=== PATIENT | female | born 1940 | race Caucasian/White ===

== ENCOUNTER 2022-10-10 14:39 | Outpatient (CLI) | payer MEDICARE, SELFPAY ==
--- NOTE | 2022-10-10 15:00 | CRLHL7_ITS ---
For Patients: As a result of the Century Cures Act, medical imaging exams and procedure reports are released immediately into your electronic medical record. You may view this report before your referring provider. If you have questions, please contact your health care provider. INDICATION: HX OF ABNORMAL THYROID ULTRASOUND COMPARISON: No priors are available. TECHNIQUE: Garner scale and color Doppler images were acquired of the thyroid gland. FINDINGS: The thyroid gland demonstrates heterogeneous echogenicity and has a smooth outer contour. The right lobe measures 5.0 x 1.9 x 2.4 cm and the left lobe measures 4.7 x 1.7 x 2.0 cm in size. The isthmus measures 2 millimeters. Hypoechoic nodule within the upper pole of the left thyroid lobe measures 1.1 x 0.9 x 1.0 cm. Sponge like nodule present within the midportion of the left thyroid lobe measuring 1.1 x 0.8 x 1.1 cm. There is a heterogeneous solid and cystic nodule within the lower pole of the right thyroid lobe measuring approximately 3.0 x 1.9 x 2.0 cm although the margins are difficult to ascertain. The color Doppler images demonstrate normal vascularity. There is no evidence of cervical lymphadenopathy or parathyroid mass. IMPRESSION: Bilateral nodules. Given that there is a history of outside thyroid ultrasounds, would recommend obtaining these studies if available. Alternatively, if these do not become available or are not available a follow-up in 1 year is recommended. Dictated by Tan Hay MD @ 10/13/2022 12:03:02 PM (Electronically Signed)
== END 2022-10-10 14:40 | disposition home or self-care (01) ==
PROVIDERS: PCP Family Medicine; Visit Provider Family Medicine
DX: R93.89 Abnormal findings on diagnostic imaging of other specified body structures (principal)
CPT/HCPCS: 76536

== ENCOUNTER 2022-10-24 11:48 | Outpatient (CLI) | payer MEDICARE, SELFPAY | END 2022-10-24 11:49 | disposition home or self-care (01) | LOC: OP CLINIC 11:49 | PROVIDERS: PCP Family Medicine; Visit Provider Internal Medicine | DX: K22.70 Barrett's esophagus without dysplasia (principal) | CPT/HCPCS: 43200; J2250; J3010 ==

== ENCOUNTER 2022-10-26 18:38 | Emergency (ER) | payer MEDICARE, SELFPAY ==
[2022-10-26 19:04] VITALS: BP 159/86; PULSE 84; RESP 18; TEMP 35.9; O2SAT 97; BMI 25.8
--- NOTE | 2022-10-26 19:17 | ED.GENADULT ---
HPI - General Adult General Chief complaint: Ear/Nose/Throat Problem Stated complaint: severe throat and ear pain Time Seen by Provider: 10/26/22 18:41 History of Present Illness HPI narrative: Patient is a pleasant 82 white female lives in [place] here with her daughter. She had an endoscopy attempted couple days ago and the tube was unable to pass there was thought to be some anxiety, some mucus involved. Patient reports she has had pain in her left side of her jaw area and into her ear since that happen. She has had a lot of mucus in her throat, is able to swallow and eat but not without complete discomfort she has no bleeding noticed no blood in her stool no vomiting blood no vomiting or nausea no chest pain breathing problem. Related Data Previous Rx's Medication Instructions Recorded clonazepam 1 mg tablet 1 mg PO BID PRN anxiety #60 tabs 09/10/22 fluoxetine 20 mg capsule 20 mg PO QDAY #90 caps 09/10/22 fluoxetine 40 mg capsule 40 mg PO QDAY #90 caps 09/10/22 gabapentin 300 mg capsule 300 - 600 mg PO TID #360 caps 09/10/22 metformin 500 mg tablet,extended 500 mg PO QDAY #90 tabs 09/10/22 release 24 hr omeprazole 20 mg capsule,delayed 20 mg PO QDAY #90 caps 09/10/22 release oxybutynin chloride 5 mg tablet 5 mg PO BID #180 tabs 09/10/22 Allergies Allergy/AdvReac Type Severity Reaction Status Date / Time Sulfa (Sulfonamide Allergy Mild Itching Verified 09/10/22 10:27 Antibiotics) cholecalciferol (vitamin D3) Allergy Unknown Hives Verified 09/24/22 12:48 ergocalciferol (vitamin D2) Allergy Unknown Verified 09/24/22 12:48 Review of Systems Status of ROS: Reports: 6 or more systems reviewed and unremarkable except as noted in History and below [facility] Medical History History of breast cancer ?Z85.3 - Personal history of malignant neoplasm of breast (ICD-10) Surgical History H/O esophagogastroduodenoscopy (2010) ?Z98.890 - Other specified postprocedural states (ICD-10) H/O mastectomy (1986) ?Z90.10 - Acquired absence of unspecified breast and nipple (ICD-10) History of carpal tunnel surgery of left wrist (2013) ?Z98.890 - Other specified postprocedural states (ICD-10) History of foot surgery (1979) ?Z98.890 - Other specified postprocedural states (ICD-10) History of phacoemulsification of cataract of both eyes with intraocular lens implantation (2007) ?Z98.41 - Cataract extraction status, right eye (ICD-10) ?Z98.42 - Cataract extraction status, left eye (ICD-10) ?Z96.1 - Presence of intraocular lens (ICD-10) Hx of tonsillectomy (1945) ?Z90.89 - Acquired absence of other organs (ICD-10) Family History Mother Alzheimers disease Stroke Father Stroke Social History Smoking Status: Never smoker Do you use any of these nicotine containing products: None Second hand tobacco smoke exposure: No How often do you have a drink containing alcohol: never AUDIT-C Alcohol total score: 0 Non-prescribed substance use: denies use Little interest or pleasure in doing things: several days Feeling down, depressed, or hopeless: several days service: No Exam Narrative: Exam Narrative: Objective: Vital signs look largely unremarkable O2 sats excellent Patient is alert or x3 somewhat anxious HEENT is unremarkable mouth is clear, no redness no bleeding Left TM shows some mild pinkness and prep some fluid behind the left ear. Const: Vital Signs, click to edit/add: Vital Signs - 24 hr 10/26/22 19:04 Temperature 96.7 F L Pulse Rate [Right Pulse Oximeter] 84 Respiratory Rate 18 Blood Pressure [Ri ght Upper Arm] 159/86 H Pulse Oximetry 97 Oxygen Delivery Me thod Room Air Course Vital Signs Vital signs: Initial Vital Signs Temperature 96.7 F L 10/26/22 19:04 Temperature Source Temporal Artery Scan 10/26/22 19:04 Pulse Rate 84 10/26/22 19:04 Respiratory Rate 18 10/26/22 19:04 Blood Pressure 159/86 H 10/26/22 19:04 Blood Pressure Mean 110 H 10/26/22 19:04 Blood Pressure Position Sitting 10/26/22 19:04 Pulse Oximetry 97 10/26/22 19:04 Oxygen Delivery Method Room Air 10/26/22 19:04 Vital Signs Temperature 96.7 F L 10/26/22 19:04 Pulse Rate 84 10/26/22 19:04 Respiratory Rate 18 10/26/22 19:04 Blood Pressure 159/86 H 10/26/22 19:04 Pulse Oximetry 97 10/26/22 19:04 Oxygen Delivery Method Room Air 10/26/22 19:04 Temperature 96.7 F L 10/26/22 19:04 Pulse Rate 84 10/26/22 19:04 Respiratory Rate 18 10/26/22 19:04 Blood Pressure 159/86 H 10/26/22 19:04 Pulse Oximetry 97 10/26/22 19:04 Oxygen Delivery Method Room Air 10/26/22 19:04 Medical Decision Making MDM Narrative Medical decision making narrative: 82-year-old female who has got a history of anxiety and had and Moreno's esophagus diagnostic scope scheduled and difficulty with 2 passage. At this point she has got some evidence of eustachian tube dysfunction, perhaps mild otitis media on the left I think be mckee to try antibiotics and pain medication. The patient was offered CT scanning of the neck to make sure there is no bleeding or mass or other concern and she declined this. I think in the next couple of days she continued as symptoms I would perform CT with IV contrast of her neck I did suggest she could do this today and she wished to defer try antibiotics and pain medication. She will recheck sooner problems or concerns Discharge Plan Discharge Clinical Impression: Dysfunction of eustachian tube, Pain in throat, Acute ear pain Patient Disposition: Home w/ Parent or Adult Condition: Stable Additional Instructions: Light diet, antibiotic and pain medicine as needed. Recheck with primary care in 2-3 days not improving changes concerns worsening return to ED in consider CT scanning of the neck. Return sooner problems or concerns. Activity Level: Light activity Discharge Diet: Full Liquid Prescriptions: No Action clonazepam 1 mg tablet 1 mg PO BID PRN (Reason: anxiety) Qty: 60 0RF fluoxetine 20 mg capsule 20 mg PO QDAY Qty: 90 1RF Rx Instructions: total dose 60mg daily fluoxetine 40 mg capsule 40 mg PO QDAY Qty: 90 1RF Rx Instructions: total dose 60mg daily gabapentin 300 mg capsule 300 - 600 mg PO TID Qty: 360 1RF Rx Instructions: take 600mg in AM, 300mg in afternoon, 300mg at bedtime metformin 500 mg tablet extended release 24 hr 500 mg PO QDAY Qty: 90 3RF omeprazole 20 mg capsule,delayed release(DR/EC) 20 mg PO QDAY Qty: 90 1RF oxybutynin chloride 5 mg tablet 5 mg PO BID Qty: 180 1RF Follow Up/Referrals: Shubham Frankel MD [Primary Care Provider] - Stand Alone Forms: [employer] Info Instructions
== END 2022-10-26 19:41 | disposition home or self-care (01) ==
LOC: ED 19:25
PROVIDERS: Emergency Provider Family Medicine; PCP Family Medicine
DX: H92.02 Otalgia, left ear (principal); H69.80 Other specified disorders of Eustachian tube, unspecified ear; R07.0 Pain in throat
CPT/HCPCS: 99282; 99283; 99284

== ENCOUNTER 2022-10-28 08:57 | Emergency (ER) | payer MEDICARE, SELFPAY ==
[2022-10-28 09:17] VITALS: BP 147/60; PULSE 93; RESP 18; TEMP 36.1; O2SAT 96; BMI 25.4
--- NOTE | 2022-10-28 10:49 | CRLHL7_ITS ---
For Patients: As a result of the Century Cures Act, medical imaging exams and procedure reports are released immediately into your electronic medical record. You may view this report before your referring provider. If you have questions, please contact your health care provider. INDICATION: Chest and neck pain post endoscopy. TECHNIQUE: CT chest without contrast. COMPARISON: None. FINDINGS: Lungs and pleura: Few scattered small, sub 6 millimeter pulmonary nodules (for example 2 millimeter left lower lobe nodule series 4, image 70). No airspace consolidation. No pleural effusions, pleural thickening, or pneumothorax. Heart and vasculature: Heart size is normal. Thoracic aorta and pulmonary artery are normal in caliber. Moderate coronary artery and aortic calcifications. Mitral annular calcifications. Lymph nodes/mediastinum: No mediastinal, hilar, or axillary adenopathy. Air-filled, mildly distended esophagus. No focal esophageal lesion evident. No evidence of perforation. No pneumomediastinum. Chest wall: Right breast implant. No suspicious chest wall aspect. Upper abdomen: Slight low-density nodular thickening of the left adrenal gland, compatible wi with hyperplasia or small adenoma. Bones: Unremarkable for age. IMPRESSION: Air-filled, slightly distended esophagus. No focal esophageal lesion. No findings of esophageal perforation or paraesophageal inflammation. No pneumomediastinum or pneumothorax. Please note that all CT scans at this facility use dose modulation, iterative reconstruction, and/or weight-based dosing when appropriate to reduce radiation dose to as low as reasonably achievable. Dictated by Kwabena Fish MD @ 10/28/2022 12:01:37 PM (Electronically Signed)
--- NOTE | 2022-10-28 10:49 | CRLHL7_ITS ---
For Patients: As a result of the 21st Century Cures Act, medical imaging exams and procedure reports are released immediately into your electronic medical record. You may view this report before your referring provider. If you have questions, please contact your health care provider. Indication: Post upper endoscopy, neck chest and ear pain on the left side, incomplete) DOS copy Technique: Volumetric multidetector CT images of the cervical soft tissues were obtained before and after the administration of low osmolar intravenous contrast. 81 cc Isovue 370 low osmolar intravenous contrast Comparison: None available. Findings: The partially visualized brain parenchyma is normal in attenuation without evidence of abnormal enhancement. The orbits and their contents are within normal limits. The paranasal sinuses are clear. The mastoid air cells are clear. The nasopharynx is unremarkable. The fossae of Rosenmuller are clear. There is minimal mucosal prominence within the oropharynx without evidence of mass. Evaluation is mildly limited due to beam hardening artifact. There is demonstration of a somewhat bulky appearance of the left hypopharynx with effacement of the left piriform sinus and thickening of the epiglottis and aryepiglottic folds. This is best appreciated on series 6, image 36. There is demonstration of focal low-density mass versus marked thickening of the proximal esophagus seen best on series 6, image 54 measuring 1.8 centimeters in greatest dimension. There is effacement of the posterior trachea at this level. There is prominence of the right laryngeal ventricle and lateralization of the vocal fold which may represent vocal fold paralysis. There is a bulky thyroid gland again seen with multiple nodules. There are somewhat pathologic appearing lymph nodes in the left infraclavicular space on series 6, image 49 measuring 1.2 centimeters in greatest dimension. The jugular veins are patent. There is severe atherosclerotic calcification of the left greater than right carotid bifurcations with likely high-grade stenosis of the left carotid artery. There is additional likely 50 percent stenosis of the proximal right internal carotid artery. The distal internal carotid arteries are otherwise patent. The lung apices demonstrate mild interstitial prominence which may represent minimal bronchial thickening versus pulmonary vascular congestion. There is a somewhat patulous esophagus appreciated with multiple lymph nodes in the prevascular space. The cervical vertebral body heights are grossly maintained with moderate to severe degenerative disc disease with disc height loss and marginal osteophyte formation. There is anterolisthesis of C3 on C4 and C4 on C5. There is degenerative change of the atlantoaxial joint and severe facet arthrosis. Impression: Somewhat bulky appearance of the hypo pharyngeal mucosa with effacement of the left piriform sinus and epiglottis without obvious discrete mass. Finding may represent moderate edema. Demonstration of a circumscribed mass lesion within the visualized proximal esophagus with rim enhancement best seen on series 6, image 54. This finding could represent an esophageal mass lesion versus focal stricture. Correlate with recent failed endoscopy. Somewhat pathologic appearance of left infraclavicular lymph nodes. 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 Please note that all CT scans at this facility use dose modulation, iterative reconstruction, and/or weight-based dosing when appropriate to reduce radiation dose to as low as reasonably achievable. Dictated by Sunil Islas MD @ 10/28/2022 12:10:32 PM (Electronically Signed)
[2022-10-28 11:04] LABS: Troponin, Point-of-Care* 0.01 ng/ml (0.01-0.04)
[2022-10-28 11:07] LABS: Lactate* 1.1 mmol/L (0.5-1.9)
[2022-10-28 11:15] LABS: Basophils Absolute Auto 0.04 K/uL (0.00-0.30); Basophils Percent Auto 0.5 % (0.0-3.0); Eosinophils Absolute Auto 0.09 K/uL (0.00-0.50); Eosinophils Percent Auto 1.1 % (0.0-7.0); Hematocrit 40.3 % (33.0-51.0); Hemoglobin* 13.2 gm/dL (12.0-16.0); Lymphocytes Percent Auto 17.2 % (20-44); Mean Corpuscular HGB Conc 33 gm/dL (32-36); Mean Corpuscular Hemoglobin 30 pg (26-34); Mean Corpuscular Volume 90 fL (80-100); Monocytes Percent Auto 8.4 % (0.0-11.0); Neutrophils Percent Auto 72.8 % (42.0-72.0); Platelet Count* 221 K/uL (140-440); RDW Coefficient of Variation % 13.6 % (11.5-15.5); Red Blood Count 4.47 m/uL (4.00-5.20); White Blood Count* 8.57 K/uL (4.50-11.00)
[2022-10-28] MEDS: HYDROmorphone 0.5 mg/0.5 ml inj IVP (11:25)
[2022-10-28] MEDS: 0.9 % SODIUM CHLORIDE 1000 ml 1,000 ML IV (11:25)
[2022-10-28] MEDS: PANTOPRAZOLE SODIUM 40 MG INJ IVP (11:26)
[2022-10-28 11:37] LABS: Chloride* 105 mmol/L (96-114)
[2022-10-28 11:38] LABS: Albumin* 4.5 g/dL (3.3-5.0); D Dimer Quantitative* 1.66 ug/ml (0.00-0.50); Sodium* 138 mmol/L (135-149)
[2022-10-28 11:40] LABS: Amylase* 54 U/L (18-89); Slide Review Reflex No
[2022-10-28 11:41] LABS: Alkaline Phosphatase* 55 U/L (40-150); Aspartate Amino Transferase* 20 U/L (12-35); Bilirubin Direct* 0.3 mg/dL (0.0-0.5); Bilirubin Total* 0.9 mg/dL (0.1-1.5); Blood Urea Nitrogen* 19 mg/dL (7-30); Carbon Dioxide* 23 mmol/L (20-32); Creatinine* 0.8 mg/dL (0.5-1.5); Est. Creatinine Clearance* 43.75; Estimated Glomerular Filt Rate 74 ml/min; Glucose* 121 mg/dL (60-115); Lipase* 38 U/L (23-300); Total Protein* 8.2 g/dL (6.0-8.3)
[2022-10-28 11:42] LABS: Alanine Aminotransferase* 13 U/L (4-35); Calcium* 9.8 mg/dL (8.4-10.6)
[2022-10-28 11:44] LABS: C Reactive Protein* 3.2 mg/dL (0.5-1.0)
[2022-10-28 11:54] LABS: PCR FLU A Negative PCR FLU A (Negative); PCR FLU B Negative PCR FLU B (Negative); PCR RSV Negative PCR RSV (Negative)
[2022-10-28 12:05] LABS: SARS PCR* Negative SARS-CoV-2 (Negative)
--- NOTE | 2022-10-28 16:37 | ED_ITS ---
HPI - General Adult General Chief complaint: Ear/Nose/Throat Problem Stated complaint: Endoscopy complications Time Seen by Provider: 10/28/22 10:47 Source: patient and family Mode of arrival: ambulatory Limitations: no limitations History of Present Illness HPI narrative: Patient is the 82-year-old female who underwent a upper endoscopy for the primary indication of follow-up parents, on Thursday since then she has been out tough time swallowing, it painful it goes up into her left ear, she was seen in the emergency room, started on antibiotics, and was offered a CT scan but she declined. She is back in today issues been no further improvement. Denies any fevers chills or sweats, no weight loss, denies any chest pain shortness of breath abdominal pain has been able to drink small amounts okay. Related Data Previous Rx's Medication Instructions Recorded clonazepam 1 mg tablet 1 mg PO BID PRN anxiety #60 tabs 09/10/22 fluoxetine 20 mg capsule 20 mg PO QDAY #90 caps 09/10/22 fluoxetine 40 mg capsule 40 mg PO QDAY #90 caps 09/10/22 gabapentin 300 mg capsule 300 - 600 mg PO TID #360 caps 09/10/22 metformin 500 mg tablet,extended 500 mg PO QDAY #90 tabs 09/10/22 release 24 hr omeprazole 20 mg capsule,delayed 20 mg PO QDAY #90 caps 09/10/22 release oxybutynin chloride 5 mg tablet 5 mg PO BID #180 tabs 09/10/22 Allergies Allergy/AdvReac Type Severity Reaction Status Date / Time Sulfa (Sulfonamide Allergy Mild Itching Verified 09/10/22 10:27 Antibiotics) cholecalciferol (vitamin D3) Allergy Unknown Hives Verified 09/24/22 12:48 ergocalciferol (vitamin D2) Allergy Unknown Verified 09/24/22 12:48 Review of Systems Status of ROS: Reports: 10 or more systems reviewed and unremarkable except as noted in History and below PFSH PFS Medical History History of breast cancer ?Z85.3 - Personal history of malignant neoplasm of breast (ICD-10) Surgical History H/O esophagogastroduodenoscopy (2010) ?Z98.890 - Other specified postprocedural states (ICD-10) H/O mastectomy (1986) ?Z90.10 - Acquired absence of unspecified breast and nipple (ICD-10) History of carpal tunnel surgery of left wrist (2013) ?Z98.890 - Other specified postprocedural states (ICD-10) History of foot surgery (1979) ?Z98.890 - Other specified postprocedural states (ICD-10) History of phacoemulsification of cataract of both eyes with intraocular lens implantation (2007) ?Z98.41 - Cataract extraction status, right eye (ICD-10) ?Z98.42 - Cataract extraction status, left eye (ICD-10) ?Z96.1 - Presence of intraocular lens (ICD-10) Hx of tonsillectomy (1945) ?Z90.89 - Acquired absence of other organs (ICD-10) Family History Mother Alzheimers disease Stroke Father Stroke Social History Smoking Status: Never smoker Do you use any of these nicotine containing products: None Second hand tobacco smoke exposure: No How often do you have a drink containing alcohol: never AUDIT-C Alcohol total score: 0 Non-prescribed substance use: denies use Little interest or pleasure in doing things: several days Feeling down, depressed, or hopeless: several days service: No Exam Narrative: Exam Narrative: Patient is seen and stabilization room 2, she is in no apparent distress, her pupils are equal round reactive to light, there is no scleral icterus redness or TMs are normal, oropharynx is normal, and seems with no masses bleeding, chest is clear bilaterally the wheezing crackles noted heart sounds are normal, abdomen is soft, there is no guarding, no organomegaly, no tenderness to palpation, neck reveals no tenderness to palpation, no obvious masses, Const: Vital Signs, click to edit/add: Vital Signs - 24 hr 10/28/22 09:17 Temperature 96.9 F L Pulse Rate [Right Pulse Oximeter] 93 Respiratory Rate 18 Blood Pressure [Ri ght Upper Arm] 147/60 H Pulse Oximetry 96 Oxygen Delivery Me thod Room Air Documenting provider has reviewed patient's vital signs: yes Course Course Hospital Course: Patient is remains stable here, can not swallow small amount of fluids, findings from the CT did not show any evidence of perforation or air perforation there is no significant abscess, but there was a mass, laboratory work here was reassuring also cough. I did bring in her primary care physician and endoscopy past Dr. Harrell to see the patient, he thought the barium swallow would be helpful tomorrow, but she would likely need to see [facility] for further delineation. Some prednisone, along with the concurrent antibiotics, and Prilosec will be the medications going out with. He was comfortable this, we went over signs symptoms of worsening where she should re-presented. Vital Signs Vital signs: Initial Vital Signs Temperature 96.9 F L 10/28/22 09:17 Temperature Source Temporal Artery Scan 10/28/22 09:17 Pulse Rate 93 10/28/22 09:17 Respiratory Rate 18 10/28/22 09:17 Blood Pressure 147/60 H 10/28/22 09:17 Blood Pressure Mean 89 10/28/22 09:17 Blood Pressure Position Sitting 10/28/22 09:17 Pulse Oximetry 96 10/28/22 09:17 Oxygen Delivery Method Room Air 10/28/22 09:17 Vital Signs Temperature 96.9 F L 10/28/22 09:17 Pulse Rate 93 10/28/22 09:17 Respiratory Rate 18 10/28/22 09:17 Blood Pressure 147/60 H 10/28/22 09:17 Pulse Oximetry 96 10/28/22 09:17 Oxygen Delivery Method Room Air 10/28/22 09:17 Temperature 96.9 F L 10/28/22 09:17 Pulse Rate 93 10/28/22 09:17 Respiratory Rate 18 10/28/22 09:17 Blood Pressure 147/60 H 10/28/22 09:17 Pulse Oximetry 96 10/28/22 09:17 Oxygen Delivery Method Room Air 10/28/22 09:17 Medical Decision Making MDM Narrative Medical decision making narrative: During this diagnosis I considered multiple diagnosis such as perforation, cancer, tonsillitis, retropharyngeal abscess, Raman's angina, strep the coccus tonsillitis, viral tonsillitis, Medical Records Medical records reviewed: Yes I reviewed the patient's medical records Lab Data Lab results reviewed: Yes I reviewed the patient's lab results Labs: Lab Results 10/28/22 10/28/22 Range/Units 10:30 10:50 WBC 8.57 (4.50-11.00) K/uL RBC 4.47 (4.00-5.20) m/uL Hgb 13.2 (12.0-16.0) gm/dL Hct 40.3 (33.0-51.0) % MCV 90 (80-100) fL MCH 30 (26-34) pg MCHC 33 (32-36) gm/dL RDW Coeff of Ruthie 13.6 (11.5-15.5) % Plt Count 221 (140-440) K/uL Neut % (Auto) 72.8 H (42.0-72.0) % Lymph % (Auto) 17.2 L (20-44) % Dupage % (Auto) 8.4 (0.0-11.0) % Eos % (Auto) 1.1 (0.0-7.0) % Baso % (Auto) 0.5 (0.0-3.0) % Neut # (Auto) 6.20 (1.7-7.0) K/uL Lymph # (Auto) 1.50 (0.90-2.90) K/uL Dupage # (Auto) 0.70 (0.00-0.90) K/UL Eos # (Auto) 0.09 (0.00-0.50) K/uL Baso # (Auto) 0.04 (0.00-0.30) K/uL D-Dimer Quant (PE/DVT) 1.66 H (0.00-0.50) ug/ml Sodium 138 (135-149) mmol/L Potassium 4.0 (3.6-5.1) mmol/L Chloride 105 (96-114) mmol/L Carbon Dioxide 23 (20-32) mmol/L BUN 19 (7-30) mg/dL Creatinine 0.8 (0.5-1.5) mg/dL Estimated Creat Clear 43.75 Estimated GFR 74 ml/min Glucose 121 H (60-115) mg/dL Lactate 1.1 (0.5-1.9) mmol/L Calcium 9.8 (8.4-10.6) mg/dL Total Bilirubin 0.9 (0.1-1.5) mg/dL Direct Bilirubin 0.3 (0.0-0.5) mg/dL AST 20 (12-35) U/L ALT 13 (4-35) U/L Alkaline Phosphatase 55 (40-150) U/L C-Reactive Protein 3.2 H (0.5-1.0) mg/dL Total Protein 8.2 (6.0-8.3) g/dL Albumin 4.5 (3.3-5.0) g/dL Amylase 54 (18-89) U/L Lipase 38 (23-300) U/L SARS-CoV-2 (PCR) Negative SARS-CoV-2 (Negative) Influenza Type A (PCR) Negative PCR FLU A (Negative) Influenza Type B (PCR) Negative PCR FLU B (Negative) RSV (PCR) Negative PCR RSV (Negative) POC Troponin I 0.01 (0.01-0.04) ng/ml Imaging Data CT Chest/Ab/Pelvis: Radiologist's impression: atient: BRENTON KEATING Facility:?[facility] Patient ID:?[id number] Site Patient ID:?[id number]. Site :?[id number] Study:?CT ST Neck W/ and W/O Cont 81ML ISOVUE 370-10/28/2022 11:38:05 AM Ordering Physician:Pancho Bertrand Final Report: Indication: Post upper endoscopy, neck chest and ear pain on the left side, incomplete) DOS copy Technique: Volumetric multidetector CT images of the cervical soft tissues were obtained before and after the administration of low osmolar intravenous contrast. 81 cc Isovue 370 low osmolar intravenous contrast Comparison: None available. Findings: The partially visualized brain parenchyma is normal in attenuation without evidence of abnormal enhancement. The orbits and their contents are within normal limits. The paranasal sinuses are clear. The mastoid air cells are clear. The nasopharynx is unremarkable. The fossae of Rosenmuller are clear. There is minimal mucosal prominence within the oropharynx without evidence of mass. Evaluation is mildly limited due to beam hardening artifact. There is demonstration of a somewhat bulky appearance of the left hypopharynx with effacement of the left piriform sinus and thickening of the epiglottis and aryepiglottic folds. This is best appreciated on series 6, image 36. There is demonstration of focal low-density mass versus marked thickening of the proximal esophagus seen best on series 6, image 54 measuring 1.8 centimeters in greatest dimension. There is effacement of the posterior trachea at this level. There is prominence of the right laryngeal ventricle and lateralization of the vocal fold which may represent vocal fold paralysis. There is a bulky thyroid gland again seen with multiple nodules. There are somewhat pathologic appearing lymph nodes in the left infraclavicular space on series 6, image 49 measuring 1.2 centimeters in greatest dimension. The jugular veins are patent. There is severe atherosclerotic calcification of the left greater than right carotid bifurcations with likely high-grade stenosis of the left carotid artery. There is additional likely 50 percent stenosis of the proximal right internal carotid artery. The distal internal carotid arteries are otherwise patent. The lung apices demonstrate mild interstitial prominence which may represent minimal bronchial thickening versus pulmonary vascular congestion. There is a somewhat patulous esophagus appreciated with multiple lymph nodes in the prevascular space. The cervical vertebral body heights are grossly maintained with moderate to severe degenerative disc disease with disc height loss and marginal osteophyte formation. There is anterolisthesis of C3 on C4 and C4 on C5. There is degenerative change of the atlantoaxial joint and severe facet arthrosis. Impression: Somewhat bulky appearance of the hypo pharyngeal mucosa with effacement of the left piriform sinus and epiglottis without obvious discrete mass. Finding may represent moderate edema. Demonstration of a circumscribed mass lesion within the visualized proximal e sophagus with rim enhancement best seen on series 6, image 54. This finding could represent an esophageal mass lesion versus focal stricture. Correlate with recent failed endoscopy. Somewhat pathologic appearance of left infraclavicular lymph nodes. 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 Please note that all CT scans at this facility use dose modulation, iterative reconstruction, and/or weight-based dosing when appropriate to reduce radiation dose to as low as reasonably achievable. Dictated by Sunil Islas MD @ 10/28/2022 12:10:32 PM (Electronic Signature) Discharge Plan Discharge Clinical Impression: Carotid artery stenosis, Hypopharyngeal mass Patient Disposition: Home w/ Parent or Adult Condition: Stable Additional Instructions: Patient will be discharged, clear fluid diet, prednisone antibiotics pain medications, follow-up tomorrow for upper GI swallow, return here if increasing nausea vomiting inability to swallow. Prescriptions: No Action clonazepam 1 mg tablet 1 mg PO BID PRN (Reason: anxiety) Qty: 60 0RF fluoxetine 20 mg capsule 20 mg PO QDAY Qty: 90 1RF Rx Instructions: total dose 60mg daily fluoxetine 40 mg capsule 40 mg PO QDAY Qty: 90 1RF Rx Instructions: total dose 60mg daily gabapentin 300 mg capsule 300 - 600 mg PO TID Qty: 360 1RF Rx Instructions: take 600mg in AM, 300mg in afternoon, 300mg at bedtime metformin 500 mg tablet extended release 24 hr 500 mg PO QDAY Qty: 90 3RF omeprazole 20 mg capsule,delayed release(DR/EC) 20 mg PO QDAY Qty: 90 1RF oxybutynin chloride 5 mg tablet 5 mg PO BID Qty: 180 1RF Follow Up/Referrals: Shubham Frankel MD [Primary Care Provider] - Stand Alone [facility]: [facility]
== END 2022-10-28 13:39 | disposition home or self-care (01) ==
PROVIDERS: Emergency Provider Family Medicine; PCP Family Medicine
DX: J39.2 Other diseases of pharynx (principal); I65.29 Occlusion and stenosis of unspecified carotid artery
CPT/HCPCS: 36415; 70492; 71250; 80048; 80076; 81001; 82150; 83605; 83690; 84484; 85025; 85379; 86140; 87631; 93005; 96374; 96375; 99284; 99285; C9113; J1170; J7030; Q9967

== ENCOUNTER 2022-10-29 10:53 | Outpatient (CLI) | payer MEDICARE, SELFPAY ==
--- NOTE | 2022-10-29 11:15 | CRLHL7_ITS ---
For Patients: As a result of the Century Cures Act, medical imaging exams and procedure reports are released immediately into your electronic medical record. You may view this report before your referring provider. If you have questions, please contact your health care provider. INDICATION: 82 year-old female. Pharyngeal edema. Recent attempted upper endoscopy approximately 6 days ago. Reportedly the endoscope could not be passed beyond the cervical esophagus. The patient relates feeling much improved over the last 1-2 days and was actually able to eat some food last night without any significant difficulty. TECHNIQUE : Single-contrast esophagram. COMPARISON: Correlation is made with a soft tissue neck CT and chest CT October 28, 2022. FINDINGS: There is mild narrowing of the upper most cervical esophagus possibly related to edema. The appearance is not convincing for a malignant stricture. There is no obstruction or holdup of barium at any point during the evaluation. There was minor penetration of barium to the level of the vocal cords seen initially on the initial lateral view. No aspiration. The mid to distal esophagus was somewhat patulous throughout with some tertiary contractions toward the end of the examination. There was incomplete emptying of the with the patient in the right lateral decubitus position which was partly cleared when the patient was returned upright. Questionable very small sliding-type esophageal hiatal hernia. The stomach is unremarkable. Small duodenal diverticulum arising from the 2nd portion of the duodenum. 3 minutes 58 seconds stressful time utilized. These findings were discussed in detail with the patient`s daughter who was present for the examination. IMPRESSION: 1. Mild narrowing of the upper cervical esophagus possibly related to postinflammatory narrowing. Consider clinical correlation and short-term follow-up/repeat of this study in 3 months unless upper endoscopy is contemplated again. 2. Mild presbyesophagus. No obstruction. 3. Questionable small sliding-type hiatal hernia without obvious reflux. 4. Mild penetration of barium to the vocal cords at the beginning of the examination. No hilda aspiration. Dictated by Cosme Sofia MD @ 10/29/2022 3:50:41 PM (Electronically Signed)
== END 2022-10-29 10:54 | disposition home or self-care (01) ==
PROVIDERS: PCP Family Medicine; Visit Provider Family Medicine
DX: R13.10 Dysphagia, unspecified (principal); K44.9 Diaphragmatic hernia without obstruction or gangrene
CPT/HCPCS: 74220

== ENCOUNTER 2024-12-11 18:31 | Emergency (ER) | payer MEDICARE, SELFPAY ==
[2024-12-11] VITALS (14 sets, daily range): BP systolic 184–219; BP diastolic 71–98; PULSE 78–91; RESP 8–40; TEMP 36.4; O2SAT 94–97
--- OUTSIDE RECORDS SUMMARY | 2024-12-11 18:32 | XMS_ITS | Clinical Summary ---
Author Organization [facility] Address [address] [place] [id number] Care Team Providers Care Carpet Installer Name Role Phone Franklin Espinoza MD Primary Care P rovider Allergies Active Allergy Reactions Criticality Noted Date Comments Sulfa (Sulfonamide Antibiotics) Itching 10/04 Medications medication order composer Take 3 Capfuls by mouth once daily. Nitric Oxide 0 03/23/20 Active loperamide (IMODIUM) 2 mg tablet Take 4 tablets as needed by oral route. Active Sodium Fluoride (PreviDent 5000 Dry Mouth) 1.1 % pste Use a pea size amount to brush teeth nightly. Expectorate. Do not rinse Active mirabegron EXTENDED-release (MYRBETRIQ) 25 mg tabletIndications: Overactive bladder Take 1 Tablet (25 mg) by mouth once daily. 90 Tablet 3 04/27/20 23 Active Additional Information Patient taking differently:25 mg Oral DAILY,prn, Reported on 11/11/2024 omeprazole (PRILOSEC) 20 mg Delayed-Release capsuleIndications :Chronic GERD,History of Moreno's esophagus Take 1 Capsule (20 mg) by mouth once daily before a meal. 90 Capsule 3 07/24/19 24 Active gabapentin 300 mg capsuleIndications :Peripheral polyneuropathy Take 1 Capsule (300 mg) by mouth once daily. 90 Capsule 3 10/05/19 25 Active Additional Information Patient taking differently:300 mg Oral DAILY,PRN, Reported on 11/11/2024 FLUoxetine 40 mg capsuleIndications :Generalized anxiety disorder,Depressio n, recurrent Take 1 Capsule (40 mg) by mouth once daily. 90 Capsule 3 11/12/19 25 Active FLUoxetine 20 mg capsuleIndications :Generalized anxiety disorder,Depressio n, recurrent Take 1 Capsule (20 mg) by mouth once daily. with a 40 mg capsule for a total of 60 mg. 90 Capsule 3 11/12/19 25 Active clonazePAM 0.5 mg tabletIndications: Generalized anxiety disorder,Insomnia, idiopathic Take 0.5-1 Tablets (0.25-0.5 mg) by mouth once daily if needed (severe anxiety). Maximum of 30 per 90 days. Further refills will be prescribed during an appointment, no sooner than 02/11/2025 30 Tablet 11/12/19 25 Active naltrexone 50 mg tabletIndications: Alcohol use disorder Take 1 Tablet (50 mg) by mouth once daily. 60 Tablet 11/12/19 25 Active lisinopriL 5 mg tabletIndications: HTN (hypertension) Take 1 Tablet (5 mg) by mouth once daily. 45 Tablet 11/12/19 25 Active Active Problems Problem Noted Date Diagnosed Date Stage 3a chronic kidney disease 11/11/2024 Alcohol use disorder, moderate, dependence 04/27 Depression, recurrent 12/04/2022 Peripheral polyneuropathy 12/04/2022 History of Moreno's esophagus 12/04/2022 Primary osteoarthritis of both knees 12/04/2022 Overview (12/05/2024): Severe on XR 11/2024 Type 2 diabetes mellitus wit h diabetic polyneuropathy, without long-term current use of insulin 12/04/2022 Hyperlipidemia 12/04/2022 Chronic bilateral low back pain 12/04/2022 Bilateral foot pain 12/04/2022 Multiple thyroid nodules 12/04/2022 Overview (12/04/2022): Needs repeat thyroid ultrasound September 2023. Known bilateral nodules. Last US through [facility] Overactive bladder 12/04/2022 History of breast cancer 12/04/2022 Overview (10/14/2023): S/p bilateral mastectomy 2010, followed by 5 years of Letrozole Osteopenia of neck of left femur 12/04/2022 Overview (12/04/2022): Needs repeat DEXA Apr 2023 Resolved Problems Problem Noted Date Diagnosed Date Resolved Date Malignant neoplasm of female breast, unspecified estrogen receptor status, unspecified laterality, unspecified site of breast 04/27/2023 10/14/2023 Encounters Date Type Department Care Team Description 12/05/[address] [address] Franklin Espinoza MD Results 12/02/2024 2:00 PM CDT Ancillary Procedure [address] [address] 12/02/2024 Travel 11/25/2024 Nurse Triage [address] [address] Franklin Espinoza MD Dizziness 11/14/2024 Telephone [facility] [phone] Matthew Watts MD Lab (Test cancellation/) 11/14/[address] [address] Franklin Espinoza MD Results 11/11/2024 3:05 PM CDT Office Visit [address] [address] Franklin Espinoza MD Establish Care 11/11/2024 10:00 AM CDT Office Visit [address] [address] Matthew Watts MD Mental Health Intake 11/11/2024 Travel 11/03/[address] [address] Matthew Watts MD Pre-Visit Intake 10/03/[address] [address] Saumya Dumont, DO Refill Request (FLUoxetine (PROZAC) 20 mg tablet; gabapentin (NEURONTIN) 300 mg capsule) 09/22/[address] [address] Saumya Dumont DO Follow Up 09/16/2024 1:45 PM CDT Office Visit [facility] [address] [place] [address] Saumya Dumont DO Diabetes (6 month check); Medication Management (Review/renew - feels she needs more Clonopin); Anxiety (Increase in symptoms, social anxiety, insomnia, reports falling from withdrawal) 09/16/2024 Travel from Last 3 Months Immunizations Immunization Administration Dates Next Due COVID-19 vaccine (Moderna 100mcg/0.5mL) PF, MDV 10/25/2021 COVID-19 vaccine (NOWBOX-Bio NTech 30mcg/0.3mL) 12YO+ BIVALENT PF, MDV 04/09/2022 COVID-19 vaccine (Pfizer-Bio NTech 30mcg/0.3mL) 12YO+ JULI-SUCROSE PF, MDV 05/15/2021,09/12/2020,08/20/2020 COVID-19 vaccine (NOWBOX-Bio NTech 30mcg/0.3mL) PF, MDV 05/15/2021 Influenza Virus, Unspecified 04/09/2022, 04/25/2020,08/06/2017,05/26 Influenza, High-dose Quadriv alent Inactivated 04/28/2023 Influenza, IIV3 (Age >=3 years) 04/07/2016 Influenza, Inactivated IIV3 (Age 65+ Years) Preserv Free 04/16/2024,04/15/2024 Pneumococcal Poly,23-Valent (Pneumovax) 08/27/2012 Pneumococcal conj 13-Valent (Prevnar 13) 04/25/2020 RSV, Bivalent Vaccine Recons tituted (Abrysvo 120MCG/0.5mL) 08/11/2023 Td (Age >=7 Years) 03/12/2022 Tdap 03/12/2022 Zoster (Zostavax-ZVL, live) 12/18/2013 Social History Tobacco Use Types Packs/Day Years Used Date Smoking Tobacco: Never Smokeless Tobacco: Never Tobacco Cessation:Counseling Given: Yes Alcohol Use Standard Drinks/Week Comments Not Asked 14 (1 standard drink = 0.6 oz pure alcohol) 1-2 drinks per night, wine to relax, whiskey for pain PHQ-2 Answer Date Recorded PHQ-2 TOTAL SCORE 1 11/11/2024 Social Connections Answer Date Recorded Do you often feel lonely or isolated from those around you? 0 09/16/2024 Financial Resource Strain Answer Date R ecorded Difficulty of Paying Living Expenses 3 09/16/2024 Difficulty of Paying Living Expenses Not on file 09/16/2024 Food Insecurity Answer Date Recorded Do you worry your food will run out before you are able to buy more? 1 09/16/2024 Transportation Needs Answer Date Record ed Does lack of transportation keep you from medica l appointments? 1 09/16/2024 Does lack of transportation keep you from work, meetings or getting things that you need? 1 09/16/2024 Housing Stability Answer Date Recorded What is your housing situation today? 1 09/16/2024 Utilities Answer Date Recorded Do you have trouble paying f or utilities (for example, heat, electricity, water, phone)? 1 09/16/2024 Comments No Sex and Gender Information Value Date Recorded Sex Assigned at Not on file Legal Sex Female 10:54 AM [employer] Gender Identity Not on file Sexual Orientation Not on file Obstetrics History Last Filed Vital Signs Vital Sign Reading Time Taken Comments Blood Pressure 155/74 11/11/2024 4:04 PM CDT Pulse 87 11/11/2024 2:47 PM CDT Temperature - - Respiratory Rate - - Oxygen Saturation 96% 11/11/2024 2:47 PM CDT Inhaled Oxygen Concentration - - Weight 89.8 kg (198 lb) 11/11/2024 2:47 PM CDT Height 170.2 cm (5' 7) 11/11/2024 2:47 PM CDT Body Mass Index 31.01 11/11/2024 2:47 PM CDT Plan of Treatment Upcoming Encounters Date Type Department Care Team (Late st Contact Info) Description 12/16/2024 1:00 PM CDT Office Visit [facility] [address] [place] [address] Franklin Espinoza MD [address] [place] [address] 12/26/2024 12:30 PM CDT Office Visit [facility] [address] [place] [address] Matthew Watts MD [address] [place] [address] 01/30/2025 2:00 PM CDT Office Visit [facility] [address] [place] [address] Matthew Watts MD [address] [place] [address] 02/27/2025 2:00 PM CDT Office Visit [facility] [address] [place] [address] Matthew Watts MD [address] [place] [address] 04/03/2025 2:00 PM CDT Office Visit [facility] [address] [place] [address] Matthew Watts MD [address] [place] [address] Health Maintenance Due Date Last Done Comments Zoster (shingles) series for age 50+ (2 of 3) 02/12/2014 12/18/2013 Medicare Wellness for age 65+ 07/24/2024 07/24/2023 COVID-19 vaccine series ( season) 2024 05/18/2024, 05/22/2023, 04/09/2022, Additional history exists BMI (ht and wt on same day) for age 18+ 11/11/2025 11/11/2024, 11/11/2024, 07/24/2023, Additional history exists Depression screening for age 12+ 11/14/2025 11/14/2024, 11/14/2024, 11/11/2024, Additional history exists Tetanus booster 03/12/2032 03/12/2022, 03/12/2022 Pneumococcal series for age 50+ Completed 04/25/2020, 08/27/2012 Tdap Completed 03/12/2022 DEXA/DXA scan for age 65+ Completed 07/27/2023 RSV vaccine for adults or Completed 08/11/2023 Influenza Vaccine Completed 04/16/2024, , 04/09/2022, Additional history exists Hepatitis B series for 19+ Aged Out N o longer eligible based on patient's age to complete this topic Procedures Procedure Name Priority Date/Time Associated Diagnosis Comments XR KNEE WB 2 VIEWS BILATERAL AND 1 VIEW BILATERAL Routine 12/02/2024 2:01 PM CDT Chronic pain of both knees HEPATIC FUNCTION PANEL Routine 11/11/2024 4:32 PM CDT Alcohol use disorder XR DXA BONE DENSITY 2 SITES AXIAL Routine 07/27/2023 3:42 PM [employer] Postmenopausal Osteopenia of neck of left femur from Last 3 Months or Most Recently Relevant to Health Maintenance Results * XR KNEE WB 2 VIEWS BILATERAL AND 1 VIEW BILATERAL (12/02/2024 2:01 PM CDT) Anatomical Region Laterality Modality KNEES Computed Radiogr aphy 12/04/2024 5:38 PM CDT Narrative 12/04/2024 5:38 PM CDT For Patients: As a result of the Cures Act, medical imaging exams and procedure reports are released immediately into your electronic medical record. You may view this report before your referring provider. If you have questions, please contact your health care provider. Indication: Chronic bilateral knee pain. Technique: Three views of the right knee and three views of the left knee. Comparison: None. Findings: Right knee: Severe osteoarthritis of the tibiofemoral and patellofemoral joints. Small knee joint effusion. Multiple intra-articular loose bodies. Chondrocalcinosis. Osteopenia. No fracture or osteonecrosis. Left knee: Severe osteoarthritis of the tibiofemoral and patellofemoral joints. Chondrocalcinosis. Osteopenia. No fracture or osteonecrosis. Possible small intra-articular loose body within the suprapatellar pouch. Trace joint effusion. Normal soft tissues. Impression: Bilateral knee osteoarthritis and chondrocalcinosis. Dictated by Venkat Lam MD @ 12/04/2024 5:38:14 PM (Electronically Signed) Procedure Note Venkat Lam MD - 12/04/2024 For Patients: As a result of the Cures Act, medical imagingexams and procedure reports are released immediately into your electronicmedical record. You may view this report before your referring provider.If you have questions, please contact your health care provider. Indication: Chronic bilateral knee pain. Technique: Three views of the right knee and three views of the left knee. Comparison: None. Findings: Right knee: Severe osteoarthritis of the tibiofemoral and patellofemoraljoints. Small knee joint effusion. Multiple intra-articular loose bodies.Chondrocalcinosis. Osteopenia. No fracture or osteonecrosis. Left knee: Severe osteoarthritis of the tibiofemoral and patellofemoraljoints. Chondrocalcinosis. Osteopenia. No fracture or osteonecrosis.Possible small intra-articular loose body within the suprapatellar pouch.Trace joint effusion. Normal soft tissues. Impression: Bilateral knee osteoarthritis and chondrocalcinosis. Dictated by Venkat Lam MD @ 12/04/2024 5:38:14 PM (Electronically Signed) Franklin Espinoza MD GENERAL IMAGING Final Result * (ABNORMAL) LIVER PANEL (HEPATIC FUNCTION PANEL) (11/11/2024 4:32 PM CDT) PROTEIN, TOTAL 7.8 6.1 - 8.1 g/dL [facility] ALBUMIN 4.7 3.6 - 5.1 g/dL [facility] GLOBULIN 3.1 1.9 - 3.7 g/dL (calc) [facility] ALBUMIN/GLOBULIN RATIO 1.5 1.0 - 2.5 (calc) [facility] BILIRUBIN, TOTAL 0.9 0.2 - 1.2 mg/dL [facility] BILIRUBIN, DIRECT 0.2 < OR = 0.2 mg/dL [facility] BILIRUBIN, INDIRECT 0.7 0.2 - 1.2 mg/dL (calc) [facility] ALKALINE PHOSPHATASE 69 37 - 153 U/L [facility] AST 87(H) 10 - 35 U/L [facility] ALT 58(H) 6 - 29 U/L [facility] Blood BLOOD SPECIMEN / Unknown 11/11/2024 4:32 PM CDT 11/11/2024 4:33 PM CDT us Franklin Espinoza MD CHEMISTRY Final Result [facility] [address] [place] [address], [facility] [address] [place] [address] * (ABNORMAL) XR DXA BONE DENSITY 2 SITES AXIAL [26322.1] (07/27/2023 3:42 PM [employer] [facility]) Anatomical Region Laterality Modality Spine, HIPS, HIPL, HIPR Other Impressions 08/04/2023 2:29 PM [employer] Osteopenia. RECOMMENDATIONS: The National Osteoporosis Foundation recommends pharmacologic treatment for patients with T-scores of -2.5 or less, patients with prior history of fragility fractures, or patients with 10-year probability of greater than 3% at hips or greater than 20% of suffering major osteoporotic fractures. Recommend continued optimization of calcium and vitamin D intake through dietary means and/or supplementation and regular exercise. Consider pharmacologic therapy for osteopenia with increased fracture risk. Follow-up bone density reading in 2 years if therapy initiated to assess therapeutic efficacy. Orly Hernandez PA-C [facility] 08/04/2023 Narrative 08/04/2023 2:29 PM [employer] For Patients: Results are automatically released to your [employer] ([employer]) account once available, in compliance with federal regulations. This means that you may see your results before your provider has had a chance to review them. Please allow 2-3 business days for your provider to comment on the results. XR DXA Bone Mineral Density (BMD) EXAM LOCATION: [facility] [address] [facility] [id number] PATIENT NAME: Vanessa Paris DATE OF : 1940 EXAM DATE: 07/27/2023 REQUESTING PROVIDER: Saumya Dumont DO GENDER AT : female HEIGHT: 5' 7.4 (07/24/2023) WEIGHT: 191 lb 14.4 oz (07/24/2023) MENOPAUSAL STATUS: Postmenopausal RACE/ETHNICITY: White RISK FACTORS: Alcohol > 3 drinks/day (current), Alcohol > 3 drinks/day (prior), Aromatase Inhibitors (Arimidex, etc.), Cancer Treatment, History of Fragility Fracture (at a major site), and White Race CURRENT MEDICATION FOR BONE LOSS: NONE INDICATION: Post-Menopause COMPARISON DATE(S): None DXA scans are compared to prior studies for a patient only when the two (or more) studies were performed on the same scanner. It is not possible to compare data generated on one scanner to data from another because there are not standards in DXA equipment. This applies even if the two scanners are made by the same marine service operator. PROCEDURE: Dual-energy x-ray absorptiometry performed with routine technique. Reporting is completed in the form of a T-score. The T-score represents the standard deviation from peak bone mass based on young healthy adult. A Z-score is used for diagnosis in premenopausal women, and for men under the age of 50. FINDINGS: RESULT LUMBAR SPINE L1-L4 (EXCLUDE L2, L3) BMD: 1.344 g/cm2 T-Score: + 1.3 Z-Score: + 2.5 Change from prior: None RESULTS FEMUR Left femoral neck BMD: 0.783 g/cm2 T-Score: - 1.8 Z-Score: + 0.0 Change from prior: None Right femoral neck BMD: 0.818 g/cm2 T-Score: - 1.6 Z-Score: + 0.2 Change from prior: None Left hip BMD: 0.891 g/cm2 T-Score: - 0.9 Z-Score: + 0.7 Change from prior: None Right hip BMD: 0.920 g/cm2 T-Score: - 0.7 Z-Score: + 0.9 Change from prior: None WHO criteria: Normal: T-score at or above -1 SD Osteopenia: T-score between -1.1 and -2.4 SD Osteoporosis: T-score at or below -2.5 SD FRAX RISK CALCULATION (USED FOR OSTEOPENIA ONLY): 10-year probability of major osteoporotic fracture: 25.7%. 10-year probability of hip fracture: 8.4%. us Saumya Paulina Shaqra DO DEXA Final Result from Last 3 Months or Most Recently Relevant to Health Maintenance Insurance [facility] [address] [facility] [place] [id number] [facility] MR Care Teams Carpet Installer Relationship Specialty Start Date End Date Franklin Espinoza MD [address] [place] [address] PCP - General Family Practice 11/11/24
--- NOTE | 2024-12-11 18:51 | ED.GENADULT ---
HPI - General Adult General Chief complaint: Hypertension Stated complaint: Lightheaded, high BP Time Seen by Provider: 12/11/24 18:51 History of Present Illness HPI narrative: Arrives with complaints of lightheadedness and HTN that started this AM as well as 2 weeks of feeling a clogged throat like she has phlegm in her throat. Alert and oriented, denies pain, ABCs intact. 84-year-old woman presenting to the emergency department with concern lightheadedness and blood pressure being elevated. She has been recommended check her blood pressures at home. Over the last 3 or 4 months has been checking twice daily blood pressures. She was started on lisinopril few weeks ago. Normally takes 60 mg of fluoxetine daily but has not for the last few days. Does have p.r.n. clonazepam available as well but has not taken that over the last few days. Intermittent dosing of gabapentin for leg pain I think. Sounds like possibly neuropathy. Says she was also prescribed naltrexone but took 1 dose and did not like how it made her feel so she does not continue to take it. Last alcohol drink was yesterday. Has also had a sense of fullness or a ?clogged throat? was initially bilaterally yesterday and now more on the left side. No shortness of breath. No chest pain otherwise. Has also been belching a lot today. No abdominal pain. Does clarify when asked that is indeed lightheadedness more than dizziness. Related Data Previous Rx's ?Medication ?Instructions ?Recorded clonazepam 1 mg tablet 1 mg PO BID PRN anxiety #60 tabs 09/10/22 fluoxetine 20 mg capsule 20 mg PO QDAY #90 caps 09/10/22 fluoxetine 40 mg capsule 40 mg PO QDAY #90 caps 09/10/22 gabapentin 300 mg capsule 300 - 600 mg (1 - 2 x 300 mg) PO 09/10/22 TID #360 caps metformin 500 mg tablet,extended 500 mg PO QDAY #90 tabs 09/10/22 release 24 hr omeprazole 20 mg capsule,delayed 20 mg PO QDAY #90 caps 09/10/22 release oxybutynin chloride 5 mg tablet 5 mg PO BID #180 tabs 09/10/22 Allergies Allergy/AdvReac Type Severity Reaction Status Date / Time Sulfa (Sulfonamide Allergy Mild Itching Verified 12/11/24 18:41 Antibiotics) cholecalciferol (vitamin D3) Allergy Unknown Hives Verified 12/11/24 18:41 ergocalciferol (vitamin D2) Allergy Unknown Verified 12/11/24 18:41 Review of Systems Status of ROS: Reports: 6 or more systems reviewed and unremarkable except as noted in History and below [facility] Medical History History of breast cancer ?Z85.3 - Personal history of malignant neoplasm of breast (ICD-10) Surgical History H/O esophagogastroduodenoscopy (2010) ?Z98.890 - Other specified postprocedural states (ICD-10) H/O mastectomy (1986) ?Z90.10 - Acquired absence of unspecified breast and nipple (ICD-10) History of carpal tunnel surgery of left wrist (2013) ?Z98.890 - Other specified postprocedural states (ICD-10) History of foot surgery (1979) ?Z98.890 - Other specified postprocedural states (ICD-10) History of phacoemulsification of cataract of both eyes with intraocular lens implantation (2007) ?Z98.41 - Cataract extraction status, right eye (ICD-10) ?Z98.42 - Cataract extraction status, left eye (ICD-10) ?Z96.1 - Presence of intraocular lens (ICD-10) Hx of tonsillectomy (1945) ?Z90.89 - Acquired absence of other organs (ICD-10) Family History Mother Alzheimers disease Stroke Father Stroke Social History Smoking Status: Never smoker Do you use any of these nicotine containing products: None Second hand tobacco smoke exposure: No How often do you have a drink containing alcohol: never AUDIT-C Alcohol total score: 0 Non-prescribed substance use: denies use service: No Exam Narrative: Exam Narrative: Here with supportive daughter. Pleasant. Seems restless. Labored in her breathing. Lungs are clear. Heart in regular rate and rhythm. Strong peripheral pulses. She is well-perfused peripherally without edema. Abdomen is overweight soft nontender. There is no pain to palpation over the upper chest Const: Vital Signs, click to edit/add: Vital Signs - 24 hr 12/11/24 18:47 12/11/24 20:06 12/11/24 20:07 Temperature 97.5 F L Pulse Rate 79 Pulse Rate [Pulse Oximeter] 80 Pulse Rate [orthos tatic lying Right Pulse Oximeter] Pulse Rate [orthos tatic sitting Righ t Pulse Oximeter] Pulse Rate [orthos tatic standing Rig ht Pulse Oximeter] Respiratory Rate 20 11 L 8 L Blood Pressure 206/97 H Blood Pressure [Ri ght Upper Arm] 184/71 H Blood Pressure [or thostatic lying Le ft Arm] Blood Pressure [or thostatic sitting Left Arm] Blood Pressure [or thostatic standing Left Arm] Pulse Oximetry 97 [facility] 12/11/24 20:10 12/11/24 20:15 12/11/24 20:16 Temperature Pulse Rate 87 84 Pulse Rate [Pulse Oximeter] Pulse Rate [orthos tatic lying Right Pulse Oximeter] 78 Pulse Rate [orthos tatic sitting Righ t Pulse Oximeter] 79 Pulse Rate [orthos tatic standing Rig ht Pulse Oximeter] 89 Respiratory Rate 12 8 L Blood Pressure 207/92 H Blood Pressure [Ri ght Upper Arm] Blood Pressure [or thostatic lying Le ft Arm] 188/89 H Blood Pressure [or thostatic sitting Left Arm] 194/87 H Blood Pressure [or thostatic standing Left Arm] 206/97 H Pulse Oximetry 95 97 Oxygen Delivery Me thod 12/11/24 20:33 12/11/24 20:36 12/11/24 20:45 Temperature Pulse Rate 91 88 85 Pulse Rate [Pulse Oximeter] Pulse Rate [orthos tatic lying Right Pulse Oximeter] Pulse Rate [orthos tatic sitting Righ t Pulse Oximeter] Pulse Rate [orthos tatic standing Rig ht Pulse Oximeter] Respiratory Rate 34 H 19 19 Blood Pressure 219/98 H Blood Pressure [Ri ght Upper Arm] Blood Pressure [or thostatic lying Le ft Arm] Blood Pressure [or thostatic sitting Left Arm] Blood Pressure [or thostatic standing Left Arm] Pulse Oximetry 94 97 97 Oxygen Delivery Me thod 12/11/24 20:46 12/11/24 21:00 12/11/24 21:02 Temperature Pulse Rate 86 85 86 Pulse Rate [Pulse Oximeter] Pulse Rate [orthos tatic lying Right Pulse Oximeter] Pulse Rate [orthos tatic sitting Righ t Pulse Oximeter] Pulse Rate [orthos tatic standing Rig ht Pulse Oximeter] Respiratory Rate 10 L 40 H 16 Blood Pressure 213/98 H 202/92 H Blood Pressure [Ri ght Upper Arm] Blood Pressure [or thostatic lying Le ft Arm] Blood Pressure [or thostatic sitting Left Arm] Blood Pressure [or thostatic standing Left Arm] Pulse Oximetry 97 97 97 Oxygen Delivery Me thod 12/11/24 21:19 12/11/24 21:30 Temperature Pulse Rate 84 Pulse Rate [Pulse Oximeter] Pulse Rate [orthos tatic lying Right Pulse Oximeter] Pulse Rate [orthos tatic sitting Righ t Pulse Oximeter] Pulse Rate [orthos tatic standing Rig ht Pulse Oximeter] Respiratory Rate 21 16 Blood Pressure Blood Pressure [Ri ght Upper Arm] Blood Pressure [or thostatic lying Le ft Arm] Blood Pressure [or thostatic sitting Left Arm] Blood Pressure [or thostatic standing Left Arm] Pulse Oximetry 97 Oxygen Delivery Me thod Documenting provider has reviewed patient's vital signs: yes Course Vital Signs Vital signs: Initial Vital Signs Temperature 97.5 F L 12/11/24 18:47 Temperature Source Temporal Artery Scan 12/11/24 18:47 Pulse Rate 80 12/11/24 18:47 Respiratory Rate 20 12/11/24 18:47 Blood Pressure 184/71 H 12/11/24 18:47 Blood Pressure Mean 108 H 12/11/24 18:47 Pulse Oximetry 97 12/11/24 18:47 Oxygen Delivery Method Room Air 12/11/24 18:47 Vital Signs Temperature 97.5 F L 12/11/24 18:47 Pulse Rate 80 12/11/24 18:47 Respiratory Rate 20 12/11/24 18:47 Blood Pressure 184/71 H 12/11/24 18:47 Pulse Oximetry 97 12/11/24 18:47 Oxygen Delivery Method Room Air 12/11/24 18:47 Temperature 97.5 F L 12/11/24 18:47 Pulse Rate 84 12/11/24 21:30 Respiratory Rate 16 12/11/24 21:30 Blood Pressure 202/92 H 12/11/24 21:02 Pulse Oximetry 97 12/11/24 21:30 Oxygen Delivery Method Room Air 12/11/24 18:47 Medications Administered Medications: Discontinued Medications Generic Name Dose Route Start Last Admin Trade Name Severo BAILEY Reason Stop Dose Admin Diazepam 5 mg 12/11/24 19:11 12/11/24 19:24 Diazepam 5 Mg/Ml Inj IV 12/11/24 19:12 5 mg ONCE ONE Administration Sodium Chloride 1,000 mls @ 1,000 mls/hr 12/11/24 19:11 12/11/24 21:00 0.9 % Sodium Chloride 1000 Ml IV 12/11/24 20:10 Infused .Q1H ONE Infusion Medical Decision Making MDM Narrative Medical decision making narrative: Constellation of symptoms. I suspect that this is combination of anxiety and alcohol abuse; likely more intake than noted. Will check labs though looking for evidence of electrolyte abnormalities. Look for potential pneumonia. Hypertensive related labs. Will begin IV fluids. 1 L of normal saline given. I did give a dose of diazepam. Diazepam did result in calming. Labs notable for sodium of 129 an alcohol level 0.04. Further conversation revealed lifelong history of anxiety. She notes how she used to take prescribed daily benzodiazepine and she did really well then. Has since been weaned from this. Now she has continued trouble sleeping. Sounds like also otherwise with poor nutrition. It is good to see supportive daughter here today. Does not have any regular primary care. Blood pressures remained elevated during time in emergency department. Otherwise appeared improved. We did discuss going to detox or even treatment. Does not sound as if she is quite ready for that. Would encourage close follow-up as outpatient. See patient discharge plan for further discussion Please make a follow-up appointment in primary care to establish regular visits. Do what you can to decrease or stop drinking alcohol. You might consider attending AA. Treating your underlying anxiety of course will help. Please discuss this in primary care follow-up. Do try to get in little exercise even just an amble, ideally outdoors, every day. You might need more treatment, even temporary, of your blood pressure. This might include medication like amlodipine as both your high and low numbers were recently high here in the emergency department. Please take your prescribed medications as prescribed, regularly. Maybe you need to set an alarm and/or have them in a pillbox. Medical Records Medical records reviewed: Yes I reviewed the patient's medical records Lab Data Labs: Lab Results 12/11/24 12/11/24 12/11/24 Range/Units 19:12 19:20 20:35 WBC 7.63 (4.50-11.00) K/uL RBC 4.36 (4.00-5.20) m/uL Hgb 14.6 (12.0-16.0) gm/dL Hct 40.8 (33.0-51.0) % MCV 94 (80-100) fL MCH 34 (26-34) pg MCHC 36 (32-36) gm/dL RDW Coeff of Ruthie 12.4 (11.5-15.5) % Plt Count 220 (140-440) K/uL Neut % (Auto) 79.0 H (42.0-72.0) % Lymph % (Auto) 13.0 L (20-44) % Mason % (Auto) 7.5 (0.0-11.0) % Eos % (Auto) 0.1 (0.0-7.0) % Baso % (Auto) 0.3 (0.0-3.0) % Neut # (Auto) 6.00 (1.7-7.0) K/uL Lymph # (Auto) 1.00 (0.90-2.90) K/uL Mason # (Auto) 0.60 (0.00-0.90) K/UL Eos # (Auto) 0.01 (0.00-0.50) K/uL Baso # (Auto) 0.02 (0.00-0.30) K/uL Abs Immat Gran (auto) 0.01 (0.00-0.30) K/uL Imm/Tot Granulo (auto) 0.1 % Sodium 129 L (135-149) mmol/L Potassium 4.3 (3.6-5.1) mmol/L Chloride 95 L (96-114) mmol/L Carbon Dioxide 17 L (20-32) mmol/L Anion Gap 17 H (7-15) mEq/L BUN 8 (7-30) mg/dL Creatinine 0.8 (0.5-1.5) mg/dL Estimated GFR 73 ml/min Glucose 112 (60-115) mg/dL Calcium 9.5 (8.4-10.6) mg/dL Total Bilirubin 0.7 (0.1-1.5) mg/dL Direct Bilirubin 0.3 (0.0-0.5) mg/dL AST 78 H (12-35) U/L ALT 46 H (4-35) U/L Alkaline Phosphatase 68 (40-150) U/L Troponin I < 0.01 (0.01-0.04) ng/mL NT-Pro-B Natriuret Pep 166 (See Note) pg/mL Total Protein 7.9 (6.0-8.3) g/dL Albumin 4.8 (3.3-5.0) g/dL Urine Color Yellow (Yellow) Urine Appearance Clear (Clear) Urine pH 5.5 (5.0-8.5) Ur Specific [place] 1.010 (1.000-1.030) Urine Protein Negative (Negative) Urine Glucose (UA) Negative (Negative) Urine Ketones 1+ A (Negative) Urine Blood Negative (Negative) Urine Nitrite Negative (Negative) Urine Bilirubin Negative (Negative) Urine Urobilinogen 0.2 (0.2-1.0) Ur Leukocyte Esterase Negative (Negative) Urine RBC 0-2 (0-2) Urine WBC 0-2 (0-5) Ur Squamous Epith Cells Few (None-Few) Urine Bacteria None (None) Urine Opiates Screen Negative (Negative) Ur Oxycodone Screen Negative (Negative) Urine Methadone Screen Negative (Negative) Ur Barbiturates Screen Negative (Negative) U Tricyclic Antidepress Negative (Negative) Ur Phencyclidine Scrn Negative (Negative) Ur Amphetamines Screen Negative (Negative) U Methamphetamines Scrn Negative (Negative) U Benzodiazepines Scrn Negative (Negative) Urine Cocaine Screen Negative (Negative) U Marijuana (THC) Screen Negative (Negative) Ur Drug Screen Comment See Note Ethyl Alcohol 0.04 H (0.01-0.03) % POC Troponin I 0.01 (0.01-0.04) ng/ml ECG Data Attestation: I personally reviewed and interpreted this ECG as follows: (normal sinus rhythm. rate of 74) Discharge Plan Discharge Clinical Impression: Hypertension, Alcohol abuse, Malnutrition Patient Disposition: Home w/ Parent or Adult Condition: Improved Additional Instructions: Please make a follow-up appointment in primary care to establish regular visits. Do what you can to decrease or stop drinking alcohol. You might consider attending AA. Treating your underlying anxiety of course will help. Please discuss this in primary care follow-up. Do try to get in little exercise even just an amble, ideally outdoors, every day. You might need more treatment, even temporary, of your blood pressure. This might include medication like amlodipine as both your high and low numbers were recently high here in the emergency department. Please take your prescribed medications as prescribed, regularly. Maybe you need to set an alarm and/or have them in a pillbox. Prescriptions: No Action clonazepam 1 mg tablet 1 mg PO BID PRN (Reason: anxiety) Qty: 60 0RF fluoxetine 20 mg capsule 20 mg PO QDAY Qty: 90 1RF Rx Instructions: total dose 60mg daily fluoxetine 40 mg capsule 40 mg PO QDAY Qty: 90 1RF Rx Instructions: total dose 60mg daily gabapentin 300 mg capsule 300 - 600 mg PO TID Qty: 360 1RF Rx Instructions: take 600mg in AM, 300mg in afternoon, 300mg at bedtime metformin 500 mg tablet extended release 24 hr 500 mg PO QDAY Qty: 90 3RF omeprazole 20 mg capsule,delayed release(DR/EC) 20 mg PO QDAY Qty: 90 1RF oxybutynin chloride 5 mg tablet 5 mg PO BID Qty: 180 1RF Follow Up/Referrals: Shubham Frankel MD [Staff Physician, Family Practice] Stand Alone Forms: Clinked Info Instructions
--- NOTE | 2024-12-11 19:11 | CRLHL7_ITS ---
For Patients: As a result of the Century Cures Act, medical imaging exams and procedure reports are released immediately into your electronic medical record. You may view this report before your referring provider. If you have questions, please contact your health care provider. INDICATION: Chest pain. TECHNIQUE: Chest 1 views. COMPARISON: None. FINDINGS: Cardiovascular and mediastinum: Heart size and vasculature are normal in caliber and appearance. Lungs and pleural spaces: Lungs are clear. No sign of infiltrate or mass. No sign of pleural effusion. No pneumothorax. Bones and soft tissues: Right breast implant. Chronic left rib deformities. No significant findings. IMPRESSION: No acute or significant findings. Dictated by Kam Melendez MD @ 12/11/2024 7:53:26 PM (Electronically Signed)
[2024-12-11] MEDS: 0.9 % SODIUM CHLORIDE 1000 ml 1,000 ML IV (19:24)
[2024-12-11] MEDS: diazePAM 5 MG/ML inj IV (19:24)
[2024-12-11 19:33] LABS: Basophils Absolute Auto 0.02 K/uL (0.00-0.30); Basophils Percent Auto 0.3 % (0.0-3.0); Eosinophils Absolute Auto 0.01 K/uL (0.00-0.50); Eosinophils Percent Auto 0.1 % (0.0-7.0); Hematocrit 40.8 % (33.0-51.0); Hemoglobin* 14.6 gm/dL (12.0-16.0); Immature Granulocytes Abs Auto 0.01 K/uL (0.00-0.30); Immature Granulocytes Pct Auto 0.1 %; Mean Corpuscular HGB Conc 36 gm/dL (32-36); Mean Corpuscular Hemoglobin 34 pg (26-34); Mean Corpuscular Volume 94 fL (80-100); Monocytes Percent Auto 7.5 % (0.0-11.0); Platelet Count* 220 K/uL (140-440); RDW Coefficient of Variation % 12.4 % (11.5-15.5); Red Blood Count 4.36 m/uL (4.00-5.20); Slide Review Reflex No; White Blood Count* 7.63 K/uL (4.50-11.00)
[2024-12-11 19:47] LABS: Albumin* 4.8 g/dL (3.3-5.0); Chloride* 95 mmol/L (96-114); Potassium* 4.3 mmol/L (3.6-5.1); Sodium* 129 mmol/L (135-149)
[2024-12-11 19:49] LABS: Blood Urea Nitrogen* 8 mg/dL (7-30); Creatinine* 0.8 mg/dL (0.5-1.5); Estimated Glomerular Filt Rate 73 ml/min
[2024-12-11 19:50] LABS: Alanine Aminotransferase* 46 U/L (4-35); Alkaline Phosphatase* 68 U/L (40-150); Anion Gap 17 mEq/L (7-15); Aspartate Amino Transferase* 78 U/L (12-35); Bilirubin Direct* 0.3 mg/dL (0.0-0.5); Bilirubin Total* 0.7 mg/dL (0.1-1.5); Calcium* 9.5 mg/dL (8.4-10.6); Carbon Dioxide* 17 mmol/L (20-32); Glucose* 112 mg/dL (60-115); Total Protein* 7.9 g/dL (6.0-8.3)
[2024-12-11 19:51] LABS: Ethanol* 0.04 % (0.01-0.03)
[2024-12-11 20:00] LABS: NT Pro B Type NatriureticPept* 166 pg/mL (See Note)
[2024-12-11 20:03] LABS: Troponin I* < 0.01 ng/mL (0.01-0.04)
[2024-12-11 20:43] LABS: Appearance Urine Clear (Clear); Bilirubin Urine Negative (Negative); Blood Urine Negative (Negative); Color Urine Yellow (Yellow); Glucose Urine Negative (Negative); Ketones Urine 1+ (Negative); Leukocyte Esterase Urine Negative (Negative); Nitrite Urine Negative (Negative); Protein Urine Negative (Negative); Urobilinogen Urine 0.2 (0.2-1.0); pH Urine 5.5 (5.0-8.5)
[2024-12-11 20:44] LABS: Troponin, Point-of-Care* 0.01 ng/ml (0.01-0.04)
[2024-12-11 20:48] LABS: RBC Urine 0-2 (0-2); Squamous Epithelial Cell Urine Few (None-Few); WBC Urine 0-2 (0-5)
[2024-12-11 20:49] LABS: Amphetamine Screen Urine Negative (Negative); Barbiturate Screen Urine Negative (Negative); Benzodiazepines Screen Urine Negative (Negative); Cannabinoid Screen Urine Negative (Negative); Cocaine Screen Urine Negative (Negative); Methadone Screen Urine Negative (Negative); Methamphetamines Screen Urine Negative (Negative); Opiate Screen Urine Negative (Negative); Oxycodone Screen Urine Negative (Negative); Phencyclidine Screen Urine Negative (Negative); Tricyclic Antidepressant Urine Negative (Negative)
== END 2024-12-11 22:01 | disposition home or self-care (01) ==
PROVIDERS: Emergency Provider Family Medicine; PCP Student in an Organized Health Care Education/Training Program
DX: I10 Essential (primary) hypertension (principal); F10.10 Alcohol abuse, uncomplicated; E46 Unspecified protein-calorie malnutrition; Z51.81 Encounter for therapeutic drug level monitoring
CPT/HCPCS: 36415; 71045; 80048; 80076; 80306; 81001; 82077; 83880; 84484; 85025; 93005; 96374; 99284; J3360; J7030

== ENCOUNTER 2024-12-24 03:53 | Outpatient (CLI) | payer MEDICARE, SELFPAY ==
--- OUTSIDE RECORDS SUMMARY | 2024-12-27 00:32 | XMS_ITS | Clinical Summary ---
Author Organization [employer] [facility] [employer] Address [address] [place] [id number] Care Team Providers Care Digital Marketing Intern Name Role Phone Franklin Espinoza MD Primary [...] Additional Information Patient taking differently:25 mg Oral DAILY,As needed, Reported on 12/12/2024 omeprazole (PRILOSEC) 20 mg Delayed-Release capsuleIndications :Chronic GERD,History of Moreno's esophagus Take 1 Capsule (20 mg) by mouth once daily before a meal. 90 Capsule 3 07/24/19 24 Active gabapentin 300 mg capsuleIndications :Peripheral polyneuropathy Take 1 Capsule (300 mg) by mouth once daily. 90 Capsule 3 10/05/19 25 Active FLUoxetine 40 mg capsuleIndications :Generalized anxiety disorder,Depressio [...] once daily. 60 Tablet 11/12/19 25 Active Additional Information Patient not taking.Reported on 12/12/2024 lisinopriL 5 mg tabletIndications: HTN (hypertension) Take 1 Tablet (5 mg) by mouth once daily. 45 Tablet 11/12/19 25 Active Active Problems Problem Noted Date Diagnosed Date HTN (hypertension) 12/12/2024 Stage 3a chronic kidney disease 11/11/2024 Alcohol [...] 2023. Known bilateral nodules. Last US through [facility] Overactive bladder 12/04/2022 History of breast cancer [...] Encounters Date Type Department Care Team Description 12/24/2024 1:00 PM CDT Ancillary Procedure [facility] [address] [place] [address] Arrived 12/12/2024 3:05 PM CDT Office Visit [facility] [address] [place] [address] Franklin Espinoza MD ER Follow up ([place], hypertension, 12/11/24); Concerns (Light headed, on and off for several weeks, no appetite, SOB, throat feels plugged) 12/12/2024 Travel 12/11/2024 Orders Only [facility] Scanner 1 scan: (1-Ord) [place], ABNORMAL ECG, 12/11/2024 12/11/2024 Orders Only [facility] Scanner 1 scan: (1-Ord) [facility], XR CHEST 1V PORTABLE, 12/11/2024 12/05/2024 Telephone [facility] [address] [place] [address] Franklin Espinoza MD Results 12/02/2024 2:00 PM CDT Ancillary Procedure [facility] [address] [place] [address] 12/02/2024 Travel 11/25/2024 Nurse Triage [facility] [address] [place] [address] Franklin Espinoza MD Dizziness 11/14/2024 Telephone [facility] [phone] Matthew Watts MD Lab (Test cancellation/) 11/14/2024 Telephone [facility] [address] [place] [address] Franklin Espinoza MD Results 11/11/2024 3:05 PM CDT Office Visit [facility] [address] [facility] [place] [address] Franklin Espinoza MD Establish Care 11/11/2024 10:00 AM CDT Office Visit [facility] [address] [place] [address] Matthew Watts MD Mental Health Intake 11/11/2024 Travel 11/03/2024 Telephone [facility] [address] [place] [address] Matthew Watts MD Pre-Visit Intake 10/03/2024 Refill [facility] [address] [place] [address] Saumya Dumont DO Refill Request (FLUoxetine (PROZAC) 20 mg tablet; gabapentin (NEURONTIN) 300 mg capsule) from Last 3 Months Immunizations Immunization Administration Dates Next Due COVID-19 vaccine (Moderna 100mcg/0.5mL) PF, MDV 10/25/2021 COVID-19 vaccine ([employer] 30mcg/0.3mL) 12YO+ BIVALENT PF, MDV 04/09/2022 COVID-19 vaccine ([employer] 30mcg/0.3mL) 12YO+ JULI-SUCROSE PF, MDV 05/15/2021,09/12/2020,08/20/2020 COVID-19 vaccine ([employer] 30mcg/0.3mL) PF, MDV 05/15/2021 Influenza Virus, [...] Given: Yes Alcohol Use Standard Drinks/Week Comments Yes 14 (1 standard drink = 0.6 oz [...] on file Legal 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 Gender Identity Not on file Sexual Orientation Not on file Obstetrics History Last Filed Vital Signs Vital Sign Reading Time Taken Comments Blood Pressure 125/64 12/12/2024 3:06 PM CDT Pulse 97 12/12/2024 3:06 PM CDT Temperature 36.8 C (98.3 F) 12/12/2024 3:06 PM CDT Respiratory Rate - - Oxygen Saturation 97% 12/12/2024 3:06 PM CDT Inhaled Oxygen Concentration - - Weight 86.3 kg (190 lb 4.8 oz) 12/12/2024 3:06 P M CDT Height 170.2 cm (5' 7) 11/11/2024 2:47 PM CDT Body Mass Index 29.81 11/11/2024 2:47 PM CDT Plan of Treatment Upcoming Encounters Date Type Department Care Team (Late st Contact Info) Description 01/13/2025 1:25 PM CDT Office Visit [facility] [address] [place] [address] Franklin Espinoza MD [address] [place] [address] 01/30/2025 2:00 PM CDT Office Visit [facility] [address] [place] [address] Matthew Watts MD [address] [place] [address] 02/27/2025 2:00 PM CDT Office Visit [facility] [address] [place] [address] Matthew Watts MD [address] [place] [address] 04/03/2025 2:00 PM CDT Office Visit [facility] [address] [place] [address] Matthew Watts MD [address] [place] [address] Health Maintenance Due Date Last Done Comments [...] Procedure Name Priority Date/Time Associated Diagnosis Comments ECHO TTE COMPLETE WO CONTRAST Routine 12/24/2024 2:44 PM CDT Murmur Preop examination SCAN-ELECTROCARDIOG ZAID EKG 12/11/2024 12:00 AM CDT SCAN-RADIOLOGY REPORT 12/11/2024 12:00 AM CDT XR KNEE WB 2 VIEWS BILATERAL AND 1 VIEW BILATERAL Routine 12/02/2024 2:01 PM CDT Chronic pain of both knees HEPATIC FUNCTION PANEL Routine 11/11/2024 4:32 PM CDT Alcohol use disorder XR DXA BONE DENSITY 2 SITES AXIAL Routine 07/27/2023 3:42 PM BEHAVIORAL HEALTH CASE MANAGER Postmenopausal Osteopenia of neck of left femur from Last 3 Months or Most Recently Relevant to Health Maintenance Results * ECHO TTE COMPLETE WO CONTRAST (12/24/2024 2:44 PM CDT) AORTIC VALVE MEAN PG 6 mmHg EJECTION FRACTION 80 % PEAK TR VELOCITY 3.3 m/s LVEDD 4.7 cm Anatomical Region Laterality Modality Ultrasound 12/24/2024 1:30 PM CDT Narrative 12/24/2024 7:35 PM CDT ECHOCARDIOGRAM VANESSA KEATING : 1940 84 years Study Date: 12/24/2024 1:30:00 PM Gender: F BP: 156/72 mmHg Height: 170.00 cm BSA: 1.96 m Weight: 84.00 kg Tech: SARA Referring MD: KEVIN RIBERA Site: [facility] Reading Location: [facility]- Patient Location: Inpatient. Procedure: 2D, Color Doppler and Spectral Doppler. Indication for study: Murmur; Preop examination Cardiac Rhythm: Regular.Study quality: Good. Imaging limitations: This study was subject to imaging limitations due to lying in a supine position. Final Impressions: 1. Normal left ventricular size, normal wall thickness, hyperdynamic global systolic function, calculated EF of 80 %. 2. Right ventricular cavity size is normal, global systolic RV function is normal. 3. The aortic valve is trileaflet and sclerotic, no stenosis and mild regurgitation. 4. Tricuspid valve is normal,at least mild-moderate tricuspid regurgitation, in some vues appears moderate. 5. Mildly increased estimated pulmonary pressures by tricuspid regurgitation velocity and right atrial pressure (44 mmHg plus RAP). 6. No pericardial effusion. Comparison There are no prior studies on this patient for comparison purposes. Chamber Sizes and Function Normal left ventricular size, normal wall thickness, hyperdynamic global systolic function, calculated EF of 80 %. Regional wall motion assessment not well- visualized. Left atrial size is normal. Left atrial pressure is normal. Right ventricular cavity size is normal, global systolic RV function is normal. RV wall thickness is normal. The right atrium is normal. Right atrial volume index is 11 ml/m . Right atrial area is 12 cm . The pulmonary artery is of normal size and origin. The sinus of Valsalva is normal sized. The ascending aorta is normal sized. Valves, RV Pressures and Diastolic Function The aortic valve is trileaflet and sclerotic, no stenosis and mild regurgitation. The mitral valve is normal in structure, trace mitral regurgitation. Mitral annular calcification is present. Normal diastolic function for age. The tricuspid valve is normal in structure, mild-moderate tricuspid regurgitation. The tricuspid regurgitant velocity is 3.3 m/s, the estimated right ventricular systolic pressure is 44 mmHg plus right atrial pressure. There is mildly increased estimated pulmonary pressure by tricuspid regurgitation velocity and right atrial pressure. The pulmonic valve is normal. Mild pulmonary regurgitation. Masses, Effusion, Shunts There is no pericardial effusion. The inferior vena cava is normal sized, respiratory size variation not well visualized. No left to right shunting was detected by limited color flow Doppler interrogation of the interatrial septum. MEASUREMENTS AND CALCULATIONS 2-D Measurements and LV Function: LVID (d) 4.7 cm Planimetered EF 80 % LVID (s) 2.4 cm LV FS% (2D) 50 % IVS (d) 1.0 cm LVOT diameter 2.0 cm LVPW (d) 0.9 cm HR 80 bpm Ao Sinus 3.3 cm LA Vol index 26 ml/m2 Ao Sinus ULN 3.8 cm * RA Vol index 11 ml/m2 Asc Ao 3.4 cm RA area 12 cm Asc Ao ULN 4.1 cm * RV Basal Diam 2.9 cm * Input BSA and age are outside of ranges, reported RV Mid Diam 2.2 cm values correspond to BSA = 1.9 and Age = 80 Diastology: Mitral Tissue Doppler E Peak 0.7 m/s e', Septum 0.06 m/s A Peak 1.1 m/s e', Lateral 0.07 m/s E/A 0.6 E/e' Average 9.87 DT 216 msec Aortic Valve: Vmax 1.6 m/s JAIDA (V) 1.80 cm VTI 0.35 m JAIDA (I) 1.59 cm LVOT V max 1.0 m/s Max PG 11 mmHg LVOT VTI 0.18 m Mean PG 6 mmHg SV 55 ml Dim Index 0.52 SV index 28 ml/m CO 4.4 l/min CI 2.3 l/min/m Mitral Valve: MVA 3.5 cm MV P 1/2 63 msec MV Mean G 2 mmHg MV VTI 0.22 m Tricuspid Valve and estimated PA pressures: TR Vmax 3.3 m/s TAPSE 3.3 cm TR maxG 44 mmHg Pulmonic Valve: PIEDV 1.0 m/s . This study was interpreted by an [facility] accredited facility. CC: [facility] (med records) [facility], Med/Surg - IP [facility]. Final Procedure Note Allyssa Haque MD - 12/24/2024 ECHOCARDIOGRAM VANESSA KEATING : 1940 84 years Study Date: 12/24/2024 1:30:00 PM Gender: F BP: 156/72 mmHg Height: 170.00 cm BSA: 1.96 m Weight: 84.00 kg Tech: SARA Referring MD: KEVIN RIBERA Site: [facility] Reading Location: [facility]- Patient Location: Inpatient. Procedure: 2D, Color Doppler and Spectral Doppler. Indication for study: Murmur; Preop examination Cardiac Rhythm: Regular.Study quality: Good. Imaging limitations: This study was subject to imaging limitations due tolying in a supine position. Final Impressions: 1. Normal left ventricular size, normal wall thickness, hyperdynamicglobal systolic function, calculated EF of 80 %. 2. Right ventricular cavity size is normal, global systolic RV functionis normal. 3. The aortic valve is trileaflet and sclerotic, no stenosis and mildregurgitation. 4. Tricuspid valve is normal,at least mild-moderate tricuspidregurgitation, in some vues appears moderate. 5. Mildly increased estimated pulmonary pressures by tricuspidregurgitation velocity and right atrial pressure (44 mmHg plus RAP). 6. No pericardial effusion. Comparison There are no prior studies on this patient for comparison purposes. Chamber Sizes and Function Normal left ventricular size, normal wall thickness, hyperdynamic globalsystolic function, calculated EF of 80 %. Regional wall motion assessmentnot well- visualized. Left atrial size is normal. Left atrial pressure isnormal. Right ventricular cavity size is normal, global systolic RVfunction is normal. RV wall thickness is normal. The right atrium isnormal. Right atrial volume index is 11 ml/m . Right atrial area is 12cm . The pulmonary artery is of normal size and origin. The sinus ofValsalva is normal sized. The ascending aorta is normal sized. Valves, RV Pressures and Diastolic Function The aortic valve is trileaflet and sclerotic, no stenosis and mildregurgitation. The mitral valve is normal in structure, trace mitralregurgitation. Mitral annular calcification is present. Normal diastolicfunction for age. The tricuspid valve is normal in structure,mild-moderate tricuspid regurgitation. The tricuspid regurgitant velocityis 3.3 m/s, the estimated right ventricular systolic pressure is 44 mmHgplus right atrial pressure. There is mildly increased estimated pulmonarypressure by tricuspid regurgitation velocity and right atrial pressure.The pulmonic valve is normal. Mild pulmonary regurgitation. Masses, Effusion, Shunts There is no pericardial effusion. The inferior vena cava is normal sized,respiratory size variation not well visualized. No left to right shuntingwas detected by limited color flow Doppler interrogation of theinteratrial septum. MEASUREMENTS AND CALCULATIONS 2-D Measurements and LV Function: LVID (d) 4.7 cm Planimetered EF 80% LVID (s) 2.4 cm LV FS% (2D) 50% IVS (d) 1.0 cm LVOT diameter2.0 cm LVPW (d) 0.9 cm HR 80bpm Ao Sinus 3.3 cm LA Vol index 26ml/m2 Ao Sinus ULN 3.8 cm * RA Vol index 11ml/m2 Asc Ao 3.4 cm RA area 12cm Asc Ao ULN 4.1 cm * RV Basal Diam2.9 cm * Input BSA and age are outside of ranges, reported RV Mid Diam2.2 cm values correspond to BSA = 1.9 and Age = 80 Diastology: Mitral Tissue Doppler E Peak 0.7 m/s e', Septum 0.06 m/s A Peak 1.1 m/s e', Lateral 0.07 m/s E/A 0.6 E/e' Average 9.87 DT 216 msec Aortic Valve: Vmax 1.6 m/s JAIDA (V) 1.80 cm VTI 0.35 m JAIDA (I) 1.59 cm LVOT V max 1.0 m/s Max PG 11 mmHg LVOT VTI 0.18 m Mean PG 6 mmHg SV 55 ml Dim Index 0.52 SV index 28 ml/m CO 4.4 l/min CI 2.3 l/min/m Mitral Valve: MVA 3.5 cm MV P 1/2 63 msec MV Mean G 2 mmHg MV VTI 0.22 m Tricuspid Valve and estimated PA pressures: TR Vmax 3.3 m/s TAPSE 3.3 cm TR maxG 44 mmHg Pulmonic Valve: PIEDV 1.0 m/s . This study was interpreted by an [facility] accredited facility. CC: [facility] (med [facility]) [facility] Med/Surg - IP [facility]. Final us Joseph Mitchell MD ECHO ORD Final Result * SCAN-RADIOLOGY REPORT (12/11/2024 12:00 AM CDT) Anatomical Region Laterality Modality Other us Scanner OTHER Final Result * SCAN-ELECTROCARDIOGRAM EKG (12/11/2024 12:00 AM CDT) us Scanner OTHER Final Result * XR KNEE WB 2 VIEWS BILATERAL [...] 4:32 PM CDT 11/11/2024 4:33 PM CDT Franklin Espinoza MD CHEMISTRY Final Result [facility] [address] [place] [address], [place] [phone] [facility] [address] [place] [address] * (ABNORMAL) XR DXA BONE DENSITY 2 SITES AXIAL [67616.1] (07/27/2023 3:42 PM BEHAVIORAL HEALTH CASE MANAGER) Anatomical Region Laterality Modality Spine, HIPS, HIPL, HIPR Other Impressions 08/04/2023 2:29 PM BEHAVIORAL HEALTH CASE MANAGER Osteopenia. RECOMMENDATIONS: The National Osteoporosis Foundation recommends [...] to assess therapeutic efficacy. Orly Hernandez PA-C [facility] 08/04/2023 Narrative 08/04/2023 2:29 PM BEHAVIORAL HEALTH CASE MANAGER For Patients: Results are automatically released to your [employer] account once available, in compliance with federal regulations. This means that you may see your results before your provider has had a chance to review them. Please allow 2-3 business days for your provider to comment on the results. XR DXA Bone Mineral Density (BMD) EXAM LOCATION: [facility] [address] [facility] [address] PATIENT NAME: Vanessa Keating DATE OF : 1940 EXAM DATE: 07/27/2023 [...] two scanners are made by the same pants cutter. PROCEDURE: Dual-energy x-ray absorptiometry performed with routine [...] Recently Relevant to Health Maintenance Insurance [phone] [facility] [place] [id number] [facility] Care Teams Digital Marketing Intern Relationship Specialty Start Date End Date [place] [address] [place] [address] PCP - General Family Practice 11/11/24
== END 2024-12-24 03:54 | disposition home or self-care (01) ==
LOC: AMB 12-26 10:41
PROVIDERS: PCP Student in an Organized Health Care Education/Training Program; Visit Provider Family Medicine
DX: S79.911A Unspecified injury of right hip, initial encounter (principal); W01.0XXA Fall on same level from slipping, tripping and stumbling without subsequent striking against object, initial encounter; Y92.039 Unspecified place in apartment as the place of occurrence of the external cause
CPT/HCPCS: A0425; A0427

== ENCOUNTER 2024-12-24 04:33 | Inpatient (IN) | payer MEDICARE, SELFPAY ==
[2024-12-24] VITALS (44 sets, daily range): BP systolic 147–188; BP diastolic 63–99; PULSE 72–91; RESP 14–20; TEMP 36.6–36.9; O2SAT 87–98; BMI 29.0
--- NOTE | 2024-12-24 05:07 | CRLHL7_ITS ---
For Patients: As a result of the Century Cures Act, medical imaging exams and procedure reports are released immediately into your electronic medical record. You may view this report before your referring provider. If you have questions, please contact your health care provider. Indication: Trauma, fall with pain. Technique: Pelvis and right hip 3 views. Comparison: None. Findings/Impression: Bones: Acute moderately angulated intertrochanteric fracture of the right femur. No other focal osseous abnormality. Joint spaces: Moderate bilateral hip joint arthritis. Soft tissues: Unremarkable. Dictated by Jaylan Roque MD @ 12/24/2024 6:57:54 AM (Electronically Signed)
--- NOTE | 2024-12-24 05:15 | ED_ITS ---
HPI - General Adult General Chief complaint: Hip Injury/Pain Stated complaint: hip pain Time Seen by Provider: 12/24/24 04:59 Source: patient Mode of arrival: ambulatory Limitations: no limitations History of Present Illness HPI narrative: 84-year-old female presents to the emergency department for evaluation of hip pain post fall. Patient fell at approximately 12:30 p.m. and had to crawl towards her phone, reaching this around 3:00 a.m.. She was able to call her daughter who came over and eventually called 911 with concern that the patient seemed to have injury from the fall, was unable to stand and bear weight. EMS noted right leg to be shortened and externally rotated. They administered Zofran and fentanyl and transported patient to ED. Patient reports that this was a mechanical-type fall. She went to stand to go to bed and tripped over her own feet. She has a history of neuropathy and admits that this does happen sometimes. Review of the records does show a history of frequent falls and pe ripheral neuropathy as well as a history of alcohol abuse but denies any alcohol acutely. She does have a prescription for gabapentin for neuropathy which does not use every night but did take tonight she also has a prescription for Klonopin her daughter reports which she did not take tonight but does use a few times per month. No fever or recent acute illness. No chest pain or shortness of breath today. She is not noticing any focal neurological changes besides the pain in the right hip since the fall. No head injury or loss of consciousness. No history of coronary artery disease or heart failure. Past medical history notable for diabetes but reports that she is no longer on medication for this since her A1c has been around 5 consistently. Prior history of peripheral neuropathy, prior asthma, a anxiety and frequent falls. Prior alcohol abuse. No Prior tobacco use. ROS is notable for the right hip pain only, otherwise denies times 12 systems today. Related Data Previous Rx's ?Medication ?Instructions ?Recorded clonazepam 1 mg tablet 1 mg PO BID PRN anxiety #60 tabs 09/10/22 fluoxetine 20 mg capsule 20 mg PO QDAY #90 caps 09/10 fluoxetine 40 mg capsule 40 mg PO QDAY #90 caps 09/10 gabapentin 300 mg capsule 300 - 600 mg (1 - 2 x 300 mg ) PO 09/10/22 TID #360 caps metformin 500 mg tablet,extended 500 mg PO QDAY #90 ta bs 09/10/22 release 24 hr omeprazole 20 mg capsule,delayed 20 mg PO QDAY #90 cap s 09/10/22 release oxybutynin chloride 5 mg tablet 5 mg PO BID #180 tabs 09/10/22 Allergies Allergy/AdvReac Type Severity Reaction Status Date / Time Sulfa (Sulfonamide Allergy Mild Itching Verified 12/24/24 04:39 Antibiotics) cholecalciferol (vitamin D3) Allergy Unknown Hives Verified 12/11/24 18:41 ergocalciferol (vitamin D2) Allergy Unknown Verified 12/11/24 18:41 [facility] Medical History History of breast cancer ?Z85.3 - Personal history of malignant neoplasm of breast (ICD-10) Surgical History History of carpal tunnel surgery of left wrist (2013) ?Z98.890 - Other specified postprocedural states (ICD-10) History of foot surgery (1979) ?Z98.890 - Other specified postprocedural states (ICD-10) History of phacoemulsification of cataract of both eyes with intraocular lens implantation (2007) ?Z98.41 - Cataract extraction status, right eye (ICD-10) ?Z98.42 - Cataract extraction status, left eye (ICD-10) ?Z96.1 - Presence of intraocular lens (ICD-10) H/O esophagogastroduodenoscopy (2010) ?Z98.890 - Other specified postprocedural states (ICD-10) H/O mastectomy (1986) ?Z90.10 - Acquired absence of unspecified breast and nipple (ICD-10) Hx of tonsillectomy (1945) ?Z90.89 - Acquired absence of other organs (ICD-10) Family History Mother Alzheimers disease Stroke Father Stroke Social History Smoking Status: Never smoker Do you use any of these nicotine containing products: None Second hand tobacco smoke exposure: No How often do you have a drink containing alcohol: never AUDIT-C Alcohol total score: 0 Non-prescribed substance use: denies use service: No Exam Const: Vital Signs, click to edit/add: Vital Signs - 24 hr 12/24/24 04:36 12/24/24 05:22 12/24/24 05:24 Temperature 98.0 F Pulse Rate 72 Pulse Rate [Pulse Oximeter] 76 Respiratory Rate 20 Blood Pressure Blood Pressure [Ri ght Upper Arm] 188/99 H Pulse Oximetry 98 98 98 Oxygen Delivery Me thod Room Air 12/24/24 05:50 12/24/24 06:00 12/24/24 06:01 Temperature Pulse Rate 74 91 86 Pulse Rate [Pulse Oximeter] Respiratory Rate 16 Blood Pressure 171/63 H Blood Pressure [Ri ght Upper Arm] Pulse Oximetry 95 94 92 Oxygen Delivery Me thod 12/24/24 06:13 12/24/24 06:15 12/24/24 06:16 Temperature Pulse Rate 79 81 82 Pulse Rate [Pulse Oximeter] Respiratory Rate Blood Pressure 172/87 H 169/82 H Blood Pressure [Ri ght Upper Arm] Pulse Oximetry 93 92 94 Oxygen Delivery Me thod Documenting provider has reviewed patient's vital signs: yes Common normals: no apparent distress General appearance: cooperative Other: Comfortable at rest but tenderness with movement of course. Right leg is notably externally rotated and shortened. No signs of intoxication, does seem to be a good historian. HENMT: Common normals: normocephalic, head/scalp atraumatic, oropharynx normal and dentition normal Head and scalp: normocephalic and atraumatic Mouth: oral and palatal mucosa normal Throat: posterior oropharynx normal Eye: Common normals: PERRL and EOMs intact bilaterally Pupil: PERRL Other: Eyes blink asymmetrically which she states is chronic for her. Neck & C-Spine: Common normals: full ROM and no lymphadenopathy General: normal visual inspection Cervical spine: cervical ROM normal Chest: Common normals: palpation of chest normal Resp: Common normals: normal respiratory effort, no use of accessory muscles and clear to auscultation bilaterally Effort & inspection: able to speak in complete sentences Auscultation: clear to auscultation bilaterally Cardio: Common normals: regular rate, regular rhythm, S1 normal heart sound, S2 normal heart sound and no murmurs Rate: regular rate Rhythm: regular rhythm Heart sounds: S1 normal and S2 normal GI: Common normals: Normal to inspection, nondistended, normoactive bowel sounds present, soft to palpation, non-tender, no hepatosplenomegaly and no masses Palpation: soft and no hepatosplenomegaly Extremity: Other: Normal dorsalis pedis pulses bilaterally. Both feet and ankles have normal range of motion, no swelling or deformity. Both knees with no swelling, deformity. No point bony tenderness. Left hip normal to palpation. Right hip with point tenderness to palpation all along the hip joint with swelling noted. Manipulation not attempted of right hip. Psych: Attitude: engaged Activity/motor behavior: appropriate eye contact Mood and affect: euthymic mood Insight: insight good Judgement: judgment good Skin: Common normals: no rashes or lesions noted General skin exam: no rashes or lesions noted Course Course ED Course: 84-year-old female with fall at home, no signs of sepsis, cardiac event, syncope or seizure leading to fall. Does seem mechanical, fall from standing height onto carpeted surface. Suspect right hip fracture. Patient still reporting pain even after the fentanyl given by EMS. Will give according mg Dilaudid, obtain EKG, place Coughlin catheter, typical preoperative labs including a troponin due to her age. Chest and right hip x-rays, heads up given to supervisor cook house for likely admission. Reevaluation(s) Time of Reevaluation #1: 06:05 Reevaluation #1: Plain film x-rays reviewed, clear right hip fracture noted. Labs showing patient is quite intoxicated, double legal limit. Counseled patient and her daughter regarding this. Daughter does not seem terribly surprised but clearly has had some experience with her mother's alcohol drinking. Daughter very reasonable with this conversation. Patient feigning such the prostate is about her alcohol level, somewhat humorous. Will place Coughlin. Nursing team letting me know that I will have bed available at 8:00 a.m.. Patient is too intoxicated to consent to surgery now, will have to be later today or even tomorrow but depending on surgical discretion. I will keep her NPO and bolus 500 mL of normal saline while we await ortho callback. Time of Reevaluation #2: 06:35 Reevaluation #2: Spoke with Orthopedics, planning for surgery tomorrow. Patient will need to sober up 1st prior to consenting for surgery. Chances are she quit drinking about 6 hours prior to the blood draw, it could take quite a while for her to sober up. She certainly would be at risk for alcohol withdrawal which may complicate her postoperative course. Will admit to the hospitalist team and await additional recommendations for surgical team. Based on the fact that this is a fall from standing height onto a carpeted surface and does not meet any criteria for high velocity or high risk neck injury, I do not recommend a C- spine imaging since she has no tenderness and is freely moving the neck and head in all directions. Hospitalist has accepted admission. Vital Signs Vital signs: Initial Vital Signs Temperature 98.0 F 12/24/24 04:36 Temperature Source Temporal Artery Scan 12/24/24 04:36 Pulse Rate 76 12/24/24 04:36 Respiratory Rate 20 12/24/24 04:36 Blood Pressure 188/99 H 12/24/24 04:36 Blood Pressure Mean 128 H 12/24/24 04:36 Blood Pressure Position Sitting 12/24/24 04:36 Pulse Oximetry 98 12/24/24 04:36 Oxygen Delivery Method Room Air 12/24/24 04:36 Vital Signs Temperature 98.0 F 12/24/24 04:36 Pulse Rate 76 12/24/24 04:36 Respiratory Rate 20 12/24/24 04:36 Blood Pressure 188/99 H 12/24/24 04:36 Pulse Oximetry 98 12/24/24 04:36 Oxygen Delivery Method Room Air 12/24/24 04:36 Temperature 98.0 F 12/24/24 04:36 Pulse Rate 82 12/24/24 06:16 Respiratory Rate 16 12/24/24 06:01 Blood Pressure 169/82 H 12/24/24 06:16 Pulse Oximetry 94 12/24/24 06:16 Oxygen Delivery Method Room Air 12/24/24 04:36 Medications Administered Medications: Generic Name Dose Route Start Last Admin Trade Name Freq PRN Reason Stop Dose Admin Sodium Chloride 1,000 mls @ 125 mls/hr 12/24/24 05:56 12/24/24 06:05 0.9 % Sodium Chloride 1000 Ml IV 125 mls/hr .Q8H JOSE Administration Discontinued Medications Generic Name Dose Route Start Last Admin Trade Name Freq PRN Reason Stop Dose Admin Hydromorphone HCl 0.25 mg 12/24/24 05:07 12/24/24 05:16 Hydromorphone 0.5 Mg/0.5 Ml Inj IVP 12/24/24 05:08 0.25 mg ONCE ONE Administration Sodium Chloride 500 mls @ 500 mls/hr 12/24/24 05:56 12/24/24 06:06 0.9 % Sodium Chloride 500 Ml IV 12/24/24 06:55 500 mls/hr .Q1H JOSE Administration Medical Decision Making Lab Data Lab results reviewed: Yes I reviewed the patient's lab results Lab results narrative: Troponins normal, alcohol intoxication noted. Mild leukocytosis of uncertain etiology. No anemia. Sodium low at 128, does appear to be near her baseline. Normal renal function. Labs: Lab Results 12/24/24 12/24/24 12/24/24 Range/Units 05:20 05:23 06:17 WBC 13.10 H (4.50-11.00) K/uL RBC 4.21 (4.00-5.20) m/uL Hgb 14.2 (12.0-16.0) gm/dL Hct 40.7 (33.0-51.0) % MCV 97 (80-100) fL MCH 34 (26-34) pg MCHC 35 (32-36) gm/dL RDW Coeff of Ruthie 12.6 (11.5-15.5) % Plt Count 211 (140-440) K/uL Neut % (Auto) 87.0 H (42.0-72.0) % Lymph % (Auto) 7.9 L (20-44) % [place] % (Auto) 4.4 (0.0-11.0) % Eos % (Auto) 0.1 (0.0-7.0) % Baso % (Auto) 0.2 (0.0-3.0) % Neut # (Auto) 11.40 H (1.7-7.0) K/uL Lymph # (Auto) 1.00 (0.90-2.90) K/uL [facility] # (Auto) 0.60 (0.00-0.90) K/UL Eos # (Auto) 0.00 (0.00-0.50) K/uL Baso # (Auto) 0.00 (0.00-0.30) K/uL Abs Immat Gran (auto) 0.10 (0.00-0.30) K/uL Imm/Tot Granulo (auto) 0.4 % Sodium 128 L (135-149) mmol/L Potassium 4.4 (3.6-5.1) mmol/L Chloride 94 L (96-114) mmol/L Carbon Dioxide 18 L (20-32) mmol/L Anion Gap 16 H (7-15) mEq/L BUN 18 (7-30) mg/dL Creatinine 1.0 (0.5-1.5) mg/dL Estimated Creat Clear 40.72 Estimated GFR 56 ml/min Glucose 170 H (60-115) mg/dL Calcium 9.6 (8.4-10.6) mg/dL Urine Color Yellow (Yellow) Urine Appearance Clear (Clear) Urine pH 5.5 (5.0-8.5) Ur Specific [place] 1.020 (1.000-1.030) Urine Protein 1+ A (Negative) Urine Glucose (UA) Negative (Negative) Urine Ketones Negative (Negative) Urine Blood Negative (Negative) Urine Nitrite Negative (Negative) Urine Bilirubin Negative (Negative) Urine Urobilinogen 0.2 (0.2-1.0) Ur Leukocyte Esterase Negative (Negative) Urine RBC 0-2 (0-2) Urine WBC 0-2 (0-5) Ur Squamous Epith Cells None (None-Few) Urine Bacteria None (None) Ethyl Alcohol 0.15 H (0.01-0.03) % POC Troponin I 0.02 (0.01-0.04) ng/ml Imaging Data Chest x-ray: Attestation: I have reviewed the pertinent imaging results. My impression: Rib fractures, pneumothorax, pleural effusion or cardiac enlargement Radiologist's impression: FINDINGS: Cardiovasculature and mediastinum: Heart size is normal. Unremarkable mediastinum. Lungs and pleural spaces: Lungs are clear. No sign of infiltrate or mass. No sign of pleural effusion. No pneumothorax. Bones and soft tissues: No significant findings. IMPRESSION: Negative chest. Dictated by Jaylan Roque MD @ 12/24/2024 6:56:40 AM Right hip x-ray: Attestation: I have reviewed the pertinent imaging results. My impression: Intertrochanteric fracture noted Radiologist's impression: Findings/Impression: Bones: Acute moderately angulated intertrochanteric fracture of the right femur. No other focal osseous abnormality. Joint spaces: Moderate bilateral hip joint arthritis. Soft tissues: Unremarkable. Dictated by Jaylan Roque MD @ 12/24/2024 6:57:54 AM (Electronic Signature) ECG Data Attestation: I personally reviewed and interpreted this ECG as follows: Prior ECG tracings: available for review Interpretation: Comparison EKG 12/12/2024. Patient currently in sinus rhythm with a rate of 76. Slightly prolonged MO interval, intervals otherwise normal. Normal axis. Since last EKG, T-waves have flattened the knee come somewhat inverted in the lateral leads but no obvious acute ischemic changes today. Discharge Plan Discharge Clinical Impression: Closed fracture of right hip, Acute alcohol intoxication Patient Disposition: Admitted As Inpatient
[2024-12-24] MEDS: HYDROmorphone 0.5 mg/0.5 ml inj 0.25 MG IVP (05:16)
--- NOTE | 2024-12-24 05:25 | CRLHL7_ITS ---
For Patients: As a result of the Century Cures Act, medical imaging exams and procedure reports are released immediately into your electronic medical record. You may view this report before your referring provider. If you have questions, please contact your health care provider. INDICATION: Cough. Preop examination. TECHNIQUE: Chest 1 views. COMPARISON: December 11, 2024. FINDINGS: Cardiovasculature and mediastinum: Heart size is normal. Unremarkable mediastinum. Lungs and pleural spaces: Lungs are clear. No sign of infiltrate or mass. No sign of pleural effusion. No pneumothorax. Bones and soft tissues: No significant findings. IMPRESSION: Negative chest. Dictated by Jaylan Roque MD @ 12/24/2024 6:56:40 AM (Electronically Signed)
[2024-12-24 05:26] LABS: Basophils Percent Auto 0.2 % (0.0-3.0); Eosinophils Percent Auto 0.1 % (0.0-7.0); Hematocrit* 40.7 % (33.0-51.0); Hemoglobin* 14.2 gm/dL (12.0-16.0); Immature Granulocytes Pct Auto 0.4 %; Lymphocytes Percent Auto 7.9 % (20-44); Mean Corpuscular HGB Conc 35 gm/dL (32-36); Mean Corpuscular Hemoglobin 34 pg (26-34); Mean Corpuscular Volume 97 fL (80-100); Monocytes Percent Auto 4.4 % (0.0-11.0); Platelet Count* 211 K/uL (140-440); RDW Coefficient of Variation % 12.6 % (11.5-15.5); Red Blood Count* 4.21 m/uL (4.00-5.20)
[2024-12-24 05:30] LABS: Slide Review Reflex No
[2024-12-24 05:33] LABS: Troponin, Point-of-Care* 0.02 ng/ml (0.01-0.04)
[2024-12-24 05:39] LABS: Chloride* 94 mmol/L (96-114); Potassium* 4.4 mmol/L (3.6-5.1); Sodium* 128 mmol/L (135-149)
[2024-12-24 05:42] LABS: Anion Gap 16 mEq/L (7-15); Blood Urea Nitrogen* 18 mg/dL (7-30); Calcium* 9.6 mg/dL (8.4-10.6); Carbon Dioxide* 18 mmol/L (20-32); Est. Creatinine Clearance* 40.72; Estimated Glomerular Filt Rate 56 ml/min; Glucose* 170 mg/dL (60-115)
[2024-12-24 05:43] LABS: Ethanol* 0.15 % (0.01-0.03)
[2024-12-24] MEDS: 0.9 % SODIUM CHLORIDE 1000 ml 1,000 ML 125 ML IV (06:05)
[2024-12-24] MEDS: 0.9 % SODIUM CHLORIDE 500 ML 500 ML IV (06:06)
[2024-12-24 06:20] LABS: Appearance Urine Clear (Clear); Bilirubin Urine Negative (Negative); Blood Urine Negative (Negative); Color Urine Yellow (Yellow); Glucose Urine Negative (Negative); Ketones Urine Negative (Negative); Leukocyte Esterase Urine Negative (Negative); Nitrite Urine Negative (Negative); Protein Urine 1+ (Negative); Urobilinogen Urine 0.2 (0.2-1.0); pH Urine 5.5 (5.0-8.5)
[2024-12-24 06:21] LABS: RBC Urine 0-2 (0-2); WBC Urine 0-2 (0-5)
[2024-12-24] MEDS: HYDROmorphone 0.5 mg/0.5 ml inj IVP ×4 (08:40→19:40)
--- NOTE | 2024-12-24 10:17 | PM.IMHP1 ---
Assessment and Plan Assessment and plan (1) Acute alcohol intoxication: Problem comment: - above the driving legal limit - this likely contributed to her fall last night - not able to consent for surgery at this time, recheck in the morning Status: Acute (2) Frequent falls: Problem comment: Acute on chronic. EtOH and neuropathy are factors. Status: Acute (3) Closed fracture of right hip: Problem comment: - orthopedics is aware. From a medical standpoint she will be clear for surgery by morning if her medical blood alcohol level is under the legal limit so that she may consent and if she does not start to go through severe alcohol withdrawal Status: Acute (4) Hypertension: Problem comment: Continue lisinopril Status: Chronic (5) Alcohol abuse: Problem comment: [facility] protocol Status: Chronic (6) Malnutrition: Problem comment: Protein calorie malnutrition, moderate, alcohol use likely contributing to this Will start nutritional supplements Status: Chronic (7) Diabetes mellitus, type II: Problem comment: Diet controlled. Hemoglobin A1c today is 5.6%. Monitor with the daily labs. Status: Chronic (8) Mitral regurgitation: Problem comment: - at 1st I could not find information about this and the patient was unaware of the murmur. I ordered an echocardiogram for this and her complaint of shortness of breath, which was done today. Preliminary results of echocardiogram are reassuring. No further workup prior to surgery. Status: Chronic (9) Dyspnea: Problem comment: I suspect this is likely secondary to alcohol use and deconditioning. Echocardiogram completed today, reassuring Status: Acute (10) Ascending aortic aneurysm: Problem comment: On preliminary echo this is 3.4 cm today Status: Acute Hospitalist- H&P: HPI History of Present Illness Time Seen by Provider: 09:58 Date Seen: 12/24/24 Chief complaint: hip pain Narrative: Vanessa Paris is a 84 year old female with a history of anxiety, alcoholism, hypertension, thyroid nodules, to different breast cancers, Moreno's esophagus, diet-controlled type 2 diabetes mellitus and osteopenia who presented through the emergency department today for inability to get up after a fall. She tells me that she must of had quite a bit to drink last night, but can not tell me how much. She got up to go to bed around midnight when she got her feet tangled under her and fell over. She was then unable to get up. After several hours she was able to crawl to the phone. She was found to have a right hip fracture for which Orthopedics was contacted and is hoping to do surgery tomorrow. Vanessa's medical blood alcohol level was also elevated this morning, so she was unable to consent for surgery. Megan tells me that she has been drinking for 66 years, at times more and at times less. She started drinking more heavily in May. She used to drink whiskey, but switched to wine at least 2-3 weeks ago. She is unable to tell me how much drinks currently or used to drink. It appears from reading the notes from [facility] that her previous primary care provider was trying to wean her off of clonazepam since she continued to drink alcohol, but she did not like that and switched providers. She tells me that she has been having intermittent dyspnea, she does not or know of anything that makes it better or worse and can not think of anything that causes it to happen. She is unaware of any heart murmurs. She wanted me to call her daughter who lives in town, so I called Rasheeda Tomas, [phone]. This went to a confidential voicemail, so I left a message asking her to give us a call. Review of Systems Status of ROS: Reports: 10 or more systems reviewed and unremarkable except as noted in History and below Medical Decision Making Medical Decision Making Code Status: DNR/DNI Has patient completed a Health Care Directive: Yes During This Stay, Who Would You Like To Make Decisions For You In The Event You Are Unable To Make Them For Yourself?: Daughter Relevant situational information: Medical blood alcohol level just a few hours ago was 0.15, but she is oriented to situation and able to tell me clearly which she would like and why with regards to code status. [facility] Medical History (Updated 12/24/24 @ 16:18 by Cara Freire MD) Alcohol abuse ?F10.10 - Alcohol abuse, uncomplicated (ICD-10) Frequent falls ?R29.6 - Repeated falls (ICD-10) Hypercholesterolemia ?E78.00 - Pure hypercholesterolemia, unspecified (ICD-10) Carpal tunnel syndrome, right ?G56.01 - Carpal tunnel syndrome, right upper limb (ICD-10) Dry eye syndrome ?H04.129 - Dry eye syndrome of unspecified lacrimal gland (ICD-10) Environmental allergies ?Z91.09 - Other allergy status, other than to drugs and biological substances (ICD-10) Urinary incontinence ?R32 - Unspecified urinary incontinence (ICD-10) Nontoxic multinodular goiter (2019) ?E04.2 - Nontoxic multinodular goiter (ICD-10) Nonproliferative diabetic retinopathy ?E11.3299 - Type 2 diabetes mellitus with mild nonproliferative diabetic retinopathy without macular edema, unspecified eye (ICD-10) Mitral regurgitation ?I34.0 - Nonrheumatic mitral (valve) insufficiency (ICD-10) Depression ?F32.A - Depression, unspecified (ICD-10) Asthma ?J45.909 - Unspecified asthma, uncomplicated (ICD-10) Anxiety ?F41.9 - Anxiety disorder, unspecified (ICD-10) OAB (overactive bladder) ?N32.81 - Overactive bladder (ICD-10) Peripheral neuropathy ?G62.9 - Polyneuropathy, unspecified (ICD-10) Osteoarthritis of knees, bilateral ?M17.0 - Bilateral primary osteoarthritis of knee (ICD-10) Barretts esophagus ?K22.70 - Moreno's esophagus without dysplasia (ICD-10) Hypertension ?I10 - Essential (primary) hypertension (ICD-10) Malnutrition ?E46 - Unspecified protein-calorie malnutrition (ICD-10) History of breast cancer ?Z85.3 - Personal history of malignant neoplasm of breast (ICD-10) Surgical History History of carpal tunnel surgery of left wrist (2013) ?Z98.890 - Other specified postprocedural states (ICD-10) History of foot surgery (1979) ?Z98.890 - Other specified postprocedural states (ICD-10) History of phacoemulsification of cataract of both eyes with intraocular lens implantation (2007) ?Z98.41 - Cataract extraction status, right eye (ICD-10) ?Z98.42 - Cataract extraction status, left eye (ICD-10) ?Z96.1 - Presence of intraocular lens (ICD-10) H/O esophagogastroduodenoscopy (2010) ?Z98.890 - Other specified postprocedural states (ICD-10) H/O mastectomy (1986) ?Z90.10 - Acquired absence of unspecified breast and nipple (ICD-10) Hx of tonsillectomy (1945) ?Z90.89 - Acquired absence of other organs (ICD-10) Family History Mother Alzheimers disease Stroke Father Stroke Social History (Updated 12/24/24 @ 16:05 by Cara Freire MD) Narrative: Lives independently. Denies tobacco use. + 66 years of alcohol use, unclear how much each day, 2-5 drinks or more, denies recreational drug use. What is your current living situation?: I presently have a place to live Problems where you live: no known problems Problems where you live details: na In the past 12 months, utilities in danger of being shut off: no In past 12 months, lack of transportation kept you from medical appts, meetings, work, or getting things needed for daily living: no In the past 12 mos, have been you worried that your food would run out before you had money to buy more?: never true In the past 12 mos, the food you bought just didn't last and you didn't have money to buy more?: never true Highest level of school completed/degree received: Master's degree Smoking Status: Never smoker Do you use any of these nicotine containing products: None Second hand tobacco smoke exposure: No How often do you have a drink containing alcohol: 4 or more times a week Alcohol type: wine Alcohol type details: 2-4 gLASSES a day How many standard drinks containing alcohol do you have on a typical day: 3 or 4 How often do you have six or more drinks on one occasion: Daily or almost daily AUDIT-C Alcohol total score: 9 Non-prescribed substance use: denies use Caffeine: No How often does anyone, including family, friends and others, physically hurt you: never How often does anyone, including family, friends and others, insult or talk down to you: never How often does anyone, including family, friends and others, threaten you with harm: never How often does anyone, including family, friends and others, scream or curse at you: never service: No Meds Home Medications and Allergies Home Medications ?Medication ?Instructions ?Recorded ?Confirmed ?Type clonazepam 0.5 mg tablet 0.25 - 0.5 mg PO DAILY PRN anxiety 12/24/24 12/24/24 History attack fluoxetine 20 mg capsule 60 mg PO DAILY 12/24/24 12/24/24 History gabapentin 300 mg capsule 300 mg PO DAILY PRN 12/24/24 12/24/24 History lisinopril 5 mg tablet 5 mg PO DAILY 12/24/24 12/24/24 History loperamide 2 mg capsule 2 mg PO Q6H PRN 12/24/24 12/24/24 History (Anti-Diarrheal (loperamide)) mirabegron 25 mg tablet,extended 25 mg PO DAILY PRN 12/24/24 12/24/24 History release 24 hr (Myrbetriq) omeprazole 20 mg capsule,delayed 20 mg PO DAILY PRN 12/24/24 12/24/24 History release sugar defender 12/24/24 History Allergies Allergy/AdvReac Type Severity Reaction Status Date / Time Sulfa (Sulfonamide Allergy Mild Itching Verified 12/24/24 04:39 Antibiotics) cholecalciferol (vitamin D3) Allergy Unknown Hives Verified 12/11/24 18:41 ergocalciferol (vitamin D2) Allergy Unknown Verified 12/11/24 18:41 Exam Narrative: Exam Narrative: General: No acute distress. Awake alert oriented x3. Some of her answers are a bit off, but generally she is able to answer well. HEENT: Normocephalic atraumatic, pupils equally round and reactive to light and accommodation. Oropharynx clear. Mucous membranes are moist. No cervical lymphadenopathy, thyromegaly or carotid bruits. No JVD. Cardiovascular: Regular rate and rhythm. Grade 2/6 systolic murmur loudest at the left lower sternal border. Chest: No increased work of breathing. Clear to auscultation bilaterally. No crackles or wheezes. Abdomen: Bowel sounds present. Soft, nondistended, nontender. No hepatosplenomegaly or masses. Extremities: Right lower extremity is shortened and externally rotated. No ecchymosis noted over the right hip. No edema of the lower extremities. There are some toe deformities bilaterally, few hammertoes on the left and the 2nd toe on the right is deviated upward and there is no movement of the joint. Skin: No jaundice, no pallor, no rashes. Neuro: Grossly intact. No focal deficits. Const: Vital Signs, click to edit/add: Vital Signs - 24 hr 12/24/24 04:36 12/24/24 05:22 12/24/24 05:24 Temperature 98.0 F Pulse Rate 72 Pulse Rate [Left R adial] Pulse Rate [Pulse Oximeter] 76 Respiratory Rate 20 Blood Pressure Blood Pressure [Ri ght Upper Arm] 188/99 H Pulse Oximetry 98 98 98 Oxygen Delivery Me thod Room Air Oxygen Flow Rate 12/24/24 05:50 12/24/24 06:00 12/24/24 06:01 Temperature Pulse Rate 74 91 86 Pulse Rate [Left R adial] Pulse Rate [Pulse Oximeter] Respiratory Rate 16 Blood Pressure 171/63 H Blood Pressure [Ri ght Upper Arm] Pulse Oximetry 95 94 92 Oxygen Delivery Me thod Oxygen Flow Rate 12/24/24 06:13 12/24/24 06:15 12/24/24 06:16 Temperature Pulse Rate 79 81 82 Pulse Rate [Left R adial] Pulse Rate [Pulse Oximeter] Respiratory Rate Blood Pressure 172/87 H 169/82 H Blood Pressure [Ri ght Upper Arm] Pulse Oximetry 93 92 94 Oxygen Delivery Me thod Oxygen Flow Rate 12/24/24 06:17 12/24/24 06:30 12/24/24 06:31 Temperature Pulse Rate 81 81 84 Pulse Rate [Left R adial] Pulse Rate [Pulse Oximeter] Respiratory Rate Blood Pressure 173/89 H Blood Pressure [Ri ght Upper Arm] Pulse Oximetry 95 95 95 Oxygen Delivery Me thod Oxygen Flow Rate 12/24/24 06:45 12/24/24 06:46 12/24/24 07:00 Temperature Pulse Rate 85 84 85 Pulse Rate [Left R adial] Pulse Rate [Pulse Oximeter] Respiratory Rate Blood Pressure 175/82 H Blood Pressure [Ri ght Upper Arm] Pulse Oximetry 91 90 87 L Oxygen Delivery Me thod Oxygen Flow Rate 12/24/24 07:01 12/24/24 07:15 12/24/24 07:16 Temperature Pulse Rate 89 86 88 Pulse Rate [Left R adial] Pulse Rate [Pulse Oximeter] Respiratory Rate Blood Pressure 165/80 H 157/78 H Blood Pressure [Ri ght Upper Arm] Pulse Oximetry 87 L 87 L 89 Oxygen Delivery Me thod Oxygen Flow Rate 12/24/24 07:30 12/24/24 07:31 12/24/24 07:37 Temperature Pulse Rate 80 79 Pulse Rate [Left R adial] Pulse Rate [Pulse Oximeter] Respiratory Rate Blood Pressure 162/77 H Blood Pressure [Ri ght Upper Arm] Pulse Oximetry 97 97 93 Oxygen Delivery Me thod Nasal Cannula Oxygen Flow Rate 2 12/24/24 07:45 12/24/24 07:46 12/24/24 08:00 Temperature Pulse Rate 85 87 86 Pulse Rate [Left R adial] Pulse Rate [Pulse Oximeter] Respiratory Rate Blood Pressure 158/78 H Blood Pressure [Ri ght Upper Arm] Pulse Oximetry 96 95 96 Oxygen Delivery Me thod Oxygen Flow Rate 12/24/24 08:01 12/24/24 08:15 12/24/24 08:16 Temperature Pulse Rate 87 85 86 Pulse Rate [Left R adial] Pulse Rate [Pulse Oximeter] Respiratory Rate Blood Pressure 166/83 H 163/79 H Blood Pressure [Ri ght Upper Arm] Pulse Oximetry 96 95 96 Oxygen Delivery Me thod Oxygen Flow Rate 12/24/24 08:30 12/24/24 08:31 12/24/24 09:06 Temperature 98.2 F Pulse Rate 86 85 Pulse Rate [Left R adial] 86 Pulse Rate [Pulse Oximeter] Respiratory Rate 14 Blood Pressure 168/80 H Blood Pressure [Ri ght Upper Arm] Pulse Oximetry 95 96 87 L Oxygen Delivery Me thod Room Air Oxygen Flow Rate 12/24/24 09:19 Temperature Pulse Rate Pulse Rate [Left R adial] Pulse Rate [Pulse Oximeter] Respiratory Rate Blood Pressure Blood Pressure [Ri ght Upper Arm] Pulse Oximetry 87 L Oxygen Delivery Me thod Room Air Oxygen Flow Rate Hospitalist - H&P: Result Labs Labs: Short CBC 12/24/24 Range/Units 05:23 WBC 13.10 H (4.50-11.00) K/uL Hgb 14.2 (12.0-16.0) gm/dL Hct 40.7 (33.0-51.0) % Plt Count 211 (140-440) K/uL BMP 12/24/24 05:23 Sodium 128 L Potassium 4.4 Chloride 94 L Carbon Dioxide 18 L BUN 18 Creatinine 1.0 Glucose 170 H Calcium 9.6 Urine 12/24/24 Range/Units 06:17 Urine Color Yellow (Yellow) Urine Appearance Clear (Clear) Urine pH 5.5 (5.0-8.5) Ur Specific [place] 1.020 (1.000-1.030) Urine Protein 1+ A (Negative) Urine Glucose (UA) Negative (Negative) Ordering Physician: Danitza Grimaldo M.D. Date of Service: 12/24/24 Procedure(s): XR chest 1V Accession Number(s): [id number] cc: Franklin Espinoza M.D.; Danitza Grimaldo M.D.~ For Patients: As a result of the Cures Act, medical imaging exams and procedure reports are released immediately into your electronic medical record. You may view this report before your referring provider. If you have questions, please contact your health care provider. INDICATION: Cough. Preop examination. TECHNIQUE: Chest 1 views. COMPARISON: December 11, 2024. FINDINGS: Cardiovasculature and mediastinum: Heart size is normal. Unremarkable mediastinum. Lungs and pleural spaces: Lungs are clear. No sign of infiltrate or mass. No sign of pleural effusion. No pneumothorax. Bones and soft tissues: No significant findings. IMPRESSION: Negative chest. Dictated by Jaylan Roque MD @ 12/24/2024 6:56:40 AM (Electronically Signed) Ordering Physician: Danitza Grimaldo M.D. Date of Service: 12/24/24 Procedure(s): XR hip RT min 2V Accession Number(s): [id number] cc: Franklin Espinoza M.D.; Danitza Grimaldo M.D.~ For Patients: As a result of the s Act, medical imaging exams and procedure reports are released immediately into your electronic medical record. You may view this report before your referring provider. If you have questions, please contact your health care provider. Indication: Trauma, fall with pain. Technique: Pelvis and right hip 3 views. Comparison: None. Findings/Impression: Bones: Acute moderately angulated intertrochanteric fracture of the right femur. No other focal osseous abnormality. Joint spaces: Moderate bilateral hip joint arthritis. Soft tissues: Unremarkable. Dictated by Jaylan Roque MD @ 12/24/2024 6:57:54 AM (Electronically Signed)
[2024-12-24 11:12] LABS: Amphetamine Screen Urine Negative (Negative); Barbiturate Screen Urine Negative (Negative); Benzodiazepines Screen Urine POSITIVE (Negative); Cannabinoid Screen Urine Negative (Negative); Cocaine Screen Urine Negative (Negative); Methadone Screen Urine Negative (Negative); Methamphetamines Screen Urine Negative (Negative); Opiate Screen Urine Negative (Negative); Oxycodone Screen Urine Negative (Negative); Phencyclidine Screen Urine Negative (Negative); Tricyclic Antidepressant Urine Negative (Negative)
[2024-12-24] MEDS: FOLIC ACID 1 MG TABLET PO (11:34)
[2024-12-24] MEDS: THIAMINE 100 MG TABLET 250 MG PO ×2 (11:34→20:47)
[2024-12-24] MEDS: MULTIVITAMIN/MINERALS 1 TABLET 1 TAB PO (11:34)
[2024-12-24] MEDS: ONDANSETRON ODT 4 MG TAB PO (11:35)
[2024-12-24 12:54] LABS: Hemoglobin A1C* 5.6 % (0-5.6)
[2024-12-24] MEDS: PHENobarbitaL 32.4 MG TABLET 129.6 MG PO (15:09)
[2024-12-24 17:28] LABS: Ethanol* < 0.01 % (0.01-0.03)
--- NOTE | 2024-12-24 18:13 | PC.NURSE ---
end of shift pt has been pleasant. she is alert x4. she has a fx right hip CIwa ordered, IV is patent,. she is on bed rest. she is getting IV pain meds. she was repositioned. she said no to scds, alarms are on. she is a fall risk.
[2024-12-24] MEDS: SODIUM CHLORIDE 0.9 % (FLUSH) 10 ML SYRINGE 5 ML IVF (19:40)
[2024-12-24] MEDS: LACTATED RINGERS 1000 ML 1,000 ML 75 ML IV (19:45)
[2024-12-25] VITALS (31 sets, daily range): BP systolic 90–176; BP diastolic 49–84; PULSE 75–105; RESP 14–18; TEMP 35.9–37.2; O2SAT 91–97
[2024-12-25] MEDS: HYDROmorphone 0.5 mg/0.5 ml inj IVP ×5 (02:06→19:52)
[2024-12-25] MEDS: SODIUM CHLORIDE 0.9 % (FLUSH) 10 ML SYRINGE 5 ML IVF (05:59)
--- NOTE | 2024-12-25 06:26 | PC.NURSE ---
End of shift note [id number]: Pt noted to be A&Ox4 and able to make needs known. Cough[place] cath in place due to hip fx. VSS- pt has been afebrile.?Pt on 1 LPM of oxygen via NC for most of shift as she was unable to maintain O2 sats per order after receiving PRN Dilaudid. PRN Dilaudid administered for 4-5/10 back/right hip pain which was effective upon followup. She has been declining ice packs when offered for pain control. Pt on bedrest d/t fx and has been NPO in prep for planned surgery today. SCDs worn to BLEs. CIWAs of 1. Tele in place with NSR noted. Bed alarm on for safety and call light within reach. ?
[2024-12-25 06:37] LABS: Basophils Absolute Auto 0.01 K/uL (0.00-0.30); Basophils Percent Auto 0.1 % (0.0-3.0); Eosinophils Absolute Auto 0.03 K/uL (0.00-0.50); Eosinophils Percent Auto 0.3 % (0.0-7.0); Hematocrit* 36.7 % (33.0-51.0); Hemoglobin* 12.5 gm/dL (12.0-16.0); Immature Granulocytes Abs Auto 0.02 K/uL (0.00-0.30); Immature Granulocytes Pct Auto 0.2 %; Lymphocytes Percent Auto 8.2 % (20-44); Mean Corpuscular HGB Conc 34 gm/dL (32-36); Mean Corpuscular Hemoglobin 33 pg (26-34); Mean Corpuscular Volume 98 fL (80-100); Monocytes Percent Auto 8.6 % (0.0-11.0); Neutrophils Percent Auto 82.6 % (42.0-72.0); Platelet Count* 152 K/uL (140-440); RDW Coefficient of Variation % 12.5 % (11.5-15.5); Red Blood Count* 3.75 m/uL (4.00-5.20)
[2024-12-25 06:45] LABS: Slide Review Reflex No
[2024-12-25 07:05] LABS: Albumin* 3.6 g/dL (3.3-5.0); Chloride* 94 mmol/L (96-114); Sodium* 126 mmol/L (135-149)
[2024-12-25 07:06] LABS: Potassium* 4.3 mmol/L (3.6-5.1)
[2024-12-25 07:08] LABS: Alanine Aminotransferase* 26 U/L (4-35); Alkaline Phosphatase* 57 U/L (40-150); Anion Gap 8 mEq/L (7-15); Aspartate Amino Transferase* 35 U/L (12-35); Bilirubin Total* 0.9 mg/dL (0.1-1.5); Blood Urea Nitrogen* 15 mg/dL (7-30); Calcium* 8.4 mg/dL (8.4-10.6); Carbon Dioxide* 24 mmol/L (20-32); Creatinine* 0.7 mg/dL (0.5-1.5); Est. Creatinine Clearance* 40.72; Estimated Glomerular Filt Rate 85 ml/min; Glucose* 136 mg/dL (60-115); Total Protein* 6.3 g/dL (6.0-8.3)
[2024-12-25 07:14] LABS: Ethanol* < 0.01 % (0.01-0.03)
[2024-12-25] MEDS: LACTATED RINGERS 1000 ML 1,000 ML 75 ML IV ×2 (09:10→19:15)
--- NOTE | 2024-12-25 11:00 | P.ORPRC_ITS ---
Procedure Note Date of procedure: 12/25/24 Procedure: PREOPERATIVE DIAGNOSIS: 1. Right intertrochanteric hip fracture, closed, displaced POSTOPERATIVE DIAGNOSES: 1. Right intertrochanteric hip fracture PROCEDURE: 1. Right intertrochanteric hip fracture reduction and fixation with cephalomedullary hip screw 2. 95139 - Intraoperative fluoroscopy up to 1 hour SURGEON: Delgado Ca MD DRAWING KILN OPERATOR: Oksana Jorge P.A.-C. An assistant plant controller was critical for this case to aid in patient positioning, leg manipulation, tissue retraction, instrument positioning, and wound closure. ANESTHESIA: Spinal IMPLANTS: Synthes short TFNA nail: 11 mm X 170 mm x 130 degrees]. Ninety-five mm leg screw. Single 5.0 mm distal interlocking screw EBL: 100 ml COMPLICATIONS: None evident INDICATIONS: Vanessa is an 84-year-old female who sustained a ground level fall yesterday morning which resulted in development of right hip pain and inability to bear weight. Patient was subsequently brought to the emergency department, where radiographic imaging revealed a right intertrochanteric hip fracture. Surgical stabilization of this fracture was recommended to allow for early mobilization and advancement of weight-bearing, decreased pain, and healing of the fracture. Prior to procedure, risks and benefits of the operative and non operative treatment were discussed with patient. After discussion of risks, benefits, and alternatives of surgery, informed consent was obtained and the operative hip was marked. FINDINGS: Displaced intertrochanteric fracture right hip PROCEDURE: After obtaining proper medical evaluation determining the patient was medically optimized for surgery, she was brought to the operating room and placed supine on the operating table. Induction of spinal anesthesia undertaken. 2 g IV Ancef was administered within 1 hr incision preoperatively. The patient was then positioned on the [place] table, and all bony prominences were well padded. Fluoroscopic imaging was utilized to obtain AP and lateral views of the hip and to confirm reduction of the fracture. The operative extremity was then prepped and draped in usual sterile fashion using ChloraPrep. A surgical time- out was performed confirming patient identity surgical site and surgical procedure. A longitudinal incision was made in line with the femur proximal to the greater trochanter. Incision was carried through subcutaneous tissues. Gluteal fascia was split in line with surgical incision. The tip of the greater trochanter was palpated and the guide pin was then placed into the medial tip of the greater trochanter and advanced into the proximal femur. Correct position of the guide pin was confirmed with fluoroscopy in both the AP and lateral planes. This was then overdrilled with the starting Reamer. The guide pin was then removed. A short TFNA nail was then placed into the intramedullary canal of the femur, however, we were unable to fully seat the nail secondary to tightness of the canal distally. Therefore, we proceeded to ream the proximal portion of the intramedullary canal to the depth of nail. A long ball-tipped guidewire was placed into the intramedullary canal, and the proximal canal was reamed sequentially from 10 mm to 12.5 mm. After reaming to 12.5 mm, the ball-tip guidewire was removed. The short TFNA nail was then placed into the medullary canal to the correct depth. Once correct depth was confirmed with fluoroscopic imaging, the triple trocar was then applied to the lateral femur, 10 blade incision through the skin and ITB band along the trocars to be opposed against the lateral cortex. This was confirmed fluoroscopically to be in appropriate position. The 3.2 mm guide pin was then placed and confirmed on AP and lateral views with the goal of center- center position in the subchondral bone of the femoral head. The guide pin measu red for a 95 lag screw. Guide pin was then overdrilled and a 95 lag screw was secured into position. Compression was then placed through the hip screw to further reduce the fracture. The proximal nail locking screw was tightened down to control screw rotation, and then backed off a 1/2 turn to allow for compression of the fracture. We then turned our attention to placement of the the distal interlock screw. The guide for the distal interlock screw was placed on the lateral cortex of the femur after making a small stab incision. The distal interlock hole was drilled with the 4.2 mm drill bit and filled with a distal interlock screw, which measured 38 mm. The guide was removed from the nail. Final fluoroscopic images of the proximal femur were obtained in AP and lateral planes confirming near anatomic reduction of the fracture and satisfactory placement of the nail and screws. At this stage, the wounds were thoroughly irrigated with normal saline. Wound closure was performed with 0 Vicryl for the deep gluteal fascia, and IT band. 2-0 Vicryl and 2-0 Stratafix were utilized for subcutaneous and subcuticular closure, respectively. After wound closure, sterile dressing were applied. The patient was then awoken from anesthesia and transferred to the PACU in stable condition. POSTOPERATIVE PLAN: 1. Patient will be readmitted to the hospitalist service for perioperative medical management. 2. Mobilize with physical therapy and occupational therapy. - Weight bear as tolerated right lower extremity. 3. Pain control: - Acetaminophen and Oxycodone for pain as needed. -IV pain medications for breakthrough pain -Ice for pain and swelling 4. Postoperative prophylactic antibiotics x2 doses 5. DVT prophylaxis: - Aspirin 81 mg b.i.d. for 35 days - SCDs bilateral lower extremities. 6. Follow-up with [facility] in 1-2 weeks for wound check. Follow-up with Dr. Ca in 6 weeks.
--- NOTE | 2024-12-25 11:27 | PM.ORCN ---
History of Present Illness HPI Date Seen: 12/25/24 Requesting physician: Cara Freire Chief complaint: hip pain Narrative: Vanessa is a 84 year old female with past medical history sigificant for anxiety, alcoholism, hypertension, thyroid nodules, breast cancer, Moreno's esophagus, diet-controlled type 2 diabetes mellitus and osteopenia who presented through the emergency department yesterday morning with right hip pain and inability to bear weight after sustaining a ground level fall. She denies any other injuries. Her blood alcohol level was elevated when she was 1st admitted, so surgery was delayed until today. She had no significant medical events overnight and this morning she states that her pain is adequately controlled. Prior to her injury, she lived independently. She used a walker for assistance with ambulation outside the home but did not use any assistive devices for ambulating within her home. [facility] Medical History (Updated 12/24/24 @ 16:18 by Cara Freire MD) Alcohol abuse ?F10.10 - Alcohol abuse, uncomplicated (ICD-10) Frequent falls ?R29.6 - Repeated falls (ICD-10) Hypercholesterolemia ?E78.00 - Pure hypercholesterolemia, unspecified (ICD-10) Carpal tunnel syndrome, right ?G56.01 - Carpal tunnel syndrome, right upper limb (ICD-10) Dry eye syndrome ?H04.129 - Dry eye syndrome of unspecified lacrimal gland (ICD-10) Environmental allergies ?Z91.09 - Other allergy status, other than to drugs and biological substances (ICD-10) Urinary incontinence ?R32 - Unspecified urinary incontinence (ICD-10) Nontoxic multinodular goiter (2020) ?E04.2 - Nontoxic multinodular goiter (ICD-10) Nonproliferative diabetic retinopathy ?E11.3299 - Type 2 diabetes mellitus with mild nonproliferative diabetic retinopathy without macular edema, unspecified eye (ICD-10) Mitral regurgitation ?I34.0 - Nonrheumatic mitral (valve) insufficiency (ICD-10) Depression ?F32.A - Depression, unspecified (ICD-10) Asthma ?J45.909 - Unspecified asthma, uncomplicated (ICD-10) Anxiety ?F41.9 - Anxiety disorder, unspecified (ICD-10) OAB (overactive bladder) ?N32.81 - Overactive bladder (ICD-10) Peripheral neuropathy ?G62.9 - Polyneuropathy, unspecified (ICD-10) Osteoarthritis of knees, bilateral ?M17.0 - Bilateral primary osteoarthritis of knee (ICD-10) Barretts esophagus ?K22.70 - Moreno's esophagus without dysplasia (ICD-10) Hypertension ?I10 - Essential (primary) hypertension (ICD-10) Malnutrition ?E46 - Unspecified protein-calorie malnutrition (ICD-10) History of breast cancer ?Z85.3 - Personal history of malignant neoplasm of breast (ICD-10) Surgical History History of carpal tunnel surgery of left wrist (2013) ?Z98.890 - Other specified postprocedural states (ICD-10) History of foot surgery (1979) ?Z98.890 - Other specified postprocedural states (ICD-10) History of phacoemulsification of cataract of both eyes with intraocular lens implantation (2007) ?Z98.41 - Cataract extraction status, right eye (ICD-10) ?Z98.42 - Cataract extraction status, left eye (ICD-10) ?Z96.1 - Presence of intraocular lens (ICD-10) H/O esophagogastroduodenoscopy (2010) ?Z98.890 - Other specified postprocedural states (ICD-10) H/O mastectomy (1986) ?Z90.10 - Acquired absence of unspecified breast and nipple (ICD-10) Hx of tonsillectomy (1945) ?Z90.89 - Acquired absence of other organs (ICD-10) Family History Mother Alzheimers disease Stroke Father Stroke Social History (Updated 12/24/24 @ 16:05 by Cara Freire MD) Narrative: Lives independently. Denies tobacco use. + 66 years of alcohol use, unclear how much each day, 2-5 drinks or more, denies recreational drug use. What is your current living situation?: I presently have a place to live Problems where you live: no known problems Problems where you live details: na In the past 12 months, utilities in danger of being shut off: no In past 12 months, lack of transportation kept you from medical appts, meetings, work, or getting things needed for daily living: no In the past 12 mos, have been you worried that your food would run out before you had money to buy more?: never true In the past 12 mos, the food you bought just didn't last and you didn't have money to buy more?: never true Highest level of school completed/degree received: Master's degree Smoking Status: Never smoker Do you use any of these nicotine containing products: None Second hand tobacco smoke exposure: No How often do you have a drink containing alcohol: 4 or more times a week Alcohol type: wine Alcohol type details: 2-4 gLASSES a day How many standard drinks containing alcohol do you have on a typical day: 3 or 4 How often do you have six or more drinks on one occasion: Daily or almost daily AUDIT-C Alcohol total score: 9 Non-prescribed substance use: denies use Caffeine: No How often does anyone, including family, friends and others, physically hurt you: never How often does anyone, including family, friends and others, insult or talk down to you: never How often does anyone, including family, friends and others, threaten you with harm: never How often does anyone, including family, friends and others, scream or curse at you: never service: No Meds Home Medications and Allergies Home Medications ?Medication ?Instructions ?Recorded ?Confirmed ?Type clonazepam 0.5 mg tablet 0.25 - 0.5 mg PO DAILY PRN anxiety 12/24/24 12/24/24 History attack fluoxetine 20 mg capsule 60 mg PO DAILY 12/24/24 12/24/24 History gabapentin 300 mg capsule 300 mg PO DAILY PRN 12/24/24 12/24/24 History lisinopril 5 mg tablet 5 mg PO DAILY 12/24/24 12/24/24 History loperamide 2 mg capsule 2 mg PO Q6H PRN 12/24/24 12/24/24 History (Anti-Diarrheal (loperamide)) mirabegron 25 mg tablet,extended 25 mg PO DAILY PRN 12/24/24 12/24/24 History release 24 hr (Myrbetriq) omeprazole 20 mg capsule,delayed 20 mg PO DAILY PRN 12/24/24 12/24/24 History release sugar defender 12/24/24 History Allergies Allergy/AdvReac Type Severity Reaction Status Date / Time Sulfa (Sulfonamide Allergy Mild Itching Verified 12/24/24 04:39 Antibiotics) cholecalciferol (vitamin D3) Allergy Unknown Hives Verified 12/11/24 18:41 ergocalciferol (vitamin D2) Allergy Unknown Verified 12/11/24 18:41 Ortho Exam Narrative Exam Narrative: General: Alert and oriented in no apparent distress. Musculoskeletal: Right lower extremity was noted to be shortened and externally rotated. Unable to move hip secondary to pain. Sensation was intact to light touch 1000 dorsal plantar aspects of the foot. EHL, tibialis anterior, gastrocnemius/soleus were intact. Foot was warm well perfused with 2+ DP and PT pulses. Const Vital Signs, click to edit/add: Vital Signs - 24 hr 12/24/24 11:42 12/24/24 15:00 12/24/24 15:15 Temperature 98.4 F 97.8 F Pulse Rate 79 Pulse Rate [Left Radial] 84 90 Respiratory Rate 14 18 Blood Pressure [Left Arm] 156/72 H 175/82 H Pulse Oximetry 95 94 Oxygen Delivery Method Nasal Cannula Nasal Cannula Oxygen Flow Rate 1 1 12/24/24 15:15 12/24/24 19:30 12/24/24 19:31 Temperature 98.1 F Pulse Rate Pulse Rate [Left Radial] 90 86 Respiratory Rate 18 18 Blood Pressure [Left Arm] 161/80 H Pulse Oximetry 93 93 Oxygen Delivery Method Nasal Cannula Oxygen Flow Rate 1 12/24/24 19:40 12/24/24 22:31 12/24/24 22:32 Temperature 98.1 F Pulse Rate 83 Pulse Rate [Left Radial] 86 Respiratory Rate 18 16 Blood Pressure [Left Arm] 161/80 H Pulse Oximetry 93 96 Oxygen Delivery Method Nasal Cannula Nasal Cannula Oxygen Flow Rate 1 1 12/24/24 22:33 12/24/24 22:49 12/24/24 23:00 Temperature 98.3 F 98.3 F Pulse Rate Pulse Rate [Left Radial] 86 86 86 Respiratory Rate 16 16 16 Blood Pressure [Left Arm] 147/63 H 147/63 H Pulse Oximetry 96 96 Oxygen Delivery Method Nasal Cannula Nasal Cannula Oxygen Flow Rate 1 1 12/25/24 02:40 12/25/24 03:00 12/25/24 03:00 Temperature 98.5 F 98.5 F Pulse Rate Pulse Rate [Left Radial] 88 88 Respiratory Rate 16 16 Blood Pressure [Left Arm] 161/78 H 161/78 H Pulse Oximetry 93 93 93 Oxygen Delivery Method Nasal Cannula Nasal Cannula Oxygen Flow Rate 1 1 12/25/24 07:07 12/25/24 08:03 12/25/24 08:03 Temperature 98.7 F Pulse Rate 91 Pulse Rate [Left Radial] 105 H Respiratory Rate 16 16 Blood Pressure [Left Arm] 176/84 H Pulse Oximetry 95 95 Oxygen Delivery Method Nasal Cannula Nasal Cannula Oxygen Flow Rate 1 1 12/25/24 08:05 12/25/24 11:00 12/25/24 11:00 Temperature 98.8 F Pulse Rate Pulse Rate [Left Radial] 105 H 98 Respiratory Rate 16 18 Blood Pressure [Left Arm] 165/75 H Pulse Oximetry 94 94 Oxygen Delivery Method Nasal Cannula Oxygen Flow Rate 1 Results Labs Labs: Laboratory Results - last 48 hr 12/24/24 12/24/24 12/24/24 05:20 05:23 06:17 WBC 13.10 H RBC 4.21 Hgb 14.2 Hct 40.7 MCV 97 MCH 34 MCHC 35 RDW Coeff of Ruthie 12.6 Plt Count 211 Neut % (Auto) 87.0 H Lymph % (Auto) 7.9 L [place] % (Auto) 4.4 Eos % (Auto) 0.1 Baso % (Auto) 0.2 Neut # (Auto) 11.40 H Lymph # (Auto) 1.00 [place] # (Auto) 0.60 Eos # (Auto) 0.00 Baso # (Auto) 0.00 Abs Immat Gran (auto) 0.10 Imm/Tot Granulo (auto) 0.4 Sodium 128 L Potassium 4.4 Chloride 94 L Carbon Dioxide 18 L Anion Gap 16 H BUN 18 Creatinine 1.0 Estimated Creat Clear 40.72 Estimated GFR 56 Glucose 170 H Hemoglobin A1c 5.6 Calcium 9.6 Total Bilirubin AST ALT Alkaline Phosphatase Total Protein Albumin Urine Color Yellow Urine Appearance Clear Urine pH 5.5 Ur Specific [place] 1.020 Urine Protein 1+ A Urine Glucose (UA) Negative Urine Ketones Negative Urine Blood Negative Urine Nitrite Negative Urine Bilirubin Negative Urine Urobilinogen 0.2 Ur Leukocyte Esterase Negative Urine RBC 0-2 Urine WBC 0-2 Ur Squamous Epith Cells None Urine Bacteria None Urine Opiates Screen Negative Ur Oxycodone Screen Negative Urine Methadone Screen Negative Ur Barbiturates Screen Negative U Tricyclic Antidepress Negative Ur Phencyclidine Scrn Negative Ur Amphetamines Screen Negative U Methamphetamines Scrn Negative U Benzodiazepines Scrn POSITIVE A Urine Cocaine Screen Negative U Marijuana (THC) Screen Negative Ur Drug Screen Comment See Note Ethyl Alcohol 0.15 H Lab Acknowledgement POC Troponin I 0.02 12/24/24 12/24/24 12/25/24 10:37 16:34 06:04 WBC 9.00 RBC 3.75 L Hgb 12.5 Hct 36.7 MCV 98 MCH 33 MCHC 34 RDW Coeff of Ruthie 12.5 Plt Count 152 Neut % (Auto) 82.6 H Lymph % (Auto) 8.2 L [place] % (Auto) 8.6 Eos % (Auto) 0.3 Baso % (Auto) 0.1 Neut # (Auto) 7.40 H Lymph # (Auto) 0.70 L [place] # (Auto) 0.80 Eos # (Auto) 0.03 Baso # (Auto) 0.01 Abs Immat Gran (auto) 0.02 Imm/Tot Granulo (auto) 0.2 Sodium 126 L Potassium 4.3 Chloride 94 L Carbon Dioxide 24 Anion Gap 8 BUN 15 Creatinine 0.7 Estimated Creat Clear 40.72 Estimated GFR 85 Glucose 136 H Hemoglobin A1c Calcium 8.4 Total Bilirubin 0.9 AST 35 ALT 26 Alkaline Phosphatase 57 Total Protein 6.3 Albumin 3.6 Urine Color Urine Appearance Urine pH Ur Specific [place] Urine Protein Urine Glucose (UA) Urine Ketones Urine Blood Urine Nitrite Urine Bilirubin Urine Urobilinogen Ur Leukocyte Esterase Urine RBC Urine WBC Ur Squamous Epith Cells Urine Bacteria Urine Opiates Screen Ur Oxycodone Screen Urine Methadone Screen Ur Barbiturates Screen U Tricyclic Antidepress Ur Phencyclidine Scrn Ur Amphetamines Screen U Methamphetamines Scrn U Benzodiazepines Scrn Urine Cocaine Screen U Marijuana (THC) Screen Ur Drug Screen Comment Ethyl Alcohol < 0.01 < 0.01 Lab Acknowledgement Test Added POC Troponin I Diagnostic results Additional Comments: X-rays of right hip and pelvis performed 12/24/2024 were reviewed. These demonstrated a displaced intertrochanteric right hip fracture. Moderate degenerative changes of both hips. Assessment and Plan Assessment and plan (1) Acute alcohol intoxication: Problem comment: - above the driving legal limit - this likely contributed to her fall last night - not able to consent for surgery at this time, recheck in the morning Status: Acute Total time spent: Total time spent is greater than 50% in coordination of care (as documented) at patient's floor/unit and/or counseling patient: (2) Frequent falls: Problem comment: Acute on chronic. EtOH and neuropathy are factors. Status: Acute Total time spent: Total time spent is greater than 50% in coordination of care (as documented) at patient's floor/unit and/or counseling patient: (3) Closed fracture of right hip: Problem comment: - orthopedics is aware. From a medical standpoint she will be clear for surgery by morning if her medical blood alcohol level is under the legal limit so that she may consent and if she does not start to go through severe alcohol withdrawal Status: Acute Total time spent: Total time spent is greater than 50% in coordination of care (as documented) at patient's floor/unit and/or counseling patient: (4) Hypertension: Problem comment: Continue lisinopril Status: Chronic Total time spent: Total time spent is greater than 50% in coordination of care (as documented) at patient's floor/unit and/or counseling patient: (5) Alcohol abuse: Problem comment: [facility] protocol Status: Chronic Total time spent: Total time spent is greater than 50% in coordination of care (as documented) at patient's floor/unit and/or counseling patient: (6) Malnutrition: Problem comment: Protein calorie malnutrition, moderate, alcohol use likely contributing to this Will start nutritional supplements Status: Chronic Total time spent: Total time spent is greater than 50% in coordination of care (as documented) at patient's floor/unit and/or counseling patient: (7) Diabetes mellitus, type II: Problem comment: Diet controlled. Hemoglobin A1c today is 5.6%. Monitor with the daily labs. Status: Chronic Total time spent: Total time spent is greater than 50% in coordination of care (as documented) at patient's floor/unit and/or counseling patient: (8) Mitral regurgitation: Problem comment: - at 1st I could not find information about this and the patient was unaware of the murmur. I ordered an echocardiogram for this and her complaint of shortness of breath, which was done today. Preliminary results of echocardiogram are reassuring. No further workup prior to surgery. Status: Chronic Total time spent: Total time spent is greater than 50% in coordination of care (as documented) at patient's floor/unit and/or counseling patient: (9) Dyspnea: Problem comment: I suspect this is likely secondary to alcohol use and deconditioning. Echocardiogram completed today, reassuring Status: Acute Total time spent: Total time spent is greater than 50% in coordination of care (as documented) at patient's floor/unit and/or counseling patient: (10) Ascending aortic aneurysm: Problem comment: On preliminary echo this is 3.4 cm today Status: Acute Total time spent: Total time spent is greater than 50% in coordination of care (as documented) at patient's floor/unit and/or counseling patient: Plan Patient has a displaced intertrochanteric fracture of the right hip. Risks and benefits of operative treatment and alternatives to surgery were discussed with patient today. Recommendation was subsequently made for surgical intervention consisting of right hip closed reduction internal fixation with a cephalomedullary hip screw to allow for early mobilization and advancement of weight-bearing, decreased pain, and healing of the fracture. Risks of surgery to include, but not limited to, infection, neurovascular injury, malunion, nonunion, hip avascular necrosis, deep vein thrombosis, pulmonary embolism, heart attack, stroke, and even were discussed with patient. All of her questions were answered. After discussion, she was in agreement with plan to proceed with surgery. Patient has been admitted to the hospitalist for perioperative medical management. She has been medically optimized and cleared for the planned surgical procedure . She is to remain on bedrest with plan for surgery this morning. She has been NPO since midnight for anticipated surgery.
--- NOTE | 2024-12-25 11:30 | CRLHL7_ITS ---
For Patients: As a result of the Cures Act, medical imaging exams and procedure reports are released immediately into your electronic medical record. You may view this report before your referring provider. If you have questions, please contact your health care provider. Indication: ORIF right hip Technique: Two fluoroscopic views right hip. Fluoroscopic time 1 minute 17.6 seconds. IMPRESSION: Fluoroscopic guidance for open reduction internal fixation of right proximal femoral fracture. Dictated by Tan Hay MD @ 12/26/2024 8:48:43 AM (Electronically Signed)
[2024-12-25] MEDS: CEFAZOLIN 1 GM inj IVP (12:05)
[2024-12-25] MEDS: BUPIVACAINE 0.5 %/EPI 1:200K 30 ML INJECTION (12:44)
--- NOTE | 2024-12-25 12:49 | P.NB_ITS ---
Nerve Block Nerve Block Time Seen by Provider: 12:00 Date Seen: 12/25/24 Type of block requested by surgeon for post-operative analgesia: ADI/LFCN Side: right Time out performed: Yes Verification of patient name: Yes Verification of date of : Yes Site marking: site marked Name of person performing procedure: mantyl Continuous monitoring Was continuous monitoring of O2 sat, B/P, conveyor monitor, recorded every 15 minutes?: Yes Procedure Checklist: sterile prep, needles and gloves Ultrasound guided. Images saved: Yes Medications given in 5ml increments after negative aspiration: Ropivicaine %: 0.5 mL: 30 Precedex (mcg): 20 Patient tolerated procedure well: Yes Block Charges Block Charge (with Pro Fee): Other Periph Nerve Block Use of Ultrasound Machine for Block: Yes- US Guidance/pain block
--- NOTE | 2024-12-25 14:46 | P.ANES_ITS ---
Anesthesia Charges Start Date/Time Anesthesia Start Date: 12/25/24 Anesthesia Start Time: 11:55 Stop Date/Time Anesthesia Stop Date: 12/25/24 Anesthesia Stop Time: 14:45 Summary Emergency: BRUSH MAKER Coding CPT Codes CPT Codes: ANESTH HIP JOINT SURGERY - 44524 ([id number]) P3 - PATIENT W/SEVERE SYS DISEASE, QZ - BRUSH MAKER SVC W/O AIRCRAFT SYSTEMS REPAIRER BY Additional Codes: Summary - Emergency: BRUSH MAKER ([id number])
--- NOTE | 2024-12-25 14:46 | W.ANESCHARGE ---
Anesthesia Charges Start Date/Time Anesthesia Start Date: 12/25/24 Anesthesia Start Time: 11:55 Stop Date/Time Anesthesia Stop Date: 12/25/24 Anesthesia Stop Time: 14:45 Summary Emergency: CARE ASSISTANT Coding CPT Codes CPT Codes: ANESTH HIP JOINT SURGERY - 60350 ([id number]) P3 - PATIENT W/SEVERE SYS DISEASE, QZ - CARE ASSISTANT SVC W/O PROCUREMENT SPECIALIST BY Additional Codes: Summary - Emergency: CARE ASSISTANT ([id number])
[2024-12-25] MEDS: LACTATED RINGERS 1000 ML 1,000 ML 100 ML IV (15:05)
--- NOTE | 2024-12-25 17:16 | PM.IMPN1 ---
Assessment and Plan Assessment and plan (1) Acute alcohol intoxication: Problem comment: - above the driving legal limit - this likely contributed to her fall last night - not able to consent for surgery at this time, recheck in the morning - 12/25 medical blood alcohol level this morning is nondetectable, resolved Status: Acute (2) Frequent falls: Problem comment: Acute on chronic. EtOH and neuropathy are factors. Status: Acute (3) Closed fracture of right hip: Problem comment: - orthopedics is aware. Surgery planned for today. Medically is no further workup needed before planned surgery. Status: Acute (4) Hypertension: Problem comment: Continue lisinopril Status: Chronic (5) Alcohol abuse: Problem comment: CIWA protocol, got dose of phenobarb yesterday, scores are low, 1-2 Status: Chronic (6) Malnutrition: Problem comment: Protein calorie malnutrition, moderate, alcohol use likely contributing to this Will start nutritional supplements Status: Chronic (7) Diabetes mellitus, type II: Problem comment: Diet controlled. Hemoglobin A1c today is 5.6%. Monitor with the daily labs. Status: Chronic (8) Mitral regurgitation: Problem comment: - at 1st I could not find information about this and the patient was unaware of the murmur. I ordered an echocardiogram for this and her complaint of shortness of breath, which was done today. Preliminary results of echocardiogram are reassuring. No further workup prior to surgery. Status: Chronic (9) Dyspnea: Problem comment: I suspect this is likely secondary to alcohol use and deconditioning. Echocardiogram completed 12/24, reassuring Status: Acute (10) Ascending aortic aneurysm: Problem comment: On preliminary echo this is 3.4 cm 12/24/24 Status: Acute Subjective Time Seen by Provider: 08:07 Date Seen: 12/25/24 Interval history: Vanessa had no complaints this morning. CIWA scores were low, 1-2 overnight. Exam Narrative: Exam Narrative: General: No acute distress. Awake, alert, oriented. No pallor. No jaundice. Oropharynx: Clear. Mucous membranes moist. Cardiovascular: Regular rate and rhythm. Grade 2/6 systolic murmur, unchanged. Respiratory: Clear to auscultation bilaterally. No wheezes or crackles. Abdomen: Bowel sounds present. Soft, nondistended, nontender. Extremities: Right lower extremity remains shortened and externally rotated, no ecchymosis over the hip. No lower extremity edema. Const: Vital Signs, click to edit/add: Vital Signs - 24 hr 12/24/24 19:30 12/24/24 19:31 12/24/24 19:40 Temperature 98.1 F 98.1 F Pulse Rate Pulse Rate [Left R adial] 86 86 Respiratory Rate 18 18 Blood Pressure Blood Pressure [Le ft Arm] 161/80 H 161/80 H Pulse Oximetry 93 93 93 Oxygen Delivery Me thod Nasal Cannula Nasal Cannula Oxygen Flow Rate 1 1 12/24/24 22:31 12/24/24 22:32 12/24/24 22:33 Temperature 98.3 F Pulse Rate 83 Pulse Rate [Left R adial] 86 Respiratory Rate 16 16 Blood Pressure Blood Pressure [Le ft Arm] 147/63 H Pulse Oximetry 96 96 Oxygen Delivery Me thod Nasal Cannula Nasal Cannula Oxygen Flow Rate 1 1 12/24/24 22:49 12/24/24 23:00 12/25/24 02:40 Temperature 98.3 F 98.5 F Pulse Rate Pulse Rate [Left R adial] 86 86 88 Respiratory Rate 16 16 16 Blood Pressure Blood Pressure [Le ft Arm] 147/63 H 161/78 H Pulse Oximetry 96 93 Oxygen Delivery Me thod Nasal Cannula Nasal Cannula Oxygen Flow Rate 1 1 12/25/24 03:00 12/25/24 03:00 12/25/24 07:07 Temperature 98.5 F Pulse Rate 91 Pulse Rate [Left R adial] 88 Respiratory Rate 16 Blood Pressure Blood Pressure [Le ft Arm] 161/78 H Pulse Oximetry 93 93 Oxygen Delivery Me thod Nasal Cannula Oxygen Flow Rate 1 12/25/24 08:03 12/25/24 08:03 12/25/24 08:05 Temperature 98.7 F Pulse Rate Pulse Rate [Left R adial] 105 H 105 H Respiratory Rate 16 16 16 Blood Pressure Blood Pressure [Le ft Arm] 176/84 H Pulse Oximetry 95 95 Oxygen Delivery Me thod Nasal Cannula Nasal Cannula Oxygen Flow Rate 1 1 12/25/24 11:00 12/25/24 11:00 12/25/24 14:40 Temperature 98.8 F 98.0 F Pulse Rate 75 Pulse Rate [Left R adial] 98 Respiratory Rate 18 14 Blood Pressure 92/56 L Blood Pressure [Le ft Arm] 165/75 H Pulse Oximetry 94 94 94 Oxygen Delivery Me thod Nasal Cannula Nasal Cannula Oxygen Flow Rate 1 4 12/25/24 14:45 12/25/24 14:50 12/25/24 14:55 Temperature Pulse Rate 79 77 79 Pulse Rate [Left R adial] Respiratory Rate 16 16 16 Blood Pressure 90/49 L 101/50 L 102/60 Blood Pressure [Le ft Arm] Pulse Oximetry 95 94 93 Oxygen Delivery Me thod Nasal Cannula Nasal Cannula Nasal Cannula Oxygen Flow Rate 4 4 4 12/25/24 15:00 12/25/24 15:05 12/25/24 15:10 Temperature 97.7 F Pulse Rate 83 83 84 Pulse Rate [Left R adial] Respiratory Rate 16 16 16 Blood Pressure 94/67 134/68 128/63 Blood Pressure [Le ft Arm] Pulse Oximetry 94 93 93 Oxygen Delivery Me thod Nasal Cannula Nasal Cannula Nasal Cannula Oxygen Flow Rate 2 2 2 12/25/24 15:23 12/25/24 15:30 12/25/24 15:45 Temperature 96.6 F L 96.6 F L Pulse Rate 101 H 96 85 Pulse Rate [Left R adial] Respiratory Rate 18 18 18 Blood Pressure 157/79 H 131/70 116/72 Blood Pressure [Le ft Arm] Pulse Oximetry 97 96 94 Oxygen Delivery Me thod Nasal Cannula Nasal Cannula Nasal Cannula Oxygen Flow Rate 1 1 1 12/25/24 16:00 12/25/24 16:11 12/25/24 16:11 Temperature Pulse Rate 85 Pulse Rate [Left R adial] Respiratory Rate 18 18 Blood Pressure 132/74 Blood Pressure [Le ft Arm] Pulse Oximetry 94 94 Oxygen Delivery Me thod Nasal Cannula Nasal Cannula Nasal Cannula Oxygen Flow Rate 1 1 12/25/24 16:13 12/25/24 16:15 12/25/24 16:45 Temperature Pulse Rate 88 85 Pulse Rate [Left R adial] Respiratory Rate 18 18 18 Blood Pressure 122/67 100/56 L Blood Pressure [Le ft Arm] Pulse Oximetry 94 95 Oxygen Delivery Me thod Nasal Cannula Nasal Cannula Oxygen Flow Rate 1 1 12/25/24 16:57 Temperature Pulse Rate 83 Pulse Rate [Left R adial] Respiratory Rate Blood Pressure Blood Pressure [Le ft Arm] Pulse Oximetry Oxygen Delivery Me thod Oxygen Flow Rate Labs Labs: Laboratory Results - last 24 hr 12/24/24 12/25/24 16:34 06:04 WBC 9.00 RBC 3.75 L Hgb 12.5 Hct 36.7 MCV 98 MCH 33 MCHC 34 RDW Coeff of Ruthie 12.5 Plt Count 152 Neut % (Auto) 82.6 H Lymph % (Auto) 8.2 L [place] % (Auto) 8.6 Eos % (Auto) 0.3 Baso % (Auto) 0.1 Neut # (Auto) 7.40 H Lymph # (Auto) 0.70 L [place] # (Auto) 0.80 Eos # (Auto) 0.03 Baso # (Auto) 0.01 Abs Immat Gran (auto) 0.02 Imm/Tot Granulo (auto) 0.2 Sodium 126 L Potassium 4.3 Chloride 94 L Carbon Dioxide 24 Anion Gap 8 BUN 15 Creatinine 0.7 Estimated Creat Clear 40.72 Estimated GFR 85 Glucose 136 H Calcium 8.4 Total Bilirubin 0.9 AST 35 ALT 26 Alkaline Phosphatase 57 Total Protein 6.3 Albumin 3.6 Ethyl Alcohol < 0.01 < 0.01
--- NOTE | 2024-12-25 18:00 | PC.NURSE ---
End of shift note . pt has been pleasant. she is alert x4. she has been forgetful at times. alarms are on and she is a fall risk. Coughlin cath patent. ?Pt has been on 1 LPM to keep sao2 above 90%. PRN Dilaudid. right hip pain. active ice to the hip. dressing is C/D/I/ she was has NPO for surgery and she was regular diet after surgery., she pulled IV IV out., CIWAs of 2-4. Tele NSR noted. Bed alarm on for safety and call light within reach. ?
[2024-12-25] MEDS: CEFAZOLIN 2 GM in 0.9 % SODIUM CHLORIDE Mini-bag 100 ML IVPB (19:24)
[2024-12-25] MEDS: ASPIRIN 81 MG TABLET EC PO (20:47)
[2024-12-25] MEDS: SENNOSIDES 1 TAB TABLET 2 TAB PO (20:48)
[2024-12-25] MEDS: THIAMINE 100 MG TABLET 250 MG PO (20:49)
[2024-12-25] MEDS: OXYCODONE 5 MG TABLET PO (22:01)
[2024-12-25] MEDS: ACETAMINOPHEN 325 MG TABLET 650 MG PO (23:44)
[2024-12-25] MEDS: ONDANSETRON ODT 4 MG TAB PO (23:45)
[2024-12-26] VITALS (18 sets, daily range): BP systolic 118–163; BP diastolic 52–71; PULSE 77–98; RESP 12–18; TEMP 36.2–37.1; O2SAT 85–96; BMI 30.7
[2024-12-26] MEDS: OXYCODONE 5 MG TABLET PO ×5 (00:09→20:52)
[2024-12-26] MEDS: LORazepam 2 MG/ML inj IVP (00:29)
--- NOTE | 2024-12-26 02:17 | PC.NURSE ---
Per MD, pt ok to have B/P, lab draws and IV insertion to RUE as hx of lymph note removal to this extremity was more than 20 years ago (1985 per pt report).
[2024-12-26] MEDS: CEFAZOLIN 2 GM in 0.9 % SODIUM CHLORIDE Mini-bag 100 ML IVPB (02:50)
[2024-12-26] MEDS: LACTATED RINGERS 1000 ML 1,000 ML 75 ML IV (03:36)
[2024-12-26] MEDS: ACETAMINOPHEN 325 MG TABLET 650 MG PO ×2 (06:14→20:52)
[2024-12-26 06:47] LABS: Hematocrit* 29.8 % (33.0-51.0); Hemoglobin* 10.4 gm/dL (12.0-16.0); Mean Corpuscular HGB Conc 35 gm/dL (32-36); Mean Corpuscular Hemoglobin 34 pg (26-34); Mean Corpuscular Volume 97 fL (80-100); Platelet Count* 139 K/uL (140-440); Red Blood Count* 3.06 m/uL (4.00-5.20); White Blood Count* 7.81 K/uL (4.50-11.00)
[2024-12-26 06:50] LABS: Slide Review Reflex No
--- NOTE | 2024-12-26 06:59 | PC.NURSE ---
End of shift note [id number]: Pt noted to be A&O to person, place and time though confused regarding correct day of week at times throughout the shift. Pt able to transfer with assist of 2 with FWW and gait belt. Dressings to R hip C/D/I and CMS intact. Coughlin catheter in place. PRN Dilaudid (x1) and PRN Oxycodone administered throughout the shift for pain to R hip following surgery- see EMAR for details. Active ice provided to R hip. CIWAs 1-11 throughout the shift with PRN Lorazepam given per protocol. Pt has been afebrile. She has been on 1-2 LPM oxygen via NC throughout the shift in order to maintain O2 sats per order. SCDs worn to BLEs. Pt has required much encouragement throughout the shift to allow staff to reposition/offload her in bed and get up out of bed. Pt was educated regarding risks of post-op complications including PNX and DVT. LR running per order as pt not po adequate at this time though she did accept 100% of nutritional supplement at HS last evening. Tele in place with NSR with first degree AV Block which is unchanged when compared to EKG performed upon admit. Bed alarm on for safety and call light within reach. ?
--- NOTE | 2024-12-26 08:48 | PM.ORPN ---
Subjective Subjective Time Seen by Provider: 10:30 Date Seen: 12/26/24 Principal diagnosis: Day 1 s/p right intertrochanteric hip fracture ORIF with IM nail Interval history: Vanessa is resting comfortably in her recliner. She has completed her PT and OT this morning. This morning she c/o mild-moderate right hip pain that is well managed with rest, ice, Tylenol and Oxycodone PRN. Overnight, Vanessa's pain was managed with Dilaudid (x1) and Oxycodone. Denies: chest pain, fever, chills, numbness/tingling distally. Associated symptoms include: dyspnea (chronic, not new postoperatively). Patient has required 1-2 L oxygen via nasal cannula. Hgb this AM is 10.4. Ortho Exam Narrative Exam Narrative: Incision/Dressing: Dressings appear clean and dry. No drainage present. Mepilex intact x2. Right hip appears moderately swollen but supple with no obvious erythema, fluctuance or excessive warmth. No ecchymosis or erythematous streaking. Warmth around the wound is appropriate. Ice is being utilized as needed. CMS: Intact distally with 2+ Dorsalis pedis and Posterior Tibial pulses. 5/5 motor strength dorsal and plantar flexion. Confirmed sensation distally. Calf: Bilateral calves are supple, with no swelling, pain, tenderness, erythema, discoloration or coolness to the touch. Constitutional: Patient is alert and oriented x3. Patient is in no acute distress and converses without labored breathing. Patient is pleasant and cooperative. Affect is full range and appropriate for the circumstances. Const Vital Signs, click to edit/add: Vital Signs - 24 hr 12/25/24 11:00 12/25/24 11:00 12/25/24 14:40 Temperature 98.8 F 98.0 F Pulse Rate 75 Pulse Rate [Left Radial] 98 Respiratory Rate 18 14 Blood Pressure 92/56 L Blood Pressure [Left Arm] 165/75 H Pulse Oximetry 94 94 94 Oxygen Delivery Method Nasal Cannula Nasal Cannula Oxygen Flow Rate 1 4 12/25/24 14:45 12/25/24 14:50 12/25/24 14:55 Temperature Pulse Rate 79 77 79 Pulse Rate [Left Radial] Respiratory Rate 16 16 16 Blood Pressure 90/49 L 101/50 L 102/60 Blood Pressure [Left Arm] Pulse Oximetry 95 94 93 Oxygen Delivery Method Nasal Cannula Nasal Cannula Nasal Cannula Oxygen Flow Rate 4 4 4 12/25/24 15:00 12/25/24 15:05 12/25/24 15:10 Temperature 97.7 F Pulse Rate 83 83 84 Pulse Rate [Left Radial] Respiratory Rate 16 16 16 Blood Pressure 94/67 134/68 128/63 Blood Pressure [Left Arm] Pulse Oximetry 94 93 93 Oxygen Delivery Method Nasal Cannula Nasal Cannula Nasal Cannula Oxygen Flow Rate 2 2 2 12/25/24 15:23 12/25/24 15:30 12/25/24 15:45 Temperature 96.6 F L 96.6 F L Pulse Rate 101 H 96 85 Pulse Rate [Left Radial] Respiratory Rate 18 18 18 Blood Pressure 157/79 H 131/70 116/72 Blood Pressure [Left Arm] Pulse Oximetry 97 96 94 Oxygen Delivery Method Nasal Cannula Nasal Cannula Nasal Cannula Oxygen Flow Rate 1 1 1 12/25/24 16:00 12/25/24 16:11 12/25/24 16:11 Temperature Pulse Rate 85 Pulse Rate [Left Radial] Respiratory Rate 18 18 Blood Pressure 132/74 Blood Pressure [Left Arm] Pulse Oximetry 94 94 Oxygen Delivery Method Nasal Cannula Nasal Cannula Nasal Cannula Oxygen Flow Rate 1 1 12/25/24 16:13 12/25/24 16:15 12/25/24 16:45 Temperature Pulse Rate 88 85 Pulse Rate [Left Radial] Respiratory Rate 18 18 18 Blood Pressure 122/67 100/56 L Blood Pressure [Left Arm] Pulse Oximetry 94 95 Oxygen Delivery Method Nasal Cannula Nasal Cannula Oxygen Flow Rate 1 1 12/25/24 16:57 12/25/24 17:00 12/25/24 18:00 Temperature Pulse Rate 83 90 91 Pulse Rate [Left Radial] Respiratory Rate 18 18 Blood Pressure 132/64 126/78 Blood Pressure [Left Arm] Pulse Oximetry 91 92 Oxygen Delivery Method Nasal Cannula Nasal Cannula Oxygen Flow Rate 1 1 12/25/24 19:00 12/25/24 19:56 12/25/24 20:00 Temperature 97.0 F L 99.0 F Pulse Rate 88 99 Pulse Rate [Left Radial] Respiratory Rate 18 18 Blood Pressure 142/62 H 154/73 H Blood Pressure [Left Arm] Pulse Oximetry 92 95 95 Oxygen Delivery Method Nasal Cannula Nasal Cannula Oxygen Flow Rate 1 1 12/25/24 20:00 12/25/24 22:41 12/25/24 22:55 Temperature 99.0 F 98.8 F Pulse Rate 94 Pulse Rate [Left Radial] 99 94 Respiratory Rate 18 18 Blood Pressure Blood Pressure [Left Arm] 154/73 H 155/71 H Pulse Oximetry 95 96 Oxygen Delivery Method Nasal Cannula Nasal Cannula Oxygen Flow Rate 1 2 12/25/24 22:59 12/25/24 23:00 12/25/24 23:00 Temperature 98.8 F Pulse Rate Pulse Rate [Left Radial] 94 94 Respiratory Rate 18 18 18 Blood Pressure Blood Pressure [Left Arm] 155/71 H Pulse Oximetry 96 96 Oxygen Delivery Method Nasal Cannula Nasal Cannula Oxygen Flow Rate 2 2 12/26/24 00:19 12/26/24 00:24 12/26/24 01:24 Temperature 98.8 F 98.8 F 97.2 F L Pulse Rate Pulse Rate [Left Radial] 94 98 94 Respiratory Rate 18 18 18 Blood Pressure Blood Pressure [Left Arm] 155/71 H 145/62 H 143/63 H Pulse Oximetry 96 92 93 Oxygen Delivery Method Nasal Cannula Nasal Cannula Nasal Cannula Oxygen Flow Rate 2 1 2 12/26/24 02:24 12/26/24 03:24 12/26/24 03:25 Temperature 97.7 F 97.6 F Pulse Rate Pulse Rate [Left Radial] 91 81 Respiratory Rate 16 16 Blood Pressure Blood Pressure [Left Arm] 119/52 L 118/61 Pulse Oximetry 94 93 94 Oxygen Delivery Method Nasal Cannula Nasal Cannula Oxygen Flow Rate 2 1.5 12/26/24 03:25 12/26/24 06:45 Temperature 97.6 F Pulse Rate Pulse Rate [Left Radial] 81 Respiratory Rate 16 Blood Pressure Blood Pressure [Left Arm] 118/61 Pulse Oximetry 93 93 Oxygen Delivery Method Nasal Cannula Nasal Cannula Oxygen Flow Rate 1.5 1 Assessment and Plan Assessment and plan (1) Closed fracture of right hip: Problem details: Day 1 s/p right intertrochanteric hip fracture ORIF with IM nail. DOS: 12/25/24, Dr. Ca. Status: Acute Assessment and Plan: - Mepilex dressings to be removed in 10-14 days or at her first postop Orthopedic f/u appt. Dressing is waterproof. May shower. Surgical glue covers the wound. - Weight bear as tolerated with walker for assistance. - For pain management, recommend ice, elevation, Tylenol and Oxycodone PRN. ? - For DVT prophylaxis: aspirin 81 mg BID x 35 days. Also recommend ankle pumps when sedentary and frequent ambulation. - Anticipate discharge to SNF. Patient will also require PT/OT cares. - Patient will f/u with myself in 1-2 weeks for wound check. Patient will f/u with Dr. Ca at 6 weeks postoperative. - Notify Orthopedics with any questions or concerns. ([phone]). Total Time Spent Total time spent: 15 minutes.
[2024-12-26] MEDS: THIAMINE 100 MG TABLET 250 MG PO ×2 (08:59→20:51)
[2024-12-26] MEDS: MULTIVITAMIN/MINERALS 1 TABLET 1 TAB PO (09:00)
[2024-12-26] MEDS: ASPIRIN 81 MG TABLET EC PO ×2 (09:00→20:50)
[2024-12-26] MEDS: SENNOSIDES 1 TAB TABLET 2 TAB PO ×2 (09:00→20:51)
[2024-12-26] MEDS: FLUOXETINE HCL 20 MG CAPSULE 60 MG PO (09:01)
[2024-12-26] MEDS: FOLIC ACID 1 MG TABLET PO (09:01)
[2024-12-26] MEDS: lisinopriL 5 MG TABLET PO (09:01)
--- NOTE | 2024-12-26 15:27 | PC.SOCIAL ---
Addendum entered by JUANY Marshall 12/26/24 16:43: Called pt's dtr Mauro at 4:15 as requested and dtr called other dtr into the phone call. Both dtrs agree pt needs long term rehab short term prior to returning home to the [facility]. Dtrs were disappointed to hear there are no insurance contracted facilities in [place]. Shared information on the closest facilities and the [facility] ratings by phone. Also emailed list of contracted facilities with the [facility] rating information to dtr. Dtrs plan to look at the list together and will provide social security assessor with list of facilities to contact tomorrow morning. alley worker to follow up as needed. Original Note: Discharge planning: SW met with patient to discuss short-term rehab. Patient states right away that she likely will need this as she needed it when she broke her ankle years ago. Patient reports that she was living in a different state at the time she was in rehab so does not know any facilities here. SW provided a list of TCU's that accept patient's insurance. Patient noted there are none in [place] so doesn't know how she would get there as both her daughters work. SW discussed [facility] and cost, but patient states she can't pay for that. Patient then states that she should just go home and get therapy through [facility] like she did 1.5 years ago for her knee. SW inquired about how she would care for herself there and patient states she would make it work. SW asked if patient would like SW to call her daughter to discuss the recommendations and list of TCU's. Patient states that SW can call daughter Emperatriz to discuss this. Patient had no other questions at this time. LANA called Emperatriz who requested a call at/after 4:00 PM. SW explained that she wouldn't be here, but a coworker could call her. LANA provided handoff to LANA Rojas.
--- NOTE | 2024-12-26 16:43 | P.IMPN_ITS ---
Assessment and Plan Assessment and plan (1) Frequent falls: Problem comment: Acute on chronic. EtOH and neuropathy are factors. Status: Acute (2) Alcohol abuse: Problem comment: CIWA protocol, got dose of phenobarb 12/24, one dose of lorazepam overnight. CIWA scores are 0-11. Continue Thiamine, folate, vitamin Status: Inactive (3) Closed fracture of right hip: Problem comment: Day 1 s/p right intertrochanteric hip fracture ORIF with IM nail. DOS: 12/25/24, Dr. Ca. Status: Acute (4) Hypertension: Problem comment: Continue lisinopril Status: Inactive (5) Malnutrition: Problem comment: Protein calorie malnutrition, moderate, alcohol use likely contributing to this Continue nutritional supplements Status: Inactive (6) Diabetes mellitus, type II: Problem comment: Diet controlled. Hemoglobin A1c today is 5.6%. Monitor with the daily labs. Status: Chronic (7) Mitral regurgitation: Problem comment: - at 1st I could not find information about this and the patient was unaware of the murmur. I ordered an echocardiogram for this and her complaint of shortness of breath, which was done today. Preliminary results of echocardiogram are reassuring. No further workup prior to surgery. Status: Chronic (8) Dyspnea: Problem comment: I suspect this is likely secondary to alcohol use and deconditioning. Echocardiogram completed 12/24, reassuring Status: Acute (9) Ascending aortic aneurysm: Problem comment: On preliminary echo this is 3.4 cm 12/24/24, f/u annually as outpatient Status: Acute (10) Hyponatremia: Problem comment: Mild, asymptomatic, likely acute on chronic, suspect multifactorial due to SSRI, malnutrition and alcohol use. Start FR 1500cc/day and increase nutritional supplements to TID. Status: Acute (11) Acute alcohol intoxication: Problem comment: - above the driving legal limit - this likely contributed to her fall last night - not able to consent for surgery at this time, recheck in the morning - 12/25 medical blood alcohol level this morning is nondetectable, resolved Status: Resolved Plan Will need rehab Total Time Spent Total Time Spent: Today I spent 50minutes seeing the patient, speaking with her daughters over the phone, reviewing [facility] and [facility] notes/diagnostics/labs, discussing the care plan with our care team that includes social work, PT/OT, pharmacy, RT, retirement and documenting my impressions and plan in the medical record. Subjective Time Seen by Provider: 09:27 Date Seen: 12/26/24 Interval history: Vanessa asked me about her sodium level being low. We discussed her chronic and current use of alcohol and how that has contributed to her falls, low sodium, and likely also contributes to lightheadedness and dyspnea. She had little insight into this and told me she fell for other reasons and that her sodium is low due to her low salt diet and lightheadedness and dyspnea are not due to alcohol. She is not motivated to quit. I recommended to her that she abstain from alcohol for at least 2-3 months to see if her symptoms and sodium improved, and that ideally, she would abstain life-long. Vanessa wanted me to call and update one of her daughters. I called Racheal who happened to be with Terri, so I spoke with both of them. We discussed her need for SNF for rehab and my concern about her alcohol use. They were understanding and noted that it has been a chronic problem for her and they are hoping that she would may be moving to assisted living more permanently, but they are realistic that she probably will not. Exam Narrative: Exam Narrative: General: No acute distress. Awake, alert, oriented. No pallor. No jaundice. Oropharynx: Clear. Mucous membranes moist. Cardiovascular: Regular rate and rhythm. Grade 2/6 systolic murmur, unchanged. Respiratory: Clear to auscultation bilaterally. No wheezes or crackles. Abdomen: Bowel sounds present. Soft, nondistended, nontender. Extremities: Right hip bandages are C/D/I. No lower extremity edema. Const: Vital Signs, click to edit/add: Vital Signs - 24 hr 12/25/24 16:45 12/25/24 16:57 12/25/24 17:00 Temperature Pulse Rate 85 83 90 Pulse Rate [Left R adial] Respiratory Rate 18 18 Blood Pressure 100/56 L 132/64 Blood Pressure [Le ft Arm] Blood Pressure [ri ght Ar,] Pulse Oximetry 95 91 Oxygen Delivery Me thod Nasal Cannula Nasal Cannula Oxygen Flow Rate 1 1 12/25/24 18:00 12/25/24 19:00 12/25/24 19:56 Temperature 97.0 F L Pulse Rate 91 88 Pulse Rate [Left R adial] Respiratory Rate 18 18 Blood Pressure 126/78 142/62 H Blood Pressure [Le ft Arm] Blood Pressure [ri ght Ar,] Pulse Oximetry 92 92 95 Oxygen Delivery Me thod Nasal Cannula Nasal Cannula Oxygen Flow Rate 1 1 12/25/24 20:00 12/25/24 20:00 12/25/24 22:41 Temperature 99.0 F 99.0 F Pulse Rate 99 94 Pulse Rate [Left R adial] 99 Respiratory Rate 18 18 Blood Pressure 154/73 H Blood Pressure [Le ft Arm] 154/73 H Blood Pressure [ri ght Ar,] Pulse Oximetry 95 95 Oxygen Delivery Me thod Nasal Cannula Nasal Cannula Oxygen Flow Rate 1 1 12/25/24 22:55 12/25/24 22:59 12/25/24 23:00 Temperature 98.8 F 98.8 F Pulse Rate Pulse Rate [Left R adial] 94 94 Respiratory Rate 18 18 18 Blood Pressure Blood Pressure [Le ft Arm] 155/71 H 155/71 H Blood Pressure [ri ght Ar,] Pulse Oximetry 96 96 96 Oxygen Delivery Me thod Nasal Cannula Nasal Cannula Nasal Cannula Oxygen Flow Rate 2 2 2 12/25/24 23:00 12/26/24 00:19 12/26/24 00:24 Temperature 98.8 F 98.8 F Pulse Rate Pulse Rate [Left R adial] 94 94 98 Respiratory Rate 18 18 18 Blood Pressure Blood Pressure [Le ft Arm] 155/71 H 145/62 H Blood Pressure [ri ght Ar,] Pulse Oximetry 96 92 Oxygen Delivery Me thod Nasal Cannula Nasal Cannula Oxygen Flow Rate 2 1 12/26/24 01:24 12/26/24 02:24 12/26/24 03:24 Temperature 97.2 F L 97.7 F 97.6 F Pulse Rate Pulse Rate [Left R adial] 94 91 81 Respiratory Rate 18 16 16 Blood Pressure Blood Pressure [Le ft Arm] 143/63 H 119/52 L 118/61 Blood Pressure [ri ght Ar,] Pulse Oximetry 93 94 93 Oxygen Delivery Me thod Nasal Cannula Nasal Cannula Nasal Cannula Oxygen Flow Rate 2 2 1.5 12/26/24 03:25 12/26/24 03:25 12/26/24 06:45 Temperature 97.6 F Pulse Rate Pulse Rate [Left R adial] 81 Respiratory Rate 16 Blood Pressure Blood Pressure [Le ft Arm] 118/61 Blood Pressure [ri ght Ar,] Pulse Oximetry 94 93 93 Oxygen Delivery Me thod Nasal Cannula Nasal Cannula Oxygen Flow Rate 1.5 1 12/26/24 08:42 12/26/24 08:42 12/26/24 08:42 Temperature 97.9 F 97.9 F Pulse Rate Pulse Rate [Left R adial] 97 97 97 Respiratory Rate 16 16 16 Blood Pressure Blood Pressure [Le ft Arm] 163/70 H 163/70 H Blood Pressure [ri ght Ar,] Pulse Oximetry 90 90 Oxygen Delivery Me thod Room Air Room Air Oxygen Flow Rate 12/26/24 08:42 12/26/24 09:29 12/26/24 11:02 Temperature Pulse Rate 77 Pulse Rate [Left R adial] Respiratory Rate 16 Blood Pressure Blood Pressure [Le ft Arm] Blood Pressure [ri ght Ar,] Pulse Oximetry 90 85 L Oxygen Delivery Me thod Room Air Room Air Oxygen Flow Rate 12/26/24 11:18 12/26/24 11:18 12/26/24 11:18 Temperature 98 F 98 F Pulse Rate Pulse Rate [Left R adial] 87 87 Respiratory Rate 12 12 Blood Pressure Blood Pressure [Le ft Arm] 163/70 H Blood Pressure [ri ght Ar,] 125/60 125/60 Pulse Oximetry 94 94 94 Oxygen Delivery Me thod Nasal Cannula Nasal Cannula Oxygen Flow Rate 1 1 12/26/24 15:37 12/26/24 15:37 12/26/24 15:37 Temperature 98.2 F 98.2 F Pulse Rate Pulse Rate [Left R adial] 82 82 82 Respiratory Rate 16 16 16 Blood Pressure Blood Pressure [Le ft Arm] 132/60 132/60 Blood Pressure [ri ght Ar,] Pulse Oximetry 93 93 Oxygen Delivery Me thod Nasal Cannula Nasal Cannula Oxygen Flow Rate 1 1 12/26/24 15:37 12/26/24 15:54 Temperature Pulse Rate 79 Pulse Rate [Left R adial] Respiratory Rate 16 Blood Pressure Blood Pressure [Le ft Arm] Blood Pressure [ri ght Ar,] Pulse Oximetry 93 Oxygen Delivery Me thod Nasal Cannula Oxygen Flow Rate 1 Labs Labs: Laboratory Results - last 24 hr 12/26/24 06:07 WBC 7.81 RBC 3.06 L Hgb 10.4 L Hct 29.8 L MCV 97 MCH 34 MCHC 35 Plt Count 139 L
--- NOTE | 2024-12-26 19:30 | PC.NURSE ---
Addendum entered by Moni Mcknight RN 12/26/24 19:39: Tele=NS w/ first degree HB. Original Note: End of Shift: Patient pleasant and cooperative, alert and oriented. Patient vitally stable, lungs clear, BS WNL, IV SL. Patient on 1 L NS with sats in the mide 90s. Patient rate right hip pain at most 8/10, otherwise 1/10, 10 mg of oxy given twice. Right hip dressing C/D/I. CIWAs were 1, 4, and 0, patient reports she is always anxious but did report feeling less anxious than usual once. Patient did have beaded sweating on forehead once today. Patient lin intact and draining. Patient 1-2 A/walker. Patient tolerating regular diet.
[2024-12-26] MEDS: SODIUM CHLORIDE 0.9 % (FLUSH) 10 ML SYRINGE 5 ML IVF (20:55)
[2024-12-27] VITALS (9 sets, daily range): BP systolic 129–153; BP diastolic 60–73; PULSE 71–97; RESP 16–20; TEMP 36.2–36.9; O2SAT 92–99
[2024-12-27] MEDS: bisacodyL 10 MG SUPP.RECT PR (06:15)
[2024-12-27] MEDS: ACETAMINOPHEN 325 MG TABLET 650 MG PO ×2 (06:19→20:44)
[2024-12-27] MEDS: OXYCODONE 5 MG TABLET PO ×3 (06:19→20:45)
--- NOTE | 2024-12-27 07:43 | PC.NURSE ---
End of shift note [id number]: Pt noted to be A&O x 4 this shift. CIWAs 0. Dressings to R hip C/D/I and CMS intact. Coughlin catheter remains in place. PRN Oxycodone and Tylenol administered for pain to R hip following surgery- see EMAR. Active ice provided to R hip. Pt has been afebrile. She has been on 1-2 LPM oxygen via NC throughout the shift in order to maintain O2 sats per order. SCDs worn to BLEs. Pt continues to require much encouragement to get out of bed and was educated regarding post-op risks of immobility including PNX and DVT. Pt is SL and drank 100% of nutritional supplement at HS. Tele in place with NSR with first degree AV Block which is unchanged when compared to EKG performed upon admit. PRN Bisacodyl supp given to promote BM- pt passing gas. Coughlin cath in place. Pt transferring with assist of 2 using FWW and gait belt. Staff had pt up to BSC despite pt requesting to use bedpan. Bed alarm on for safety and call light within reach. ?
[2024-12-27 08:45] LABS: Basophils Absolute Auto 0.05 K/uL (0.00-0.30); Basophils Percent Auto 0.6 % (0.0-3.0); Eosinophils Absolute Auto 0.03 K/uL (0.00-0.50); Eosinophils Percent Auto 0.3 % (0.0-7.0); Hematocrit* 29.1 % (33.0-51.0); Hemoglobin* 10.2 gm/dL (12.0-16.0); Immature Granulocytes Abs Auto 0.02 K/uL (0.00-0.30); Immature Granulocytes Pct Auto 0.2 %; Lymphocytes Percent Auto 6.9 % (20-44); Mean Corpuscular HGB Conc 35 gm/dL (32-36); Mean Corpuscular Hemoglobin 34 pg (26-34); Mean Corpuscular Volume 97 fL (80-100); Monocytes Percent Auto 7.9 % (0.0-11.0); Neutrophils Percent Auto 84.1 % (42.0-72.0); Platelet Count* 153 K/uL (140-440); RDW Coefficient of Variation % 12.4 % (11.5-15.5); Red Blood Count* 3.01 m/uL (4.00-5.20); White Blood Count* 9.08 K/uL (4.50-11.00)
[2024-12-27 08:49] LABS: Slide Review Reflex No
[2024-12-27 09:02] LABS: Chloride* 92 mmol/L (96-114)
[2024-12-27 09:03] LABS: Potassium* 4.5 mmol/L (3.6-5.1)
[2024-12-27 09:05] LABS: Blood Urea Nitrogen* 14 mg/dL (7-30); Creatinine* 0.8 mg/dL (0.5-1.5); Est. Creatinine Clearance* 40.72; Estimated Glomerular Filt Rate 73 ml/min
[2024-12-27 09:06] LABS: Anion Gap 6 mEq/L (7-15); Calcium* 9.1 mg/dL (8.4-10.6); Carbon Dioxide* 26 mmol/L (20-32); Glucose* 144 mg/dL (60-115)
[2024-12-27 09:21] LABS: Sodium* 124 mmol/L (135-149)
[2024-12-27] MEDS: THIAMINE 100 MG TABLET 250 MG PO ×2 (09:28→20:45)
[2024-12-27] MEDS: SENNOSIDES 1 TAB TABLET 2 TAB PO ×2 (09:29→20:46)
[2024-12-27] MEDS: ASPIRIN 81 MG TABLET EC PO ×2 (09:29→20:44)
[2024-12-27] MEDS: FLUOXETINE HCL 20 MG CAPSULE 60 MG PO (09:29)
[2024-12-27] MEDS: lisinopriL 5 MG TABLET PO (09:30)
[2024-12-27] MEDS: FOLIC ACID 1 MG TABLET PO (09:30)
[2024-12-27] MEDS: MULTIVITAMIN/MINERALS 1 TABLET 1 TAB PO (09:30)
[2024-12-27] MEDS: SODIUM CHLORIDE 0.9 % (FLUSH) 10 ML SYRINGE 5 ML IVF ×2 (09:34→20:51)
--- NOTE | 2024-12-27 12:04 | PC.SOCIAL ---
Addendum entered and electronically signed by France Schneider LCSW 12/27/24 15:18: SW contacted by [facility] informing that [facility] is full, but [facility] can accept patient for today, but needs to be there prior to 1800. SW spoke with patient who is okay with this as long as her daughters are. SW explained that daughters had provided the referrals and so they are agreeable and explained that while [facility] was the first choice, they are full. Patient agreed. SW explained she would call her daughter Rasheeda to discuss transportation. Patient discussed some concerns she had with nursing not leaving her the call light. SW asked if she would like to talk with the patient advocate and she said yes. SW called Rasheeda and left a voicemail requesting a call back about transportation and acceptance to [facility]. SW called Rasheeda two more times but she didn't answer. SW called Brisa and while talking to Brisa, Rasheeda called and and Brisa states SW should call Rasheeda back. SW called Rasheeda and discussed transportation, Rasheeda states she would prefer [facility]. SW discussed the cost being around $281 and she states that her mom will be able to pay for that or they will work out a way to. SW to call Rasheeda when a time is arranged. SW provided number and address for [facility] and [facility]. SW sent update to [facility] that patient will be arriving today prior to 1800, and SW will notify when a time is set. SW discussed cost of transportation (281) with patient and had her sign the transportation form, which she was agreeable to. SW notified by provider that patient's sodium is low and they would like to monitor her overnight. SW notified [facility] and asked if it's okay that transportation be arranged for 12/28 between 11-3. SW awaiting a response. SW left voicemail for daughter explaining the situation and left SW call back number as well as nurses station number. SW completed [id number] and sent to [facility]. Original Note: Discharge planning: SW received list of places that daughters would like referrals sent to. [facility] sent referrals to [facility] for [facility] and [facility] SW also sent referral to [facility] and [facility]. SW waiting to hear back from facilities.
--- NOTE | 2024-12-27 14:21 | PM.DS1 ---
DS: Providers Provider Time Seen by Provider: 07:30 Date Seen: 12/28/24 Date of admission: 12/24/24 08:46 Primary care physician: Franklin Espinoza MD Admitting Clinician: Cara Freire MD Consults: 12/24/24 10:37 Consult to Physician [CONS] Routine Comment: Consulting Provider: Oksana Jorge Has provider been notified: Yes Consult to Head Operator Sulfide [CONS] Routine Comment: Reason for Consult:: Discharge Planning Needs 12/25/24 15:18 Consult to Occupational Therapy [CONS] Routine Comment: Reason(s) for OT Consult:: Evaluate and Treat Any Restrictions?:: See Comment Comment: Status post right hip open reduction internal fixation Weight bear as tolerated operative extremity. Consult to Physical Therapy [CONS] Routine Comment: Reason(s) for PT Consult:: Evaluate and Treat Any Restrictions?:: Wt Bearing as Tolerated Comment: Status post right hip open reduction internal fixation Consult to Head Operator Sulfide [CONS] Routine Comment: Reason for Consult:: Discharge Planning Needs Attending Physician on discharge: Cara Freire MD Date of Discharge: 12/28/24 DS: Diagnosis Discharge Diagnosis (1) Closed fracture of right hip: Status: Resolved Problem details: 12/25/24 s/p right intertrochanteric hip fracture ORIF with IM nail. DOS: 12/25/24, Dr. Ca. (2) S/P ORIF (open reduction internal fixation) fracture: Status: Acute Problem details: 12/25/24 Dr. Ca right intratrochanteric hip fracture ORIF with IM nail (3) Frequent falls: Status: Acute Problem details: Acute on chronic. EtOH and neuropathy are factors. (4) Hyponatremia: Status: Acute Problem details: - likely acute on chronic, suspect multifactorial due to SSRI, malnutrition and alcohol use - Mild, asymptomatic 12/24 Na 128 12/25 Na 126 Start FR 1500cc/day and increase nutritional supplements to TID. 12/27 Na 124, recheck later in the day was 125, continue FR and nutritional supplements, recheck in am. If stable, may d/c to [facility]. 12/28 Na 127. Stable. Continue FR and nutrition supp. Nsg reported that patient had been asking daughter to bring her extra water and getting up in the room on her own to get water. Nsg and I educated patient again about need and benefits of FR. (5) Ascending aortic aneurysm: Status: Acute Problem details: On preliminary echo this is 3.4 cm 12/24/24, f/u annually as outpatient (6) Dyspnea: Status: Acute Problem details: I suspect this is likely secondary to alcohol use and deconditioning. Echocardiogram completed 12/24, reassuring (7) Acute alcohol intoxication: Status: Resolved Problem details: - above the driving legal limit - this likely contributed to her fall last night - not able to consent for surgery at this time, recheck in the morning - 12/25 medical blood alcohol level this morning is nondetectable, resolved (8) Mitral regurgitation: Status: Chronic Problem details: - at 1st I could not find information about this and the patient was unaware of the murmur. I ordered an echocardiogram for this and her complaint of shortness of breath, which was done today. Preliminary results of echocardiogram are reassuring. No further workup prior to surgery. (9) Diabetes mellitus, type II: Status: Chronic Problem details: Diet controlled. Hemoglobin A1c today is 5.6%. (10) Hypertension: Status: Chronic Problem details: Continue lisinopril (11) Malnutrition: Status: Acute Problem details: Protein calorie malnutrition, moderate, alcohol use likely contributing to this Continue nutritional supplements (12) Alcohol abuse: Status: Acute Problem details: Daily alcohol use x 66 years. Was whiskey, recently switched to wine, unable to quantify, drinks multiple glasses daily. 12/26 CIWA protocol, got dose of phenobarb 12/24, one dose of lorazepam overnight. CIWA scores are 0-11. Continue Thiamine, folate, vitamin 12/27 CIWA scores 0 overgnight DS: Summary Hospital Course Hospital Course: Per H&P: Vanessa Paris is a 84 year old female with a history of anxiety, alcoholism, hypertension, thyroid nodules, to different breast cancers, Moreno's esophagus, diet-controlled type 2 diabetes mellitus and osteopenia who presented through the emergency department today for inability to get up after a fall. She tells me that she must of had quite a bit to drink last night, but can not tell me how much. She got up to go to bed around midnight when she got her feet tangled under her and fell over. She was then unable to get up. After several hours she was able to crawl to the phone. She was found to have a right hip fracture for which Orthopedics was contacted and is hoping to do surgery tomorrow. Vanessa's medical blood alcohol level was also elevated this morning, so she was unable to consent for surgery. Megan tells me that she has been drinking for 66 years, at times more and at times less. She started drinking more heavily in May. She used to drink whiskey, but switched to wine at least 2-3 weeks ago. She is unable to tell me how much drinks currently or used to drink. It appears from reading the notes from [facility] that her previous primary care provider was trying to wean her off of clonazepam since she continued to drink alcohol, but she did not like that and switched providers. She tells me that she has been having intermittent dyspnea, she does not or know of anything that makes it better or worse and can not think of anything that causes it to happen. She is unaware of any heart murmurs. Prior to surgery she had an echocardiogram, results are below. Vanessa was given a dose of phenobarbital the 1st day and had mild withdrawal symptoms the night after surgery with CIWA scores of 1-11. Today her CIWA scores have been 0. She does have hyponatremia for which she was placed on a fluid restriction and protein shakes were started. She has been working with PT and OT after her hip surgery. Please see diagnoses above for full details. Patient is discharged to a transitional care unit in improved condition. Time Spent with Patient Time attestation: Total time spent providing and/or coordinating discharge services: Today I spent 35 minutes seeing and discharging the patient, reviewing [facility] and [facility] notes/diagnostics/labs, discussing the care plan with our care team that includes social work, PT/OT, pharmacy, RT, longterm and documenting my impressions and plan in the medical record. Exam Narrative: Exam Narrative: General: No acute distress. Awake, alert, oriented. No pallor. No jaundice. Oropharynx: Clear. Mucous membranes moist. Cardiovascular: Regular rate and rhythm. Grade 2/6 systolic murmur, unchanged. Respiratory: Clear to auscultation bilaterally. No wheezes or crackles. Extremities: Right hip bandages are C/D/I. No ecchymosis. No lower extremity edema. Const: Vital Signs, click to edit/add: Vital Signs - 24 hr 12/26/24 15:37 12/26/24 15:37 12/26/24 15:37 Temperature 98.2 F 98.2 F Pulse Rate Pulse Rate [Left R adial] 82 82 82 Respiratory Rate 16 16 16 Blood Pressure [Le ft Arm] 132/60 132/60 Blood Pressure [ri ght Ar,] Pulse Oximetry 93 93 Oxygen Delivery Me thod Nasal Cannula Nasal Cannula Oxygen Flow Rate 1 1 12/26/24 15:37 12/26/24 15:54 12/26/24 19:50 Temperature Pulse Rate 79 Pulse Rate [Left R adial] Respiratory Rate 16 Blood Pressure [Le ft Arm] Blood Pressure [ri ght Ar,] Pulse Oximetry 93 93 Oxygen Delivery Me thod Nasal Cannula Oxygen Flow Rate 1 12/26/24 19:50 12/26/24 19:50 12/26/24 22:49 Temperature 97.2 F L 97.2 F L 97.9 F Pulse Rate Pulse Rate [Left R adial] 91 91 94 Respiratory Rate 18 18 16 Blood Pressure [Le ft Arm] 142/66 H 142/66 H 137/59 L Blood Pressure [ri ght Ar,] Pulse Oximetry 93 93 95 Oxygen Delivery Me thod Nasal Cannula Nasal Cannula Nasal Cannula Oxygen Flow Rate 1 1 1 12/26/24 22:52 12/26/24 22:52 12/26/24 22:53 Temperature 97.9 F Pulse Rate 87 Pulse Rate [Left R adial] 94 Respiratory Rate 16 16 Blood Pressure [Le ft Arm] 137/59 L Blood Pressure [ri ght Ar,] Pulse Oximetry 95 95 Oxygen Delivery Me thod Nasal Cannula Nasal Cannula Oxygen Flow Rate 1 1 12/26/24 23:00 12/27/24 02:46 12/27/24 02:47 Temperature 98.3 F Pulse Rate Pulse Rate [Left R adial] 94 80 Respiratory Rate 16 18 Blood Pressure [Le ft Arm] 131/65 Blood Pressure [ri ght Ar,] Pulse Oximetry 96 96 Oxygen Delivery Me thod Nasal Cannula Oxygen Flow Rate 1 12/27/24 03:00 12/27/24 07:00 12/27/24 07:00 Temperature 98.3 F 97.8 F 97.8 F Pulse Rate Pulse Rate [Left R adial] 80 71 71 Respiratory Rate 18 16 16 Blood Pressure [Le ft Arm] 131/65 131/65 Blood Pressure [ri ght Ar,] 129/73 129/73 Pulse Oximetry 96 98 98 Oxygen Delivery Me thod Nasal Cannula Nasal Cannula Nasal Cannula Oxygen Flow Rate 1 1 1 12/27/24 07:00 12/27/24 07:00 12/27/24 07:00 Temperature Pulse Rate 76 Pulse Rate [Left R adial] 71 Respiratory Rate 16 16 Blood Pressure [Le ft Arm] Blood Pressure [ri ght Ar,] Pulse Oximetry 98 Oxygen Delivery Me thod Nasal Cannula Oxygen Flow Rate 1 12/27/24 10:03 12/27/24 11:00 12/27/24 11:00 Temperature 97.2 F L Pulse Rate Pulse Rate [Left R adial] 79 86 Respiratory Rate 16 Blood Pressure [Le ft Arm] Blood Pressure [ri ght Ar,] 150/60 H 151/60 H Pulse Oximetry 92 94 94 Oxygen Delivery Me thod Room Air Room Air Oxygen Flow Rate 1 DS: Data Data Completed and Pending Completed studies during hospitalization: 12/24/2024 EKG: Sinus rhythm with sinus arrhythmia with first-degree AV block, 76 beats per minute, T-wave abnormality, consider anterior ischemia, this is new compared with 01/01/2025. 12/24/2024 echocardiogram: Normal left ventricular size, normal wall thickness, hyperdynamic global systolic function, calculated EF of 80%. Right ventricular cavity size is normal, global systolic RV function is normal. The aortic valve is trileaflet and sclerotic, no stenosis and mild regurgitation. Tricuspid valve is normal, at least mild to moderate tricuspid regurgitation, in some few appears moderate. Daily increased estimated pulmonary pressures by tricuspid regurgitation velocity and right atrial pressure (44 mm Hg plus RAP). No pericardial effusion. Ordering Physician: Danitza Grimaldo M.D. Date of Service: 12/24/24 Procedure(s): XR hip RT min 2V Accession Number(s): [id number] cc: Franklin Espinoza M.D.; Danitza Grimaldo M.D.~ For Patients: As a result of the Century Cures Act, medical imaging exams and procedure reports are released immediately into your electronic medical record. You may view this report before your referring provider. If you have questions, please contact your health care provider. Indication: Trauma, fall with pain. Technique: Pelvis and right hip 3 views. Comparison: None. Findings/Impression: Bones: Acute moderately angulated intertrochanteric fracture of the right femur. No other focal osseous abnormality. Joint spaces: Moderate bilateral hip joint arthritis. Soft tissues: Unremarkable. Dictated by Jaylan Roque MD @ 12/24/2024 6:57:54 AM (Electronically Signed) Ordering Physician: Danitza Grimaldo M.D. Date of Service: 12/24/24 Procedure(s): XR chest 1V Accession Number(s): [id number] cc: Franklin Espinoza M.D.; Danitza Grimaldo M.D.~ For Patients: As a result of the Cures Act, medical imaging exams and procedure reports are released immediately into your electronic medical record. You may view this report before your referring provider. If you have questions, please contact your health care provider. INDICATION: Cough. Preop examination. TECHNIQUE: Chest 1 views. COMPARISON: December 11, 2024. FINDINGS: Cardiovasculature and mediastinum: Heart size is normal. Unremarkable mediastinum. Lungs and pleural spaces: Lungs are clear. No sign of infiltrate or mass. No sign of pleural effusion. No pneumothorax. Bones and soft tissues: No significant findings. IMPRESSION: Negative chest. Dictated by Jaylan Roque MD @ 12/24/2024 6:56:40 AM (Electronically Signed) Ordering Physician: Johann Ca Date of Service: 12/25/24 Procedure(s): XR hip RT min 2V Accession Number(s): [id number] cc: Franklin Espinoza M.D.; Johann Ca~ For Patients: As a result of the Cures Act, medical imaging exams and procedure reports are released immediately into your electronic medical record. You may view this report before your referring provider. If you have questions, please contact your health care provider. Indication: ORIF right hip Technique: Two fluoroscopic views right hip. Fluoroscopic time 1 minute 17.6 seconds. IMPRESSION: Fluoroscopic guidance for open reduction internal fixation of right proximal femoral fracture. Dictated by Tan Hay MD @ 12/26/2024 8:48:43 AM (Electronically Signed) Labs on day of discharge: Labs from last 24 hours 12/27/24 08:14 WBC 9.08 RBC 3.01 L Hgb 10.2 L Hct 29.1 L MCV 97 MCH 34 MCHC 35 RDW Coeff of Ruthie 12.4 Plt Count 153 Neut % (Auto) 84.1 H Lymph % (Auto) 6.9 L [place] % (Auto) 7.9 Eos % (Auto) 0.3 Baso % (Auto) 0.6 Neut # (Auto) 7.60 H Lymph # (Auto) 0.60 L [place] # (Auto) 0.70 Eos # (Auto) 0.03 Baso # (Auto) 0.05 Abs Immat Gran (auto) 0.02 Imm/Tot Granulo (auto) 0.2 Sodium 124 L* Potassium 4.5 Chloride 92 L Carbon Dioxide 26 Anion Gap 6 L BUN 14 Creatinine 0.8 Estimated Creat Clear 40.72 Estimated GFR 73 Glucose 144 H Calcium 9.1 Discharge Plan Discharge Disposition: [facility] Date of Admission: 12/24/24 08:46 Attending Provider on Discharge: Cara Freire Consulting Providers: Oksana Jorge Primary Care Provider: Franklin Espinoza Discharge Date/Time: 12/28/24 11:00 Discharge Medications: New thiamine mononitrate (vit B1) 250 mg tablet 250 mg PO BID Qty: 60 0RF sennosides [Senna Lax] 8.6 mg Tablet 2 mg PO BID Qty: 120 0RF aspirin 81 mg Tablet,Delayed Release (Dr/Ec) 81 mg PO BID Qty: 60 0RF folic acid 1 mg Tablet 1 mg PO DAILY Qty: 30 0RF multivitamin with folic acid [Thera] 400 mcg Tablet 1 tab PO DAILY Qty: 30 0RF oxycodone 5 mg Tablet 2.5 - 5 mg PO Q4-6H MDD 6 tabs per day PRN (Reason: Pain) Qty: 42 0RF Rx Instructions: Minimize. Discontinue as soon as possible Continued fluoxetine 20 mg capsule 60 mg PO DAILY Rx Instructions: total dose 60mg daily lisinopril 5 mg tablet 5 mg PO DAILY mirabegron [Myrbetriq] 25 mg tablet extended release 24 hr 25 mg PO DAILY PRN omeprazole 20 mg capsule,delayed release(DR/EC) 20 mg PO DAILY PRN sugar defender Rx Instructions: daily supplement Changed clonazepam 0.5 mg tablet 0.5 mg PO DAILY PRN (Reason: anxiety attack) Qty: 15 0RF gabapentin 300 mg capsule 300 mg PO DAILY PRNQty: 30 0RF Rx Instructions: NEEDED FOR NERVE PAIN Discontinued loperamide [Anti-Diarrheal (loperamide)] 2 mg capsule 2 mg PO Q6H PRN Discharge Orders: Discharge Order (Routine); Ordered 12/28/24 Ordered By: Cara Freire Activity Level: Activity as Tolerated, Weight Bearing as Tolerated and Use Walker Activity Detail: - Mepilex dressings to be removed in 10-14 days or at her first postop Orthopedic f/u appt. Dressing is waterproof. May shower. Surgical glue covers the wound. - Weight bear as tolerated with walker for assistance. - For pain management, recommend ice, elevation, Tylenol and Oxycodone PRN. - For DVT prophylaxis: aspirin 81 mg BID x 35 days. Also recommend ankle pumps when sedentary and frequent ambulation. - Patient will f/u with Oksana Jorge PA-C in 1-2 weeks for wound check. Patient will f/u with Dr. Ca at 6 weeks postoperative. - Notify Orthopedics with any questions or concerns. ([phone]). Discharge Diet: Regular and Other Diet Detail: 1800 ml Fluid Restriction; Nutritional supplements TID Follow Up Appointments: Franklin Espinoza MD [Primary Care Provider, [facility]] Forms: [facility] Info Instructions Admit to: SNF Discharge Potential: Good Length of Stay: <30 days Can use facility standing orders?: Yes Code Status: DNR/DNI Rehab Potential: Good Therapy: Physical Therapy and Occupational Therapy Therapy Orders: Evaluate and Treat Oxygen: No Urinary Catheter: No Lab Orders: Sodium Thursday Orders are good >30 days: No Signature: Cara Freire MD
[2024-12-27 14:48] LABS: Sodium* 125 mmol/L (135-149)
--- NOTE | 2024-12-27 14:59 | P.IMPN_ITS ---
Assessment and Plan Assessment and plan (1) Closed fracture of right hip: Problem comment: 12/25/24 s/p right intertrochanteric hip fracture ORIF with IM nail. DOS: 12/25/24, Dr. Ca. Status: Resolved (2) Frequent falls: Problem comment: Acute on chronic. EtOH and neuropathy are factors. Status: Acute (3) Hyponatremia: Problem comment: - likely acute on chronic, suspect multifactorial due to SSRI, malnutrition and alcohol use - Mild, asymptomatic 12/24 Na 128 12/25 Na 126 Start FR 1500cc/day and increase nutritional supplements to TID. 12/27 Na 124, recheck later in the day was 125, continue FR and nutritional supplements, recheck in am. If stable, may d/c to [facility]. Status: Acute (4) Alcohol abuse: Problem comment: 12/26 CIWA protocol, got dose of phenobarb 12/24, one dose of lorazepam overnight. CIWA scores are 0-11. Continue Thiamine, folate, vitamin 12/27 CIWA scores 0 overgnight Status: Inactive (5) Malnutrition: Problem comment: Protein calorie malnutrition, moderate, alcohol use likely contributing to this Continue nutritional supplements Status: Inactive (6) Hypertension: Problem comment: Continue lisinopril Status: Chronic (7) Diabetes mellitus, type II: Problem comment: Diet controlled. Hemoglobin A1c today is 5.6%. Status: Chronic (8) Mitral regurgitation: Problem comment: - at 1st I could not find information about this and the patient was unaware of the murmur. I ordered an echocardiogram for this and her complaint of shortness of breath, which was done today. Preliminary results of echocardiogram are reassuring. No further workup prior to surgery. Status: Chronic (9) Dyspnea: Problem comment: I suspect this is likely secondary to alcohol use and deconditioning. Echocardiogram completed 12/24, reassuring Status: Acute (10) Ascending aortic aneurysm: Problem comment: On preliminary echo this is 3.4 cm 12/24/24, f/u annually as outpatient Status: Acute (11) Acute alcohol intoxication: Problem comment: - above the driving legal limit - this likely contributed to her fall last night - not able to consent for surgery at this time, recheck in the morning - 12/25 medical blood alcohol level this morning is nondetectable, resolved Status: Resolved Plan Will need rehab Total Time Spent Total Time Spent: Today I spent 35 minutes seeing the patient, speaking with her daughter, reviewing [facility] and [facility] notes/diagnostics/labs, discussing the care plan with our care team that includes social work, PT/OT, pharmacy, RT, long-term and documenting my impressions and plan in the medical record. Subjective Time Seen by Provider: 09:14 Date Seen: 12/27/24 Interval history: Vanessa's daughter, Marilyn, was in the room with her this morning. Vanessa had no complaints. She has been working with PT and OT. Exam Narrative: Exam Narrative: CIWA scores zero overnight. General: No acute distress. Awake, alert, oriented. No pallor. No jaundice. Oropharynx: Clear. Mucous membranes moist. Cardiovascular: Regular rate and rhythm. Grade 2/6 systolic murmur, unchanged. Respiratory: Clear to auscultation bilaterally. No wheezes or crackles. Abdomen: Bowel sounds present. Soft, nondistended, nontender. Extremities: Right hip bandages are C/D/I. No lower extremity edema. Const: Vital Signs, click to edit/add: Vital Signs - 24 hr 12/26/24 15:37 12/26/24 15:37 12/26/24 15:37 Temperature 98.2 F 98.2 F Pulse Rate Pulse Rate [Left R adial] 82 82 82 Respiratory Rate 16 16 16 Blood Pressure [Le ft Arm] 132/60 132/60 Blood Pressure [ri ght Ar,] Pulse Oximetry 93 93 Oxygen Delivery Me thod Nasal Cannula Nasal Cannula Oxygen Flow Rate 1 1 12/26/24 15:37 12/26/24 15:54 12/26/24 19:50 Temperature Pulse Rate 79 Pulse Rate [Left R adial] Respiratory Rate 16 Blood Pressure [Le ft Arm] Blood Pressure [ri ght Ar,] Pulse Oximetry 93 93 Oxygen Delivery Me thod Nasal Cannula Oxygen Flow Rate 1 12/26/24 19:50 12/26/24 19:50 12/26/24 22:49 Temperature 97.2 F L 97.2 F L 97.9 F Pulse Rate Pulse Rate [Left R adial] 91 91 94 Respiratory Rate 18 18 16 Blood Pressure [Le ft Arm] 142/66 H 142/66 H 137/59 L Blood Pressure [ri ght Ar,] Pulse Oximetry 93 93 95 Oxygen Delivery Me thod Nasal Cannula Nasal Cannula Nasal Cannula Oxygen Flow Rate 1 1 1 12/26/24 22:52 12/26/24 22:52 12/26/24 22:53 Temperature 97.9 F Pulse Rate 87 Pulse Rate [Left R adial] 94 Respiratory Rate 16 16 Blood Pressure [Le ft Arm] 137/59 L Blood Pressure [ri ght Ar,] Pulse Oximetry 95 95 Oxygen Delivery Me thod Nasal Cannula Nasal Cannula Oxygen Flow Rate 1 1 12/26/24 23:00 12/27/24 02:46 12/27/24 02:47 Temperature 98.3 F Pulse Rate Pulse Rate [Left R adial] 94 80 Respiratory Rate 16 18 Blood Pressure [Le ft Arm] 131/65 Blood Pressure [ri ght Ar,] Pulse Oximetry 96 96 Oxygen Delivery Me thod Nasal Cannula Oxygen Flow Rate 1 12/27/24 03:00 12/27/24 07:00 12/27/24 07:00 Temperature 98.3 F 97.8 F 97.8 F Pulse Rate Pulse Rate [Left R adial] 80 71 71 Respiratory Rate 18 16 16 Blood Pressure [Le ft Arm] 131/65 131/65 Blood Pressure [ri ght Ar,] 129/73 129/73 Pulse Oximetry 96 98 98 Oxygen Delivery Me thod Nasal Cannula Nasal Cannula Nasal Cannula Oxygen Flow Rate 1 1 1 12/27/24 07:00 12/27/24 07:00 12/27/24 07:00 Temperature Pulse Rate 76 Pulse Rate [Left R adial] 71 Respiratory Rate 16 16 Blood Pressure [Le ft Arm] Blood Pressure [ri ght Ar,] Pulse Oximetry 98 Oxygen Delivery Me thod Nasal Cannula Oxygen Flow Rate 1 12/27/24 10:03 12/27/24 11:00 12/27/24 11:00 Temperature 97.2 F L Pulse Rate Pulse Rate [Left R adial] 79 86 Respiratory Rate 16 Blood Pressure [Le ft Arm] Blood Pressure [ri ght Ar,] 150/60 H 151/60 H Pulse Oximetry 92 94 94 Oxygen Delivery Me thod Room Air Room Air Oxygen Flow Rate 1 Labs Labs: Laboratory Results - last 24 hr 12/27/24 12/27/24 08:14 14:31 WBC 9.08 RBC 3.01 L Hgb 10.2 L Hct 29.1 L MCV 97 MCH 34 MCHC 35 RDW Coeff of Ruthie 12.4 Plt Count 153 Neut % (Auto) 84.1 H Lymph % (Auto) 6.9 L [place] % (Auto) 7.9 Eos % (Auto) 0.3 Baso % (Auto) 0.6 Neut # (Auto) 7.60 H Lymph # (Auto) 0.60 L [place] # (Auto) 0.70 Eos # (Auto) 0.03 Baso # (Auto) 0.05 Abs Immat Gran (auto) 0.02 Imm/Tot Granulo (auto) 0.2 Sodium 124 L* 125 L Potassium 4.5 Chloride 92 L Carbon Dioxide 26 Anion Gap 6 L BUN 14 Creatinine 0.8 Estimated Creat Clear 40.72 Estimated GFR 73 Glucose 144 H Calcium 9.1
[2024-12-28 00:58] VITALS: PULSE 75
[2024-12-28 03:00] VITALS: BP 162/60; RESP 18; TEMP 36.6; O2SAT 98
--- NOTE | 2024-12-28 06:24 | PC.NURSE ---
Shift note ([id number]): Patient pleasant, alert and oriented.?Dressing clean, dry and intact. Rated left hip pain 2/10. Pivot transferred to bedside commode with walker, gait belt and two assist. ?
[2024-12-28 07:00] VITALS: BP 140/80; PULSE 74; PULSE 80; RESP 18; TEMP 36.6; O2SAT 99
[2024-12-28 08:05] LABS: Sodium* 127 mmol/L (135-149)
[2024-12-28] MEDS: THIAMINE 100 MG TABLET 250 MG PO (08:43)
[2024-12-28] MEDS: ACETAMINOPHEN 325 MG TABLET 650 MG PO (08:43)
[2024-12-28] MEDS: SENNOSIDES 1 TAB TABLET 2 TAB PO (08:43)
[2024-12-28] MEDS: OXYCODONE 5 MG TABLET PO (08:43)
[2024-12-28] MEDS: FLUOXETINE HCL 20 MG CAPSULE 60 MG PO (08:43)
[2024-12-28] MEDS: MULTIVITAMIN/MINERALS 1 TABLET 1 TAB PO (08:44)
[2024-12-28] MEDS: ASPIRIN 81 MG TABLET EC PO (08:44)
[2024-12-28] MEDS: FOLIC ACID 1 MG TABLET PO (08:44)
[2024-12-28] MEDS: SODIUM CHLORIDE 0.9 % (FLUSH) 10 ML SYRINGE 5 ML IVF (08:45)
[2024-12-28] MEDS: lisinopriL 5 MG TABLET PO (08:45)
--- NOTE | 2024-12-28 10:10 | PC.SOCIAL ---
Addendum entered and electronically signed by France Schneider LCSW 12/28/24 15:07: LANA received call from Love at [facility] that who inquired about if oxycodone should be given 4 hours or 6 hours as they can't do a range. LANA spoke with Shilpa Salcedo who states every 6 hours. Love then asked how much they should give based on pain ratings as the dose was also a range. LANA called Shilpa who states that 2.5mg with pain 1-4 and 5mg with pain 5-10. LANA informed Love of this. LANA then received another contact from [facility] asking for a new order for this. LANA contacted Shilpa who sent a new order to [facility] pharmacy. LANA informed Love this was complete. Original Note: Discharge planning: LANA called patient's daughter who is still on board with patient going today and taking non-emergent transportation. LANA emailed [facility] and informed of transportation time of arrival at the facility for 1200. LANA sent PAS number and orders. LANA met with patient and reviewed Important Message from Medicare and provided her with her copy. Patient had no questions or concerns at this time.
--- NOTE | 2024-12-28 11:25 | PC.NURSE ---
Discharge: Pt alert and orientated X3. Pt pleasant and cooperative. VSS and on RA. Tolerated regular diet. Denies n/v/sob. PRN Oxycodone and Tylenol administered before therapy. CIWA 0. Right hip dressing c/d/i. Active ice to op site. Pt discharged to short term rehab stay at 1103 via non-emergent transport. Daughter aware and notified of time left. IV removed tip intact. Discharge instructions signed by patient and belongings sheet signed by patient. Discharge paperwork sent via non-emergent ambulance. Nurse to nurse report given at 1120.
== END 2024-12-28 11:03 | DRG 481 ==
LOC: ED 06:39 → MEDSURG 08:46
PROVIDERS: Orthopaedic Surgery; Admitting Provider Family Medicine; Emergency Provider Family Medicine; PCP Student in an Organized Health Care Education/Training Program; Visit Provider Family Medicine
PROC: 0QS606Z Reposition Right Upper Femur with Intramedullary Internal Fixation Device, Open Approach (ICD-10-PCS; principal; 2024-12-25 11:30)
DX: S72.141A Displaced intertrochanteric fracture of right femur, initial encounter for closed fracture (principal); E44.0 Moderate protein-calorie malnutrition; E87.1 Hypo-osmolality and hyponatremia; F10.239 Alcohol dependence with withdrawal, unspecified; G89.18 Other acute postprocedural pain; E11.42 Type 2 diabetes mellitus with diabetic polyneuropathy; W01.0XXA Fall on same level from slipping, tripping and stumbling without subsequent striking against object, initial encounter; Z91.81 History of falling; Y92.009 Unspecified place in unspecified non-institutional (private) residence as the place of occurrence of the external cause; F10.229 Alcohol dependence with intoxication, unspecified; Y90.6 Blood alcohol level of 120-199 mg/100 ml; R06.00 Dyspnea, unspecified; F41.9 Anxiety disorder, unspecified; M16.0 Bilateral primary osteoarthritis of hip; E11.3299 Type 2 diabetes mellitus with mild nonproliferative diabetic retinopathy without macular edema, unspecified eye; I10 Essential (primary) hypertension; I34.0 Nonrheumatic mitral (valve) insufficiency; I71.21 Aneurysm of the ascending aorta, without rupture; E04.2 Nontoxic multinodular goiter; J45.909 Unspecified asthma, uncomplicated; N32.81 Overactive bladder; K22.70 Barrett's esophagus without dysplasia; M85.80 Other specified disorders of bone density and structure, unspecified site; F32.A Depression, unspecified; E78.00 Pure hypercholesterolemia, unspecified; Z79.82 Long term (current) use of aspirin; Z85.3 Personal history of malignant neoplasm of breast; Z68.30 Body mass index [BMI] 30.0-30.9, adult
CPT/HCPCS: 01210; 01230; 36415; 64450; 71045; 73502; 76000; 76942; 80048; 80053; 80306; 81001; 81003; 82077; 83036; 84295; 84484; 85025; 85027; 93005; 93306; 94761; 97110; 97116; 97162; 97165; 97530; 97535; 99140; 99284; 99285; A9153; A9270; C1713; J0690; J1100; J1171; J2060; J2250; J2371; J2405; J2704; J3490; J7030; J7120

== ENCOUNTER 2024-12-28 11:06 | Outpatient (CLI) | payer MEDICARE, SELFPAY | END 2024-12-28 11:07 | disposition home or self-care (01) | LOC: AMB 12-29 13:48 | PROVIDERS: PCP Student in an Organized Health Care Education/Training Program; Visit Provider Emergency Medicine | DX: R53.1 Weakness (principal); Z98.890 Other specified postprocedural states | CPT/HCPCS: A0425; A0428 ==